=== PATIENT | female | born 1945 | race Caucasian/White ===

== ENCOUNTER 2019-04-28 09:16 | Inpatient (IN) ==
--- NOTE | 2019-04-28 09:43 | Emergency Department Note ---
Disposition Clinical Impression: Anemia Qualifiers: Anemia type: iron deficiency Iron deficiency anemia type: unspecified iron deficiency Qualified Code(s): D50.9 - Iron deficiency anemia, unspecified Disposition: Admitted As Inpatient Condition: Serious Time of Disposition: 11:40 General Adult HPI - General Chief complaint: ED Weakness Stated complaint: Bleeding from biopsy site Time Seen by Provider: 04/28/19 09:18 Source: patient Limitations: no limitations Nursing Notes Reviewed: Yes Vital Signs Reviewed: Yes - History of Present Illness HPI Narrative: 73 year old female with history of leukemia presents with generalized weakness. She had skin biopsy in the past Tuesday in [facility]. She noticed biopsy site continually bleeding on left arm. Her oncologist applied topical medicine on biopsy site. pt stated the bleeding stopped. But she still felt generalized weakness. She reported black stools in the past. Patient stated she got a phone call from [facility] that her hemoglobin level was 7.1. She was suggested to come to ER for blood transfusion. Pt stated she was on Chemotherapy. But it caused severe vaginal swelling and bleeding. The chemotherapy was stopped last week. Pt stopped ASA 81 mg three days ago. Onset (ago): day(s) (3) Pain Scale: 0 - Related Data Home Medications Medication Instructions Recorded Confirmed Omeprazole [PriLOSEC] 20 mg PO DAILY 04/28/19 04/28/19 PredniSONE [Deltasone] 20 mg PO DAILY 04/28/19 04/28/19 Allergies Allergy/AdvReac Type Severity Reaction Status Date / Time Penicillins Allergy Unknown increased Verified 03/05/19 11:42 heart rate Sulfa (Sulfonamide Allergy Unknown Unknown Verified 03/05/19 11:42 Antibiotics) ciprofloxacin [From Cipro] AdvReac See Verified 03/05/19 11:42 Comments Constitutional: Denies: fever, chills Eyes: Denies: eye pain ENT ED: Denies: ear pain Cardiovascular: Denies: chest pain Respiratory: Denies: cough Gastrointestinal: Denies: abdominal pain Genitourinary: Denies: urgency Musculoskeletal: Denies: back pain Integumentary: Denies: rash Neurological: Denies: headache Psychiatric: Denies: anxiety Endocrine: Reports: fatigue Hematological/Lymphatic: Denies: easy bleeding Allergic/Immunologic: Denies: facial swelling Past Medical History - Past Medical History Medical history: Reports: cancer Surgical history: Reports: appendectomy, , hysterectomy Psychiatric history: Reports: no psych history - Social History Smoking Status: Never smoker Smokeless Tobacco Status: No Alcohol use: Reports: none Drug use: Reports: none Physical Exam - General Limitations: no limitations General appearance: alert, in no apparent distress - Head Head exam: atraumatic - Eye Eye exam: Present: normal appearance - ENT ENT exam: normal exam - Neck Neck exam: Present: normal inspection - Chest Chest inspection: Present: normal inspection - Respiratory Respiratory exam: Present: normal lung sounds bilaterally - Cardiovascular Cardiovascular exam: Present: regular rate - Abdominal Exam Abdominal exam: Present: soft, Non-Tender - Extremities Exam Extremities exam: Present: normal inspection, full ROM. Absent: tenderness - Back Exam Back exam: Present: normal inspection, full ROM. Absent: tenderness - Neurological Exam Neurological exam: Present: alert, oriented X3, CN II-XII intact. Absent: motor sensory deficit - Psychiatric Psychiatric exam: Present: normal affect - Skin Skin exam: Present: warm. Absent: intact (biopsy site on left forearm, no active bleeding) Course Vital Signs Temperature 98.2 F 04/28/19 09:17 Pulse Rate 80 04/28/19 09:17 Respiratory Rate 18 04/28/19 09:17 Blood Pressure 124/54 04/28/19 09:17 O2 Sat by Pulse Oximetry 99 04/28/19 09:17 Temperature 98.9 F 04/28/19 12:31 Pulse Rate 77 04/28/19 12:31 Respiratory Rate 16 04/28/19 13:53 Blood Pressure 111/44 04/28/19 13:53 O2 Sat by Pulse Oximetry 99 04/28/19 12:31 Oxygen Delivery Oxygen Delivery Room Air Medical Decision Making - [facility] Narrative Medical decision making narrative: 73 year old female with history of CLL presents with generalized weakness. pt reported recently biopsy on left arm. It kept bleeding since Tuesday. Oncologist in [facility] applied topic medication on it. The bleeding stopped. Pt reported black stool twice in the past week. She had hemoglobin level 7.1 last week. Today's labs: hemoglobin 6.6, white cell 329. Pt declined rectal exam. Spoke with [facility] oncall Hemotologist. She is not sure pt's oncologist's plan for CLL; pt's situation is chronic; she needs admission for observation and blood transfusion. Shared decision making with pt and her daughter. Pt is offered two options admit to [place] or transfer to [facility]. Pt prefers to stay in [place] for blood transfusion. Dr. Hayes has seen the patient and agrees the above plan. 2 units red cell ordered. - Lab Data Lab results reviewed: Yes I reviewed the patient's lab results. Result diagrams: 04/28/19 09:34 04/28/19 09:34 Lab Results 04/28/19 04/28/19 04/28/19 Range/Units 09:34 09:34 09:34 WBC 329.2 H* (4.3-11.1) K/mcL RBC 2.95 L (3.82-4.97) M/mcL Hgb 6.6 L (11.5-15.4) g/dL Hct 25.4 L (35.3-44.9) % MCV 86.1 (83.0-100.0) fL MCH 22.4 L (28.0-33.3) pg MCHC 26.0 L (31.6-35.5) g/dL RDW 20.4 H (11.5-14.5) % Plt Count 321 (140-400) K/mcL MPV 8.5 L (9.4-12.4) fL Immature Gran % Test Not Performed Seg Neutrophils % Test Not Performed Lymphocytes % 98.0 % Monocytes % 2.0 % Eosinophils % Test Not Performed Basophils % Test Not Performed Neutrophils # Test Not Performed Lymphocytes # 322.6 H (0.6-4.6) K/mcL Monocytes # 6.6 H (0.0-1.3) K/mcL Eosinophils # Test Not Performed Basophils # Test Not Performed Smudge Cells Present A (Not Present) Platelet Estimate Normal (Normal) Anisocytosis 1+ A (Not Present) PT 11.8 (9.4-12.1) Seconds INR 1.0 APTT 29.7 (26.0-36.0) Seconds Sodium 133 L (136-145) mEq/L Potassium 5.1 (3.5-5.1) mEq/L Chloride 98 (98-107) mEq/L Carbon Dioxide 26 (23-29) mEq/L BUN 24 H (8-23) mg/dL Creatinine 0.84 (0.60-1.20) mg/dL Est GFR ( Amer) > 60 (> 60) Est GFR (Non-Af Amer) > 60 (> 60) BUN/Creatinine Ratio 29 H (6-26) Glucose 101 (70-105) mg/dL Calculated Osmolality 280 (280-300) Calcium 8.9 (8.6-10.3) mg/dL Total Bilirubin 0.5 (0.3-1.0) mg/dL AST 21 (13-39) Units/L ALT 20 (7-52) Units/L Alkaline Phosphatase 97 (34-104) Units/L Serum Total Protein 6.4 (6.4-8.9) g/dL Albumin 3.6 (3.5-5.7) g/dL Globulin 2.8 (2.4-3.5) g/dL Albumin/Globulin Ratio 1.3 (1.1-2.2) Urine Color (Yellow) Urine Clarity (Clear) Urine pH (5.0-8.0) pH Units Ur Specific [place] (1.010-1.025) Urine Protein (Neg-Trace) mg/dL Urine Glucose (UA) (Normal) mg/dL Urine Ketones (Negative) mg/dL Urine Blood (Negative) Urine Nitrite (Negative) Urine Bilirubin (Negative) Urine Urobilinogen (Normal) mg/dL Ur Leukocyte Esterase (Negative) Urine Microscopic RBC (0-3) per hpf Urine Microscopic WBC (0-3) per hpf Ur Squamous Epith Cells (None-Few) per lpf Urine Bacteria (None-Few) per hpf Hyaline Casts (None-Few) per lpf Ur Culture Indicated? (NO) Blood Type Antibody Screen MTS Gel Crossmatch 04/28/19 04/28/19 Range/Units 09:43 11:30 WBC (4.3-11.1) K/mcL RBC (3.82-4.97) M/mcL Hgb (11.5-15.4) g/dL Hct (35.3-44.9) % MCV (83.0-100.0) fL MCH (28.0-33.3) pg MCHC (31.6-35.5) g/dL RDW (11.5-14.5) % Plt Count (140-400) K/mcL MPV (9.4-12.4) fL Immature Gran % Seg Neutrophils % Lymphocytes % % Monocytes % % Eosinophils % Basophils % Neutrophils # Lymphocytes # (0.6-4.6) K/mcL Monocytes # (0.0-1.3) K/mcL Eosinophils # Basophils # Smudge Cells (Not Present) Platelet Estimate (Normal) Anisocytosis (Not Present) PT (9.4-12.1) Seconds INR APTT (26.0-36.0) Seconds Sodium (136-145) mEq/L Potassium (3.5-5.1) mEq/L Chloride (98-107) mEq/L Carbon Dioxide (23-29) mEq/L BUN (8-23) mg/dL Creatinine (0.60-1.20) mg/dL Est GFR ( Amer) (> 60) Est GFR (Non-Af Amer) (> 60) BUN/Creatinine Ratio (6-26) Glucose (70-105) mg/dL Calculated Osmolality (280-300) Calcium (8.6-10.3) mg/dL Total Bilirubin (0.3-1.0) mg/dL AST (13-39) Units/L ALT (7-52) Units/L Alkaline Phosphatase (34-104) Units/L Serum Total Protein (6.4-8.9) g/dL Albumin (3.5-5.7) g/dL Globulin (2.4-3.5) g/dL Albumin/Globulin Ratio (1.1-2.2) Urine Color Yellow (Yellow) Urine Clarity Cloudy A (Clear) Urine pH 6.0 (5.0-8.0) pH Units Ur Specific [place] 1.017 (1.010-1.025) Urine Protein 30 H (Neg-Trace) mg/dL Urine Glucose (UA) Normal (Normal) mg/dL Urine Ketones Negative (Negative) mg/dL Urine Blood Trace H (Negative) Urine Nitrite Positive A (Negative) Urine Bilirubin Negative (Negative) Urine Urobilinogen Normal (Normal) mg/dL Ur Leukocyte Esterase Large H (Negative) Urine Microscopic RBC 5-15 H (0-3) per hpf Urine Microscopic WBC TNTC H (0-3) per hpf Ur Squamous Epith Cells Many H (None-Few) per lpf Urine Bacteria Many H (None-Few) per hpf Hyaline Casts None Seen (None-Few) per lpf Ur Culture Indicated? YES A (NO) Blood Type A POSITIVE Antibody Screen NEGATIVE MTS Gel Crossmatch See Detail - Radiology Data Radiology results reviewed: Yes I reviewed the patient's radiology results. HISTORY: ORDERING SYSTEM PROVIDED HISTORY: ofelia Acute shortness of breath FINDINGS: Right port catheter stable. Heart, mediastinum and pulmonary vascularity are normal. The lungs are clear. There are no skeletal abnormalities in the chest. XR/XR chest 1V portable IMPRESSION: No significant finding in the chest. D/ / Joshua Xiao MD / Joshua Xiao MD Interpreting Provider: Joshua Xiao MD
--- NOTE | 2019-04-28 09:57 | Emergency Department Note ---
Disposition Clinical Impression: Anemia Qualifiers: Anemia type: iron deficiency Iron deficiency anemia type: unspecified iron deficiency Qualified Code(s): D50.9 - Iron deficiency anemia, unspecified Disposition: Admitted As Inpatient Condition: Serious Referrals: Michelet Almeida Jr, MD [Primary Care Provider] - Forms: ED Satisfaction Letter Time of Disposition: 12:30 General Adult HPI - General Chief complaint: ED Weakness Stated complaint: Bleeding from biopsy site Time Seen by Provider: 04/28/19 09:18 Source: patient Limitations: no limitations - History of Present Illness Pain Scale: 0 - Related Data Home Medications Medication Instructions Recorded Confirmed Folic Acid [FA-8] 0.8 mg PO 03/05/19 Previous Rx's Medication Instructions Recorded Azithromycin [Azithromycin 6-Tab 250 mg PO PER PKG DI #6 tab 03/05/19 Pack] Ibrutinib [Imbruvica] 420 mg PO DAILY #30 tablet 03/05/19 Allopurinol [Zyloprim 300 MG] 300 mg PO DAILY 14 Days #14 tablet 03/12/19 Allergies Allergy/AdvReac Type Severity Reaction Status Date / Time Penicillins Allergy Unknown increased Verified 03/05/19 11:42 heart rate Sulfa (Sulfonamide Allergy Unknown Unknown Verified 03/05/19 11:42 Antibiotics) ciprofloxacin [From Cipro] AdvReac See Verified 03/05/19 11:42 Comments Constitutional: Denies: fever, chills Eyes: Denies: eye pain ENT ED: Denies: ear pain Cardiovascular: Denies: chest pain Respiratory: Denies: cough Gastrointestinal: Denies: abdominal pain Genitourinary: Denies: urgency Musculoskeletal: Denies: back pain Integumentary: Denies: rash Neurological: Denies: headache Psychiatric: Denies: anxiety Endocrine: Reports: fatigue Hematological/Lymphatic: Denies: easy bleeding Allergic/Immunologic: Denies: facial swelling Past Medical History - Past Medical History Medical history: Reports: cancer Surgical history: Reports: appendectomy, , hysterectomy Psychiatric history: Reports: no psych history - Social History Smoking Status: Never smoker Smokeless Tobacco Status: No Alcohol use: Reports: none Drug use: Reports: none Physical Exam - General Limitations: no limitations General appearance: alert, in no apparent distress Course Vital Signs Temperature 98.2 F 04/28/19 09:17 Pulse Rate 80 04/28/19 09:17 Respiratory Rate 18 04/28/19 09:17 Blood Pressure 124/54 04/28/19 09:17 O2 Sat by Pulse Oximetry 99 04/28/19 09:17 Temperature 98.6 F 04/28/19 12:16 Pulse Rate 77 04/28/19 12:16 Respiratory Rate 16 04/28/19 12:16 Blood Pressure 108/38 04/28/19 12:16 O2 Sat by Pulse Oximetry 99 04/28/19 12:16 Oxygen Delivery Oxygen Delivery Room Air Medical Decision Making - Lab Data Result diagrams: 04/28/19 09:34 04/28/19 09:34 Lab Results 04/28/19 04/28/19 04/28/19 Range/Units 09:34 09:34 09:34 WBC 329.2 H* (4.3-11.1) K/mcL RBC 2.95 L (3.82-4.97) M/mcL Hgb 6.6 L (11.5-15.4) g/dL Hct 25.4 L (35.3-44.9) % MCV 86.1 (83.0-100.0) fL MCH 22.4 L (28.0-33.3) pg MCHC 26.0 L (31.6-35.5) g/dL RDW 20.4 H (11.5-14.5) % Plt Count 321 (140-400) K/mcL MPV 8.5 L (9.4-12.4) fL Immature Gran % Test Not Performed Seg Neutrophils % Test Not Performed Lymphocytes % 98.0 % Monocytes % 2.0 % Eosinophils % Test Not Performed Basophils % Test Not Performed Neutrophils # Test Not Performed Lymphocytes # 322.6 H (0.6-4.6) K/mcL Monocytes # 6.6 H (0.0-1.3) K/mcL Eosinophils # Test Not Performed Basophils # Test Not Performed Smudge Cells Present A (Not Present) Platelet Estimate Normal (Normal) Anisocytosis 1+ A (Not Present) PT 11.8 (9.4-12.1) Seconds INR 1.0 APTT 29.7 (26.0-36.0) Seconds Sodium 133 L (136-145) mEq/L Potassium 5.1 (3.5-5.1) mEq/L Chloride 98 (98-107) mEq/L Carbon Dioxide 26 (23-29) mEq/L BUN 24 H (8-23) mg/dL Creatinine 0.84 (0.60-1.20) mg/dL Est GFR ( Amer) > 60 (> 60) Est GFR (Non-Af Amer) > 60 (> 60) BUN/Creatinine Ratio 29 H (6-26) Glucose 101 (70-105) mg/dL Calculated Osmolality 280 (280-300) Calcium 8.9 (8.6-10.3) mg/dL Total Bilirubin 0.5 (0.3-1.0) mg/dL AST 21 (13-39) Units/L ALT 20 (7-52) Units/L Alkaline Phosphatase 97 (34-104) Units/L Serum Total Protein 6.4 (6.4-8.9) g/dL Albumin 3.6 (3.5-5.7) g/dL Globulin 2.8 (2.4-3.5) g/dL Albumin/Globulin Ratio 1.3 (1.1-2.2) Urine Color (Yellow) Urine Clarity (Clear) Urine pH (5.0-8.0) pH Units Ur Specific [place] (1.010-1.025) Urine Protein (Neg-Trace) mg/dL Urine Glucose (UA) (Normal) mg/dL Urine Ketones (Negative) mg/dL Urine Blood (Negative) Urine Nitrite (Negative) Urine Bilirubin (Negative) Urine Urobilinogen (Normal) mg/dL Ur Leukocyte Esterase (Negative) Urine Microscopic RBC (0-3) per hpf Urine Microscopic WBC (0-3) per hpf Ur Squamous Epith Cells (None-Few) per lpf Urine Bacteria (None-Few) per hpf Hyaline Casts (None-Few) per lpf Ur Culture Indicated? (NO) Blood Type Antibody Screen MTS Gel Crossmatch 04/28/19 04/28/19 Range/Units 09:43 11:30 WBC (4.3-11.1) K/mcL RBC (3.82-4.97) M/mcL Hgb (11.5-15.4) g/dL Hct (35.3-44.9) % MCV (83.0-100.0) fL MCH (28.0-33.3) pg MCHC (31.6-35.5) g/dL RDW (11.5-14.5) % Plt Count (140-400) K/mcL MPV (9.4-12.4) fL Immature Gran % Seg Neutrophils % Lymphocytes % % Monocytes % % Eosinophils % Basophils % Neutrophils # Lymphocytes # (0.6-4.6) K/mcL Monocytes # (0.0-1.3) K/mcL Eosinophils # Basophils # Smudge Cells (Not Present) Platelet Estimate (Normal) Anisocytosis (Not Present) PT (9.4-12.1) Seconds INR APTT (26.0-36.0) Seconds Sodium (136-145) mEq/L Potassium (3.5-5.1) mEq/L Chloride (98-107) mEq/L Carbon Dioxide (23-29) mEq/L BUN (8-23) mg/dL Creatinine (0.60-1.20) mg/dL Est GFR ( Amer) (> 60) Est GFR (Non-Af Amer) (> 60) BUN/Creatinine Ratio (6-26) Glucose (70-105) mg/dL Calculated Osmolality (280-300) Calcium (8.6-10.3) mg/dL Total Bilirubin (0.3-1.0) mg/dL AST (13-39) Units/L ALT (7-52) Units/L Alkaline Phosphatase (34-104) Units/L Serum Total Protein (6.4-8.9) g/dL Albumin (3.5-5.7) g/dL Globulin (2.4-3.5) g/dL Albumin/Globulin Ratio (1.1-2.2) Urine Color Yellow (Yellow) Urine Clarity Cloudy A (Clear) Urine pH 6.0 (5.0-8.0) pH Units Ur Specific [place] 1.017 (1.010-1.025) Urine Protein 30 H (Neg-Trace) mg/dL Urine Glucose (UA) Normal (Normal) mg/dL Urine Ketones Negative (Negative) mg/dL Urine Blood Trace H (Negative) Urine Nitrite Positive A (Negative) Urine Bilirubin Negative (Negative) Urine Urobilinogen Normal (Normal) mg/dL Ur Leukocyte Esterase Large H (Negative) Urine Microscopic RBC 5-15 H (0-3) per hpf Urine Microscopic WBC TNTC H (0-3) per hpf Ur Squamous Epith Cells Many H (None-Few) per lpf Urine Bacteria Many H (None-Few) per hpf Hyaline Casts None Seen (None-Few) per lpf Ur Culture Indicated? YES A (NO) Blood Type A POSITIVE Antibody Screen NEGATIVE MTS Gel Crossmatch See Detail Attestation Statement - Attestation Attestation: For this encounter, I have reviewed the AMBULATORY SERVICE REPRESENTATIVE or PA documentation, treatment plan, and medical decision making; and I have had face to face time with this patient. Patient presents with a request for a blood transfusion. Patient states she had a biopsy on her arm performed and it bled for 2 straight days. She states the urgent care doctor and her oncologist told her to come to the ED to get a blood transfusion. Patient's last transfusion was in 2012. She is currently not on any active treatment for her chronic leukemia. She denies fevers. She does admit to generalized weakness. She also admits to dark her bowel movements this week. She had an episode of near syncope a few days ago. No chest pain or shortness of breath. Denies urinary symptoms. Denies cough. On examination she is in no distress. Her lungs are clear. Her abdomen is soft nontender. Plan. Patient refuses rectal exam. Basic labs. Type and screen. Chest x-ray urinalysis. Hemoglobin is 6. The case was discussed with her oncologist at [facility]. I agree that she needs a blood transfusion. Nothing to do acutely for her leukocytosis. Patient will be admitted. Chest X-Ray 04/28/19 09:55 IMPRESSION: No significant finding in the chest. D/ / Joshua Xiao MD / Joshua Xiao MD Interpreting Provider: Joshua Xiao MD
[2019-04-28 10:15] LABS: Alanine Aminotransferase 20 Units/L (7-52); Albumin 3.6 g/dL (3.5-5.7); Albumin/Globulin Ratio 1.3 (1.1-2.2); Alkaline Phosphatase 97 Units/L (34-104); Aspartate Amino Transferase 21 Units/L (13-39); BUN/Creatinine Ratio 29 (6-26); Bilirubin,Total 0.5 mg/dL (0.3-1.0); Blood Urea Nitrogen 24 mg/dL (8-23); Calcium 8.9 mg/dL (8.6-10.3); Carbon Dioxide 26 mEq/L (23-29); Chloride 98 mEq/L (98-107); Globulin 2.8 g/dL (2.4-3.5); Glucose 101 mg/dL (70-105); Osmolality,Calculated 280 (280-300); Potassium 5.1 mEq/L (3.5-5.1); Sodium 133 mEq/L (136-145); Total Protein 6.4 g/dL (6.4-8.9); eGFR For African Americans > 60 (> 60); eGFR For Non-African Americans > 60 (> 60)
[2019-04-28 10:32] LABS: Hematocrit 25.4 % (35.3-44.9); Red Cell Distribution Width 20.4 % (11.5-14.5)
[2019-04-28 10:34] LABS: Hemoglobin 6.6 g/dL (11.5-15.4); Mean Corpuscular Hemoglobin 22.4 pg (28.0-33.3); Mean Corpuscular Volume 86.1 fL (83.0-100.0); Mean Platelet Volume 8.5 fL (9.4-12.4); Platelet Count 321 K/mcL (140-400); Red Blood Count 2.95 M/mcL (3.82-4.97)
[2019-04-28 10:43] LABS: Prothrombin Time 11.8 Seconds (9.4-12.1)
[2019-04-28 10:44] LABS: White Blood Count 329.2 K/mcL (4.3-11.1)
[2019-04-28 10:46] LABS: Activated Partial Thrombo Time 29.7 Seconds (26.0-36.0)
[2019-04-28 11:45] LABS: Bilirubin,Urine Negative (Negative); Blood,Urine Trace (Negative); Clarity,Urine Cloudy (Clear); Color,Urine Yellow (Yellow); Glucose,Urine (UA) Normal (Normal); Ketones,Urine Negative (Negative); Leukocyte Esterase,Urine Large (Negative); Nitrite,Urine Positive (Negative); Protein,Urine 30 mg/dL (Neg-Trace); Specific Gravity,Urine 1.017 (1.010-1.025); Urobilinogen,Urine Normal (Normal)
[2019-04-28 11:47] LABS: Bacteria,Urine Many per hpf (None-Few); Hyaline Casts,Urine None Seen per lpf (None-Few); Squamous Epithelial Cell,Urine Many per lpf (None-Few); WBC,Urine TNTC per hpf (0-3)
[2019-04-28 11:55] LABS: Lymphocytes # 322.6 K/mcL (0.6-4.6); Monocytes # 6.6 K/mcL (0.0-1.3)
[2019-04-28 11:57] LABS: Anisocytosis 1+ (Not Present); Platelet Estimate Normal (Normal); Smudge Cells Present (Not Present)
[2019-04-28] MEDS ORDERED: 0.9 % Sodium Chloride 500 ML ONE (11:58)
[2019-04-28] MEDS ORDERED: Naloxone 0.4 MG/ML INJ IVP PRN (12:38)
[2019-04-28] MEDS ORDERED: Ondansetron 4 MG/2 ML VIAL IVP PRN (12:40)
--- NOTE | 2019-04-28 13:05 | Internal Med History&Physical ---
Date of Encounter: 04/28/19 Time of Encounter: 13:00 Internal Medicine - H&P: HPI Chief complaint: Anemia Admitted From: Emergency Dept Plans for Post Hospital Care: Home History of present illness: Ms. Vega is a 73 year old female with history of CLL who follows at the [facility] who presents with low hemoglobin. She had skin biopsy in the past Tuesday in [facility]. She noticed biopsy site continually bleeding on left arm. A physician at an urgent care put some topical agent on it and it stopped bleeding. But she since then she has felt generalized weakness. She reported a couple of black stool. Patient stated she got a phone call from [facility] that her hemoglobin level was 7.1. She was suggested to come to ER for blood transfusion. Pt stated she was on Chemotherapy. But it caused severe vaginal swelling and bleeding. The chemotherapy was stopped last week. Pt stopped ASA three days ago. Hgb was 6.6 in the ED. WBC count was over 300K. UA was positive but no urinary symptoms. Denies fever, chills, headche, blurry vision, nausea,vomiting, chest pain, abd pain, urinary symptoms, or neurological symptosm. Past Med Surg Social Fam HX - Past Medical History Medical history: cancer Additional medical history: Lukemia (CLL) Psychiatric history: no psych history - Past Surgical History Surgical History: appendectomy, , hysterectomy - Social History Smoking Status: Never smoker Smokeless Tobacco Status: No Alcohol use: none Drug use: none Internal Medicine - H&P: Meds Azithromycin [Azithromycin 6-Tab Pack] 250 mg PO PER PKG DI #6 tab 03/05/19 [Rx] Folic Acid [FA-8] 0.8 mg PO 03/05/19 [History] Ibrutinib [Imbruvica] 420 mg PO DAILY #30 tablet 03/05/19 [Rx] Allopurinol [Zyloprim 300 MG] 300 mg PO DAILY 14 Days #14 tablet 03/12/19 [Rx] Allergy/AdvReac Type Severity Reaction Status Date / Time Penicillins Allergy Unknown increased Verified 03/05/19 11:42 heart rate Sulfa (Sulfonamide Allergy Unknown Unknown Verified 03/05/19 11:42 Antibiotics) ciprofloxacin [From Cipro] AdvReac See Verified 03/05/19 11:42 Comments All Systems PM: A 10-system review of systems was performed and is negative for pertinent findings except as documented above in the HPI. Review of systems: All systems reviewed are negative except as above. - Constitutional Vitals: Temp Pulse Resp BP Pulse Ox 98.9 F 77 16 111/51 99 04/28/19 12:31 04/28/19 12:31 04/28/19 12:31 04/28/19 12:31 04/28/19 12:31 Exam: GEN: NAD HEENT: AT, NC, No cyanosis, oral mucosa is moist, No JVD Lymphatics: No lymphadenoapthy Eyes: Extrocular muscles intact, anicteric CVS:RRR. S1, S2, No m/r/g RESP: CTAB ABD: Soft, NT, ND, +BS EXT: No edema, No rashes, 2+ DP NEURO: Nonfocal, CN II-XII intact, No focal motor or sensory deficits Psych: Cooperative, Not anxious or depressed Internal Med - H&P Results - Labs CBC & Chem 7: 04/28/19 09:34 04/28/19 09:34 Labs: Short CBC 04/28/19 Range/Units 09:34 WBC 329.2 H* (4.3-11.1) K/mcL Hgb 6.6 L (11.5-15.4) g/dL Hct 25.4 L (35.3-44.9) % Plt Count 321 (140-400) K/mcL Neutrophils # Test Not Performed [facility] 04/28/19 09:34 Sodium 133 L Potassium 5.1 Chloride 98 Carbon Dioxide 26 BUN 24 H Creatinine 0.84 Glucose 101 Calcium 8.9 Liver Function 04/28/19 Range/Units 09:34 Total Bilirubin 0.5 (0.3-1.0) mg/dL AST 21 (13-39) Units/L ALT 20 (7-52) Units/L Alkaline Phosphatase 97 (34-104) Units/L Albumin 3.6 (3.5-5.7) g/dL Urine 04/28/19 Range/Units 11:30 Urine Color Yellow (Yellow) Urine Clarity Cloudy A (Clear) Urine pH 6.0 (5.0-8.0) pH Units Ur Specific [place] 1.017 (1.010-1.025) Urine Protein 30 H (Neg-Trace) mg/dL Urine Glucose (UA) Normal (Normal) mg/dL - Impressions ITS Impressions Chest X-Ray 04/28/19 09:55 IMPRESSION: No significant finding in the chest. D/ / Joshua Xiao MD / Joshua Xiao MD Interpreting Provider: Joshua Xiao MD - Assessment and Plan (1) Anemia Current Visit: Yes Status: Acute Assessment and plan: 2 units ordered in the ED. labs in am. check FOBT. If + will consult GI. Qualifiers: Anemia type: iron deficiency Iron deficiency anemia type: unspecified iron deficiency Qualified Code(s): D50.9 - Iron deficiency anemia, unspecified (2) Asymptomatic bacteriuria Current Visit: Yes Status: Acute (3) CLL (chronic lymphocytic leukemia) Current Visit: No Status: Chronic Assessment and plan: f/u with lens polisher at [facility] (4) DVT prophylaxis Current Visit: Yes Status: Acute Assessment and plan: scds - Time Spent With Patient Total time spent is greater than 50% in coordination of care (as documented) at patient's floor/unit and/or counseling patient:
[2019-04-28] MEDS ORDERED: 0.9 % Sodium Chloride 250 ML ONE (14:25)
[2019-04-29 09:47] LABS: Mean Corpuscular HGB Conc 27.6 g/dL (31.6-35.5); Mean Corpuscular Hemoglobin 23.5 pg (28.0-33.3); Mean Platelet Volume 8.8 fL (9.4-12.4); Platelet Count 255 K/mcL (140-400); Red Blood Count 3.41 M/mcL (3.82-4.97); Red Cell Distribution Width 19.6 % (11.5-14.5)
[2019-04-29 09:55] LABS: BUN/Creatinine Ratio 30 (6-26); Blood Urea Nitrogen 20 mg/dL (8-23); Calcium 8.9 mg/dL (8.6-10.3); Carbon Dioxide 24 mEq/L (23-29); Chloride 101 mEq/L (98-107); Glucose 139 mg/dL (70-105); Magnesium 2.2 mg/dL (1.6-2.6); Osmolality,Calculated 289 (280-300); Potassium 4.4 mEq/L (3.5-5.1); Sodium 137 mEq/L (136-145); eGFR For African Americans > 60 (> 60); eGFR For Non-African Americans > 60 (> 60)
[2019-04-29 09:57] LABS: White Blood Count 249.6 K/mcL (4.3-11.1)
[2019-04-29 10:52] LABS: Lymphocytes # 229.6 K/mcL (0.6-4.6)
[2019-04-29 10:53] LABS: Platelet Estimate Normal (Normal); Smudge Cells Present (Not Present)
[2019-04-29] MEDS: predniSONE 20 MG TABLET PO SCH (12:06)
--- NOTE | 2019-04-29 14:51 | Internal Med Progress Note ---
Hospitalist Progress Note - Encounter Date of Encounter: 04/29/19 Time of Encounter: 14:49 - Subjective Interval History: Patient seen and examined. Transfused 2 units PRBCs yesterday his hemoglobin is 8.0. Came back positive for blood in the stools - Exam Vitals: Temp Pulse Resp BP Pulse Ox 97.6 F 68 16 111/66 98 04/29/19 11:07 04/29/19 11:07 04/29/19 11:07 04/29/19 11:07 04/29/19 11:16 Exam: GEN: NAD CVS: RRR. S1, S2, No m/r/g RESP: CTAB ABD: Soft, NT, ND, +BS EXT: No edema. 2+ DP. No rashes NEURO: Nonfocal - Assessment and Plan (1) Anemia Current Visit: Yes Status: Acute Assessment and Plan: 2 units ordered in the ED yesterday. Hgb 8 today. no need to transfuse today. + FOBT and GI consulted. NPO at midnight (2) GI bleed Current Visit: Yes Status: Acute Assessment and Plan: Reported dark stools. + FOBT. GI consulted. IV PPI BID ordered. (3) Asymptomatic bacteriuria Current Visit: Yes Status: Acute Assessment and Plan: Not treating. (4) CLL (chronic lymphocytic leukemia) Current Visit: No Status: Chronic Assessment and Plan: f/u with urban sociologist at [facility] (5) DVT prophylaxis Current Visit: Yes Status: Acute Assessment and Plan: scds - Time Spent with Patient Total time spent is greater than 50% in coordination of care (as documented) at patient's floor/unit and/or counseling patient: Internal Medicine: Result - Labs CBC & Chem 7: 04/29/19 08:32 04/29/19 08:32 Labs: Short CBC 04/29/19 Range/Units 08:32 WBC 249.6 H* (4.3-11.1) K/mcL Hgb 8.0 L (11.5-15.4) g/dL Hct 29.0 L (35.3-44.9) % Plt Count 255 (140-400) K/mcL Neutrophils # 5.0 (1.6-8.9) K/mcL BMP 04/29/19 08:32 Sodium 137 Potassium 4.4 Chloride 101 Carbon Dioxide 24 BUN 20 Creatinine 0.67 Glucose 139 H Calcium 8.9 - ABG Interpretation ABG results: PT/INR, D-dimer PT 11.8 Seconds (9.4-12.1) 04/28/19 09:34 Consult Discharge Plan - Plan Referrals: Michelet Almeida Jr, MD [Primary Care Provider] - (1) Anemia Qualifiers: Anemia type: iron deficiency Iron deficiency anemia type: unspecified iron deficiency Qualified Code(s): D50.9 - Iron deficiency anemia, unspecified
[2019-04-29] MEDS: Pantoprazole 40 MG VIAL IVP SCH (17:51)
[2019-04-30] MEDS: Pantoprazole 40 MG VIAL IVP SCH ×2 (04:17→17:01)
--- NOTE | 2019-04-30 06:18 | Electrocardiograph Report ---
[facility] Test Date: 2019-04-28 Pat Name: Miguelina Vega Department: EXAM9 Room: 2A38 Gender: F Advanced Developer: : 1945 Requested By: Eun See Order Number: [id number] Reading MD: Tio Burr Measurements Intervals [place] Rate: 81 P: 48 WA: 137 QRS: -55 QRSD: 109 T: 67 QT: 369 QTc: 429 Interpretive Statements Sinus rhythm Left anterior fascicular block Abnormal R-wave progression, late transition Probable left ventricular hypertrophy Electronically Signed On 04-30-2019 6:16:19 EDT by Tio Burr
[2019-04-30 06:30] LABS: Red Blood Count 3.28 M/mcL (3.82-4.97)
[2019-04-30 06:31] LABS: Hematocrit 27.9 % (35.3-44.9); Hemoglobin 7.7 g/dL (11.5-15.4); Mean Corpuscular HGB Conc 27.6 g/dL (31.6-35.5); Mean Corpuscular Hemoglobin 23.5 pg (28.0-33.3); Mean Corpuscular Volume 85.1 fL (83.0-100.0); Mean Platelet Volume 9.2 fL (9.4-12.4); Platelet Count 269 K/mcL (140-400)
[2019-04-30 06:38] LABS: White Blood Count 260.5 K/mcL (4.3-11.1)
[2019-04-30 06:47] LABS: BUN/Creatinine Ratio 36 (6-26); Blood Urea Nitrogen 24 mg/dL (8-23); Calcium 8.9 mg/dL (8.6-10.3); Carbon Dioxide 26 mEq/L (23-29); Chloride 100 mEq/L (98-107); Glucose 88 mg/dL (70-105); Magnesium 2.1 mg/dL (1.6-2.6); Osmolality,Calculated 283 (280-300); Potassium 5.1 mEq/L (3.5-5.1); Sodium 135 mEq/L (136-145); eGFR For African Americans > 60 (> 60); eGFR For Non-African Americans > 60 (> 60)
--- NOTE | 2019-04-30 08:29 | Internal Med Progress Note ---
Hospitalist Progress Note - Encounter Date of Encounter: 04/30/19 Time of Encounter: 08:28 - Subjective Interval History: Patient seen and examined. Transfused 2 units PRBCs on admission. Hgb down to 7.7. Came back + FOBT. GI consulted. - Exam Vitals: Temp Pulse Resp BP Pulse Ox 98.9 F 66 16 123/67 99 04/30/19 07:20 04/30/19 07:20 04/30/19 07:20 04/30/19 07:20 04/30/19 07:20 Exam: GEN: NAD CVS: RRR. S1, S2, No m/r/g RESP: CTAB ABD: Soft, NT, ND, +BS EXT: No edema. 2+ DP. No rashes NEURO: Nonfocal - Assessment and Plan (1) Anemia Current Visit: Yes Status: Acute Assessment and Plan: 2 units ordered in the ED on admission. Hgb down to 7.7 this am. Was 8 yesterday. no need to transfuse today. + FOBT and GI consulted. NPO. IV PPI ordered. (2) GI bleed Current Visit: Yes Status: Acute Assessment and Plan: Reported dark stools. + FOBT. GI consulted. IV PPI BID ordered. (3) Asymptomatic bacteriuria Current Visit: Yes Status: Acute Assessment and Plan: Not treating initially but today she tells me she is having burning sensation. At first she thought it was due to recent labia procedure she had. Will start IV rocephin. (4) UTI (urinary tract infection) Current Visit: Yes Status: Acute Assessment and Plan: Start Rocephin. f/u on cultures (5) CLL (chronic lymphocytic leukemia) Current Visit: No Status: Chronic Assessment and Plan: f/u with peoplesoft analyst at [facility] (Dr. Franks). Does not want our hematologists/oncologists involved. Please fax discharge and hospital details to Dr. Franks at discharge. (6) DVT prophylaxis Current Visit: Yes Status: Acute Assessment and Plan: scds - Time Spent with Patient Total time spent is greater than 50% in coordination of care (as documented) at patient's floor/unit and/or counseling patient: Internal Medicine: Result - Labs CBC & Chem 7: 04/30/19 05:33 04/30/19 05:33 Labs: Short CBC 04/29/19 04/30/19 Range/Units 08:32 05:33 WBC 249.6 H* 260.5 H* (4.3-11.1) K/mcL Hgb 8.0 L 7.7 L (11.5-15.4) g/dL Hct 29.0 L 27.9 L (35.3-44.9) % Plt Count 255 269 (140-400) K/mcL Neutrophils # 5.0 (1.6-8.9) K/mcL BMP 04/29/19 04/30/19 08:32 05:33 Sodium 137 135 L Potassium 4.4 5.1 Chloride 101 100 Carbon Dioxide 24 26 BUN 20 24 H Creatinine 0.67 0.67 Glucose 139 H 88 Calcium 8.9 8.9 - ABG Interpretation ABG results: PT/INR, D-dimer PT 11.8 Seconds (9.4-12.1) 04/28/19 09:34 Consult Discharge Plan - Plan Referrals: Michelet Almeida Jr, MD [Primary Care Provider] - (1) Anemia Qualifiers: Anemia type: iron deficiency Iron deficiency anemia type: unspecified iron deficiency Qualified Code(s): D50.9 - Iron deficiency anemia, unspecified (4) UTI (urinary tract infection) Qualifiers: Urinary tract infection type: site unspecified Hematuria presence: without h ematuria Qualified Code(s): N39.0 - Urinary tract infection, site not specified
[2019-04-30] MEDS: predniSONE 20 MG TABLET PO SCH (10:22)
[2019-04-30] MEDS: Acetaminophen 325 MG TABLET PO PRN (10:53)
[2019-04-30] MEDS: cefTRIAXone 2,000 MG in Water for inj. (sterile) 20 ML 20 ML IVP SCH (10:59)
[2019-04-30 11:29] LABS: Neutrophils # 260.5 K/mcL (1.6-8.9); Smudge Cells Present (Not Present)
[2019-04-30 11:30] LABS: Platelet Estimate Normal (Normal)
[2019-04-30] MEDS ORDERED: Lidocaine -MPF 2% 2 ML VIAL ONE (11:34)
[2019-04-30] MEDS ORDERED: *HR* Propofol 200 MG/20 ML VIAL IVP ONE (11:34)
--- NOTE | 2019-04-30 11:48 | Gastroenterology Consult Note ---
<Alexys Nieves - Last Filed: 04/30/19 11:46> Date of Encounter: 04/30/19 Time of Encounter: 09:55 - Assessment and plan (1) Anemia Status: Acute Assessment and plan: On admission, Hgb 6.6 and this morning Hgb 7.7 with MCV 85.1. Continue to monitor CBC and transfuse PRBC as needed. Plan for EGD today to r/o esophagitis, gastritis, duodenitis, PUD, MW tear, or AVM. Keep NPO for EGD.. Qualifiers: Anemia type: iron deficiency Iron deficiency anemia type: unspecified iron deficiency Qualified Code(s): D50.9 - Iron deficiency anemia, unspecified (2) GI bleed Status: Acute Assessment and plan: Fecal occult blood test positive. Continue PPI. Plan for EGD today to r/o esophagitis, gastritis, duodenitis, PUD, MW tear, or AVM. Keep NPO for EGD. Qualifiers: GI bleed type/associated pathology: unspecified gastrointestinal hemorrhage type Qualified Code(s): K92.2 - Gastrointestinal hemorrhage, unspecified (3) CLL (chronic lymphocytic leukemia) Status: Chronic - Time Spent With Patient Total time spent is greater than 50% in coordination of care (as documented) at patient's floor/unit and/or counseling patient: GI History of Present Illness - Data of Consult Patient: new to practice Consult date: 04/30/19 Requesting Physician: Raeann Mcmullen - Consult Narrative Reason for consult: Acute anemia History of present illness: Ms. Vega is a 73 year old female with PMHx of CLL (follow at [facility]) who presented with Hgb 6.6. She reports having a skin biopsy of left arm at [facility] which continued to bleed. A physician at an urgent care put some topical agent on it and it stopped bleeding. She also reports having several episodes of black stool. She denies fever, chills, chest pain, abdominal pain, nausea, vomiting, or hematochezia. Patient stated she got a phone call from [facility] that her hemoglobin level was 7.1 and was suggested to come to ER for blood transfusion. On admission, Hgb 6.6 and this morning Hgb 7.7 with MCV 85.1. Procedures: Colonoscopy 05/17/2016 Dr. Sarah Ann: Aborted due to restricted no ability of colon, Sigmoid and rectum normal. NSAIDs: None Anticoagulation: None Past Med Surg Social Fam HX - Past Medical History Medical history: cancer, DVT Additional medical history: Lukemia (CLL) Psychiatric history: no psych history - Past Surgical History Surgical History: appendectomy, , hysterectomy - Social History Smoking Status: Never smoker Smokeless Tobacco Status: No Alcohol use: none Drug use: none - Gastrointestinal Gastrointestinal: Present: as per HPI - Constitutional Constitutional: as per HPI - EENT Eyes: as per HPI Ears: Present: as per HPI Nose, mouth and throat: Present: as per HPI - Cardiovascular Cardiovascular ROS: Present: as per HPI - Respiratory Respiratory IM: Present: as per HPI - Genitourinary Genitourinary: Absent: change in color, Urinary frequency - Neurological ROS Neurological GI: Present: as per HPI - Hematologic/Lymphatic Hematologic/Lymphatic pediatric: Present: as per HPI - Musculoskeletal Musculoskeletal ROS GI: Present: as per HPI - Integumentary Integumentary GI: Present: as per HPI - Psychiatric ROS Psychiatric GI: Present: as per HPI - Endocrine Endocrine IM: Present: as per HPI - Constitutional Vitals: Temp Pulse Resp BP Pulse Ox 100.0 F H 72 16 134/72 98 04/30/19 10:50 04/30/19 10:50 04/30/19 10:50 04/30/19 10:50 04/30/19 10:50 General appearance: Present: cooperative, A&O X 3, no acute distress, answers questions appropriately - Head Head exam: Present: atraumatic, normocephalic - Eye Eye exam: Present: normal appearance, sclera anicteric - ENT ENT exam: Present: mucous membranes dry - Neck Neck exam general surgery: Present: normal inspection, trachea midline - Respiratory Respiratory exam: Present: CTAB. Absent: rales, rhonchi - Cardiovascular Cardiovascular exam: Present: RRR, +S1, +S2 - GI/Abdominal GI/Abdominal exam: Present: soft, no peritoneal signs. Absent: distended, firm, guarding, tenderness - Rectal Rectal exam: Present: deferred - Extremities Exam Extremities exam: Present: warm - Neurological Exam Neurological exam: Present: no focal deficits - Psychiatric Psychiatric exam: Present: normal affect, normal mood - Skin Skin exam: Present: dry, intact, normal color, warm Results - Labs CBC & Chem 7: 04/30/19 05:33 04/30/19 05:33 Labs: Last Result 04/30/19 05:33 Calcium 8.9 Entire Visit 04/30/19 05:33 Hgb 7.7 L Hct 27.9 L - ABG ABG results: PT/INR, D-dimer PT 11.8 Seconds (9.4-12.1) 04/28/19 09:34 Consult Discharge Plan - Plan Instructions: Omeprazole (By mouth), Eye Lubricant (Into the eye), Chest Pain (DC), Acute Abdominal Pain (DC) Referrals: Vivian Huang MD [Other] - 05/29/19 1:20 pm (Please follow-up with Dr. Huang on May 29 at 01:20) Michelet Almeida Jr, MD [Primary Care Provider] - 05/11/19 2:30 pm (Please follow-up as scheduled with Dr. Almeida) Prescriptions: Artificial Tears SOLN [Akwa Tears] 1 drop BOTH EYES QID PRN #1 bottle PRN Reason: Allergy Symptoms Omeprazole [PriLOSEC] 40 mg PO BIDAC #60 capsule. <Lazarus Greene - Last Filed: 05/07/19 06:07> Date of Encounter: 04/30/19 - Time Spent With Patient Total time spent is greater than 50% in coordination of care (as documented) at patient's floor/unit and/or counseling patient: GI History of Present Illness - Data of Consult Requesting Physician: Suzy Guadarrama - Consult Narrative History of present illness: Ms. Vega is a 73 year old female - Constitutional Vitals: Temp Pulse Resp BP Pulse Ox 97.9 F 70 17 100/49 97 05/05/19 16:37 05/05/19 16:37 05/05/19 16:37 05/05/19 16:37 05/05/19 16:37 Results - Labs CBC & Chem 7: 05/05/19 01:37 05/05/19 01:37 - ABG ABG results: PT/INR, D-dimer PT 11.8 Seconds (9.4-12.1) 04/28/19 09:34 - Attending Attestation I have personally performed a face to face evaluation on this patient. I have reviewed and agree with the care plan. History and Exam by me shows:Patient admitted wtih severe anemia. She has underlying CLL. Plan EGD first. History of a colonoscopy in past. Will review.
--- NOTE | 2019-04-30 12:46 | Anesthesia Evaluation PreOp ---
Date of Encounter: 04/30/19 Time of Encounter: 12:45 - Past History Planned Operation: EGD Cardiac History: Other (Anemia) Pulmonary History: Denies Any Significant HX COOK PRESSURE History: Denies Any Significant HX Other Medical History: GERD, Other (CLL being followed at [facility]) Anesthesia History: No Prior Anesthetic Complications Alcohol Use: none Drug use: none Medications and Allergies Hydrocortisone/Pramoxine [Hydrocort-Pramoxine 2.5%-1% cm] 1 applic TP AD 9 [History] Omeprazole [PriLOSEC] 20 mg PO DAILY 04/28/19 [History] PredniSONE [Deltasone] 20 mg PO DAILY 04/28/19 [History] Lidocaine 1 applic TP QID PRN 04/30/19 [History] Allergy/AdvReac Type Severity Reaction Status Date / Time Sulfa (Sulfonamide Allergy Unknown Unknown Verified 03/05/19 11:42 Antibiotics) cefdinir Allergy Redness of Verified 04/30/19 11:08 Skin Penicillins AdvReac Unknown increased Verified 04/30/19 10:48 heart rate ciprofloxacin [From Cipro] AdvReac increased Verified 04/30/19 11:13 heart rate ibrutinib [From Imbruvica] AdvReac See Verified 04/30/19 12:30 Comments - Meds/Allergy Pre-op Review Medications Reviewed: Yes Allergies Reviewed: Yes Beta Blockers on Current Med List: No Anesthesia Results - Labs 04/30/19 05:33 04/30/19 05:33 - Imaging EKG: report reviewed (SR Left Anterior Fascicular Block) Additional studies: 2015 ECHO EF 60% Anesthesia Exam O2 Sat O2 Sat by Pulse Oximetry 98 O2 Sat by Pulse Oximetry 99 O2 Sat by Pulse Oximetry 98 O2 Sat by Pulse Oximetry 98 O2 Sat by Pulse Oximetry 95 O2 Sat by Pulse Oximetry 95 Vital Signs Temp Pulse Resp BP Pulse Ox 98.2 F 80 18 124/54 99 04/28/19 09:17 04/28/19 09:17 04/28/19 09:17 04/28/19 09:17 04/28/19 09:17 Height: 5'6 Weight: 180 lbs NPO (# of Hours): MN Pain Scale: 0 - HEENT Pupil (Motor): Pupils equal, EOMI Oral Opening: Greater than 3 - COOK PRESSURE LOC: Oriented COOK PRESSURE Motor: Normal RUE, Normal LUE, Normal RLE, Normal LLE, Normal Face COOK PRESSURE Sensory: Normal: RUE, LUE, RLE, LLE, Face - Cardiac Rhythm: Regular Murmur: None JVD: No Carotid Bruit: No - Pulmonary Breath Sounds: bilateral Clear Respiratory Effort: Symmetrical Anesthesia Assess/Plan ASA Score: 3 (CLL Anemia) Level of consciousness: Cooperative, Oriented Anesthetic Plan: MAC Autologous Blood: No Monitoring Plan: Standard Monitors Recovery Plan: Other (Discussed MAC, agrees to proceed)
--- NOTE | 2019-04-30 14:03 | Anesthesia Evaluation Post Op ---
Date of Encounter: 04/30/19 Time of Encounter: 13:30 - Vital Signs Vital Signs: Vital Signs/O2 Sat/Glucose, Most Current Temp Pulse Resp BP Pulse Ox 04/30/19 13:09 98.3 F 72 16 126/67 100 04/30/19 10:50 100.0 F H 72 16 134/72 98 - Lungs Lungs: Clear Ascult./Percussion - Airway Airway: Non-obstructed - Cardiovascular Regular Rate - Mental Status Mental Status: Alert & Oriented, Answers Appropriately - Pain Pain Scale: 0 - Nausea Vomiting Nausea Vomiting: Not Present - Hydration Hydration: NPO - Discharge PostOp Status: Transfer Patient to floor
[2019-05-01] MEDS: Pantoprazole 40 MG VIAL IVP SCH ×2 (06:11→17:13)
[2019-05-01 06:47] LABS: BUN/Creatinine Ratio 27 (6-26); Blood Urea Nitrogen 19 mg/dL (8-23); Calcium 9.1 mg/dL (8.6-10.3); Carbon Dioxide 26 mEq/L (23-29); Chloride 99 mEq/L (98-107); Glucose 96 mg/dL (70-105); Osmolality,Calculated 278 (280-300); Potassium 4.4 mEq/L (3.5-5.1); Sodium 133 mEq/L (136-145); eGFR For African Americans > 60 (> 60); eGFR For Non-African Americans > 60 (> 60)
[2019-05-01 06:56] LABS: Hematocrit 28.5 % (35.3-44.9); Hemoglobin 7.8 g/dL (11.5-15.4); Mean Corpuscular HGB Conc 27.4 g/dL (31.6-35.5); Mean Corpuscular Hemoglobin 23.1 pg (28.0-33.3); Mean Corpuscular Volume 84.3 fL (83.0-100.0); Mean Platelet Volume 8.7 fL (9.4-12.4); Platelet Count 273 K/mcL (140-400); Red Blood Count 3.38 M/mcL (3.82-4.97); Red Cell Distribution Width 20.5 % (11.5-14.5)
[2019-05-01 07:51] LABS: White Blood Count 267.7 K/mcL (4.3-11.1)
[2019-05-01 08:23] LABS: Lymphocytes # 254.3 K/mcL (0.6-4.6); Monocytes # 5.4 K/mcL (0.0-1.3); Neutrophils # 5.4 K/mcL (1.6-8.9); Platelet Estimate Normal (Normal); Smudge Cells Present (Not Present)
[2019-05-01] MEDS: predniSONE 20 MG TABLET PO SCH (08:27)
[2019-05-01] MEDS: cefTRIAXone 2,000 MG in Water for inj. (sterile) 20 ML 20 ML IVP SCH (08:27)
--- NOTE | 2019-05-01 14:09 | Internal Med Progress Note ---
Hospitalist Progress Note - Encounter Date of Encounter: 05/01/19 Time of Encounter: 14:08 - Subjective Interval History: Patient was seen and examined at bedside-discuss lab results as well as results of EGD with the patient. No active bleeding from wound on left arm. Discussed with patient evaluation by Lissy hematology concerning anemia. Patient did agree to be evaluated however would like information sent to the [facility]. - Exam Vitals: Temp Pulse Resp BP Pulse Ox 98.7 F 71 18 115/65 96 05/01/19 12:12 05/01/19 12:12 05/01/19 12:12 05/01/19 12:12 05/01/19 12:12 Exam: GEN: NAD CVS: RRR. S1, S2, No m/r/g RESP: CTAB ABD: Soft, NT, ND, +BS EXT: No edema. 2+ DP. No rashes NEURO: Nonfocal - Assessment and Plan (1) CLL (chronic lymphocytic leukemia) Current Visit: No Status: Chronic Assessment and Plan: f/u with bridge attacher at [facility] (Dr. Franks). Please fax discharge and hospital details to Dr. Franks at discharge. Patient states she would allow hematology oncology to evaluate her concerning anemia (2) Anemia Current Visit: Yes Status: Acute Assessment and Plan: 2 units ordered in the ED on admission. Hgb down to 7. 0.8 this a.m. no need to transfuse today. + FOBT GI consult and underwent EGD -a single recently bleeding angiodysplastic lesion in the stomach. Treated with bipolar zhgkagt-[id number]-fycwu hiatal hernia (3) Asymptomatic bacteriuria Current Visit: Yes Status: Acute Assessment and Plan: Not treating initially but today she tells me she is having burning sensation. At first she thought it was due to recent labia procedure she had. Will start IV rocephin. (4) DVT prophylaxis Current Visit: Yes Status: Acute Assessment and Plan: scds (5) GI bleed Current Visit: Yes Status: Acute Assessment and Plan: Reported dark stools. + FOBT. GI consulted. IV PPI BID ordered. (6) UTI (urinary tract infection) Current Visit: Yes Status: Acute Assessment and Plan: Start Rocephin. f/u on cultures - Time Spent with Patient Total time spent is greater than 50% in coordination of care (as documented) at patient's floor/unit and/or counseling patient: Internal Medicine: Result - Labs CBC & Chem 7: 05/01/19 06:00 05/01/19 06:00 Labs: Short CBC 05/01/19 Range/Units 06:00 WBC 267.7 H* (4.3-11.1) K/mcL Hgb 7.8 L (11.5-15.4) g/dL Hct 28.5 L (35.3-44.9) % Plt Count 273 (140-400) K/mcL Neutrophils # 5.4 (1.6-8.9) K/mcL BMP 05/01/19 06:00 Sodium 133 L Potassium 4.4 Chloride 99 Carbon Dioxide 26 BUN 19 Creatinine 0.71 Glucose 96 Calcium 9.1 - ABG Interpretation ABG results: PT/INR, D-dimer PT 11.8 Seconds (9.4-12.1) 04/28/19 09:34 Consult Discharge Plan - Plan Referrals: Michelet Almeida Jr, MD [Primary Care Provider] - (2) Anemia Qualifiers: Anemia type: iron deficiency Iron deficiency anemia type: unspecified iron deficiency Qualified Code(s): D50.9 - Iron deficiency anemia, unspecified (5) GI bleed Qualifiers: GI bleed type/associated pathology: unspecified gastrointestinal hemorrhage type Qualified Code(s): K92.2 - Gastrointestinal hemorrhage, unspecified (6) UTI (urinary tract infection) Qualifiers: Urinary tract infection type: site unspecified Hematuria presence: without hematuria Qualified Code(s): N39.0 - Urinary tract infection, site not specified
[2019-05-01] MEDS: Pramoxine/Zinc acetate Lotion 177 APPL/177 ML BOTTLE TP SCH ×2 (17:13→20:32)
[2019-05-02] MEDS: Pantoprazole 40 MG VIAL IVP SCH ×2 (05:37→17:40)
[2019-05-02 06:27] LABS: Hematocrit 28.4 % (35.3-44.9); Hemoglobin 7.9 g/dL (11.5-15.4); Mean Corpuscular HGB Conc 27.8 g/dL (31.6-35.5); Mean Corpuscular Hemoglobin 23.4 pg (28.0-33.3); Mean Corpuscular Volume 84.3 fL (83.0-100.0); Platelet Count 256 K/mcL (140-400); Red Blood Count 3.37 M/mcL (3.82-4.97); Red Cell Distribution Width 20.4 % (11.5-14.5)
[2019-05-02 06:39] LABS: BUN/Creatinine Ratio 28 (6-26); Blood Urea Nitrogen 18 mg/dL (8-23); Carbon Dioxide 28 mEq/L (23-29); Chloride 100 mEq/L (98-107); Glucose 89 mg/dL (70-105); Osmolality,Calculated 281 (280-300); Potassium 4.4 mEq/L (3.5-5.1); Sodium 135 mEq/L (136-145); eGFR For African Americans > 60 (> 60); eGFR For Non-African Americans > 60 (> 60)
[2019-05-02 06:48] LABS: White Blood Count 229.5 K/mcL (4.3-11.1)
[2019-05-02 07:01] LABS: Lymphocytes # 174.4 K/mcL (0.6-4.6); Platelet Estimate Normal (Normal)
[2019-05-02 07:02] LABS: Smudge Cells Present (Not Present)
--- NOTE | 2019-05-02 08:27 | Internal Med Progress Note ---
Hospitalist Progress Note - Encounter Date of Encounter: 05/02/19 Time of Encounter: 15:00 - Subjective Interval History: No acute events overnight - Exam Vitals: Temp Pulse Resp BP Pulse Ox 97.8 F 66 18 135/64 98 05/02/19 07:34 05/02/19 07:34 05/02/19 07:34 05/02/19 07:34 05/02/19 07:34 Exam: GEN: NAD CVS: RRR. S1, S2, No m/r/g RESP: CTAB ABD: Soft, NT, ND, +BS EXT: No edema. 2+ DP. No rashes NEURO: Nonfocal - Assessment and Plan (1) CLL (chronic lymphocytic leukemia) Current Visit: Yes Status: Chronic Assessment and Plan: Has chronic CLL with fatigue and leukocytosis. Oncology consulted and recs pending Continue supportive care (2) Anemia Current Visit: Yes Status: Acute Assessment and Plan: Transfused 2 units PRBC total. GI consulted and underwent EGD. A single recently bleeding angiodysplastic lesion in the stomach. Treated with bipolar mbhggnq-srfaqornz-pukiz hiatal hernia Hemoglobin stable (3) Asymptomatic bacteriuria Current Visit: Yes Status: Acute Assessment and Plan: Stable. Completed course of rocephin (4) GI bleed Current Visit: Yes Status: Acute Assessment and Plan: Reported dark stools. + FOBT. GI consulted. IV PPI BID ordered. s/p endoscopy with angiodysplastic lesion (5) UTI (urinary tract infection) Current Visit: Yes Status: Acute Assessment and Plan: Start Rocephin. f/u on cultures (6) DVT prophylaxis Current Visit: Yes Status: Acute Assessment and Plan: scds - Time Spent with Patient Total time spent is greater than 50% in coordination of care (as documented) at patient's floor/unit and/or counseling patient: Internal Medicine: Result - Labs CBC & Chem 7: 05/02/19 05:31 05/02/19 05:31 Labs: Short CBC 05/02/19 Range/Units 05:31 WBC 229.5 H* (4.3-11.1) K/mcL Hgb 7.9 L (11.5-15.4) g/dL Hct 28.4 L (35.3-44.9) % Plt Count 256 (140-400) K/mcL Neutrophils # 23.0 H (1.6-8.9) K/mcL BMP 05/02/19 05:31 Sodium 135 L Potassium 4.4 Chloride 100 Carbon Dioxide 28 BUN 18 Creatinine 0.64 Glucose 89 Calcium 9.0 - ABG Interpretation ABG results: PT/INR, D-dimer PT 11.8 Seconds (9.4-12.1) 04/28/19 09:34 Consult Discharge Plan - Plan Referrals: Michelet Almeida Jr, MD [Primary Care Provider] - (2) Anemia Qualifiers: Anemia type: iron deficiency Iron deficiency anemia type: unspecified iron deficiency Qualified Code(s): D50.9 - Iron deficiency anemia, unspecified (4) GI bleed Qualifiers: GI bleed type/associated pathology: unspecified gastrointestinal hemorrhage type Qualified Code(s): K92.2 - Gastrointestinal hemorrhage, unspecified (5) UTI (urinary tract infection) Qualifiers: Urinary tract infection type: site unspecified Hematuria presence: without hematuria Qualified Code(s): N39.0 - Urinary tract infection, site not specified
[2019-05-02] MEDS: cefTRIAXone 2,000 MG in Water for inj. (sterile) 20 ML 20 ML IVP SCH (08:31)
[2019-05-02] MEDS: Pramoxine/Zinc acetate Lotion 177 APPL/177 ML BOTTLE TP SCH ×3 (08:32→23:42)
[2019-05-02] MEDS: predniSONE 20 MG TABLET PO SCH (08:32)
--- NOTE | 2019-05-02 18:12 | Oncology Inp Consult Note ---
<Ansley Lockett - Last Filed: 05/02/19 18:32> Date of Encounter: 05/02/19 Time of Encounter: 14:50 Assessment and Plan (1) CLL (chronic lymphocytic leukemia) Status: Chronic Assessment and plan: CLL (dx in 2012) Follows with Dr. Huang at [facility]. Last received treatment with ibrutinib (03/14/19-04/03/19?) Patient was scheduled to receive shipment of ibrutinib on 03/14/19. Noted lesion to vulva, perineal and pelvic edema, lesion to left forearm and right shoulder while taking ibrutinib. 3 biopsies taken at [facility] (dermatology) 04/17/19. Ibrutinib was NOT resumed upon discharge from [facility]. Plan: Follow up with Dr. Huang at [facility] after discharge. (2) Anemia Status: Acute Assessment and plan: Hgb 6.6 upon admission. Received 2 units pRBC's. Hgb 7.9. Plan: Monitor CBC daily. Transfusion parameters: 1 unit pRBC if hgb < 8, if symptomatic Qualifiers: Anemia type: iron deficiency Iron deficiency anemia type: unspecified iron deficiency Qualified Code(s): D50.9 - Iron deficiency anemia, unspecified - Data of Consult Requesting Physician: Suzy Guadarrama Primary Care Provider: Michelet Almeida Jr, MD - Consult Narrative Reason for consult: CLL History of present illness: Miguelina, a 73 yo female with known CLL, presented to the ED for anemia. She receives treatment for CLL at [facility] with Dr. Huang. She notes having a biopsy of left forearm with uncontrolled bleeding. Her Hgb upon presentation was 6.6. She received 2 units pRBC's upon admission. Miguelina notes that she had difficulty with her most recent chemotherapy and stopped it on 04/03/19 due to complications, including skin changes (lesions on her vulva). She notes that she also had black stools, was feeling lightheaded and dizzy, and has weakness and worsening fatigue. Treatment history: 1. FCR for 3 cycles for steroid refractory autoimmune hemolytic anemia (Jul 2013-Oct 2013) 2. Chronic tapering of steroids for autoimmune hemolytic anemia. 3. Ibrutinib 420 mg PO daily (03/14/19?-04/03/19) Medical history: Anemia, arthritis, CLL (dx 2013), GERD, eczema Review of systems: + fatigue, generalized weakness + skin changes: vulva + black stools. + easy bruising and bleeding. Denies nausea, vomiting, diarrhea, constipation, or abdominal pain. Denies headache or vision changes. Social history: . Lives in [place], [place]. Has 4 children that check in with her daily. Denies tobacco use. Denies alcohol use. Denies illicit drug use. Past Med Surg Social Fam HX - Past Medical History Medical history: cancer, DVT Additional medical history: Lukemia (CLL) Psychiatric history: no psych history - Past Surgical History Surgical History: appendectomy, , hysterectomy - Social History Smoking Status: Never smoker Smokeless Tobacco Status: No Alcohol use: none Drug use: none Medications and Allergies Hydrocortisone/Pramoxine [Hydrocort-Pramoxine 2.5%-1% cm] 1 applic TP AD 04/28/19 [History] Omeprazole [PriLOSEC] 20 mg PO DAILY 04/28/19 [History] PredniSONE [Deltasone] 20 mg PO DAILY 04/28/19 [History] Lidocaine 1 applic TP QID PRN 04/30/19 [History] Allergy/AdvReac Type Severity Reaction Status Date / Time Sulfa (Sulfonamide Allergy Unknown Unknown Verified 03/05/19 11:42 Antibiotics) cefdinir Allergy Redness of Verified 04/30/19 11:08 Skin Penicillins AdvReac Unknown increased Verified 04/30/19 10:48 heart rate ciprofloxacin [From Cipro] AdvReac increased Verified 04/30/19 11:13 heart rate ibrutinib [From Imbruvica] AdvReac See Verified 04/30/19 12:30 Comments Oncology - Exam - Additional findings Additional findings: General: Alert and oriented, fatigued-appearing. Pale. Mental Status: Affect appropriate for circumstances Skin: No rashes or petechiae. Scattered bruising. Left arm: coban. Lungs: Clear to auscultation Cardiovascular: Regular rate and rhythm. No gallops, murmurs, or rubs. Abdomen: Soft, nontender; Left and right inguinal firm masses noted. R Extremities: No edema. No calf swelling or tenderness. No joint deformity. Neurologic: Alert, cranial nerves II-XII intact; no focal weakness or sensory abnormalities. Oncology Inpatient Results Labs: Laboratory Results - last 24 hr 05/02/19 05/02/19 05:31 05:31 WBC 229.5 H* RBC 3.37 L Hgb 7.9 L Hct 28.4 L MCV 84.3 MCH 23.4 L MCHC 27.8 L RDW 20.4 H Plt Count 256 MPV 9.0 L Seg Neutrophils % 10.0 Lymphocytes % 76.0 Blast Cells % 14.0 H Neutrophils # 23.0 H Lymphocytes # 174.4 H Smudge Cells Present A Platelet Estimate Normal Sodium 135 L Potassium 4.4 Chloride 100 Carbon Dioxide 28 BUN 18 Creatinine 0.64 Est GFR ( Amer) > 60 Est GFR (Non-Af Amer) > 60 BUN/Creatinine Ratio 28 H Glucose 89 Calculated Osmolality 281 Calcium 9.0 Consult Discharge Plan - Plan Referrals: Michelet Almeida Jr, MD [Primary Care Provider] - Inpatient Charges Provider: Dr. Steve Howard <Kelly Howard - Last Filed: 05/03/19 09:40> Date of Encounter: 05/03/19 - Data of Consult Requesting Physician: Suzy Guadarrama Primary Care Provider: Michelet Almeida Jr, MD - Attending Attestation Patient has bilateralt abdominal adenopathy, anemia requiring transfusion, symptomatic with dizziness hemoglobin has improved since admission. Skin biopsy and while more biopsies from [facility] reviewed. Skin biopsy showing lymphocytosis. Patient reports that she had received courses of antibiotics while she was hospitalized. Upon discharge she is to follow-up at [facility] with her oncologist with whom (Dr Huang) pt's plan of care was communicated. Inpatient Charges Provider: Dr. Steve Howard Consult - Inpatient: [id number]
[2019-05-02] MEDS ORDERED: 0.9 % Sodium Chloride 250 ML ONE (21:48)
[2019-05-02] MEDS: Artificial Tears SOLN 15 ML BOTTLE BOTH EYES PRN (23:43)
[2019-05-02] MEDS: Acetaminophen 325 MG TABLET PO PRN (23:44)
[2019-05-03 04:38] LABS: Hematocrit 32.7 % (35.3-44.9); Hemoglobin 9.3 g/dL (11.5-15.4); Mean Corpuscular HGB Conc 28.4 g/dL (31.6-35.5); Mean Corpuscular Hemoglobin 24.3 pg (28.0-33.3); Mean Corpuscular Volume 85.4 fL (83.0-100.0); Mean Platelet Volume 8.9 fL (9.4-12.4); Platelet Count 260 K/mcL (140-400); Red Blood Count 3.83 M/mcL (3.82-4.97); Red Cell Distribution Width 20.1 % (11.5-14.5)
[2019-05-03 04:56] LABS: BUN/Creatinine Ratio 23 (6-26); Blood Urea Nitrogen 17 mg/dL (8-23); Calcium 8.8 mg/dL (8.6-10.3); Carbon Dioxide 27 mEq/L (23-29); Chloride 100 mEq/L (98-107); Glucose 87 mg/dL (70-105); Osmolality,Calculated 279 (280-300); Phosphorous 3.3 mg/dL (2.7-4.5); Potassium 4.1 mEq/L (3.5-5.1); Sodium 134 mEq/L (136-145); eGFR For African Americans > 60 (> 60); eGFR For Non-African Americans > 60 (> 60)
[2019-05-03 05:14] LABS: Lymphocytes # 190.2 K/mcL (0.6-4.6); Neutrophils # 46.3 K/mcL (1.6-8.9)
[2019-05-03 05:15] LABS: Anisocytosis 2+ (Not Present); Platelet Estimate Normal (Normal); Smudge Cells Present (Not Present)
[2019-05-03] MEDS: predniSONE 20 MG TABLET PO SCH (08:01)
[2019-05-03] MEDS: cefTRIAXone 2,000 MG in Water for inj. (sterile) 20 ML 20 ML IVP SCH (08:01)
[2019-05-03] MEDS: Pramoxine/Zinc acetate Lotion 177 APPL/177 ML BOTTLE TP SCH ×3 (08:02→21:17)
[2019-05-03] MEDS: Acetaminophen 325 MG TABLET PO PRN ×2 (10:24→21:17)
--- NOTE | 2019-05-03 14:57 | Internal Med Progress Note ---
Hospitalist Progress Note - Encounter Date of Encounter: 05/03/19 Time of Encounter: 14:00 - Subjective Interval History: Transfused one unit of PRBC overnight - Exam Vitals: Temp Pulse Resp BP Pulse Ox 98 F 69 18 111/66 96 05/03/19 12:07 05/03/19 12:07 05/03/19 12:07 05/03/19 12:07 05/03/19 12:07 Exam: GEN: NAD CVS: RRR. S1, S2, No m/r/g RESP: CTAB ABD: Soft, NT, ND, +BS EXT: No edema. 2+ DP. No rashes NEURO: Nonfocal - Assessment and Plan (1) CLL (chronic lymphocytic leukemia) Current Visit: Yes Status: Chronic Assessment and Plan: Has chronic CLL with fatigue and leukocytosis. Oncology consulted and recs pending Continue supportive care Was transfused one unit of PRBC overnight. Spiked a fever this am and was still lethargic. May be secondary to CLL vs infection Cotninue ceftriaxone, obtain CXr to r/o pneumonia. Will monitor overnight Will give one bolus of normal saline 500cc (2) Anemia Current Visit: Yes Status: Acute Assessment and Plan: Transfused 2 units PRBC total. GI consulted and underwent EGD. A single recently bleeding angiodysplastic lesion in the stomach. Treated with bipolar [id number]-[id number] hiatal hernia Hemoglobin stable (3) Asymptomatic bacteriuria Current Visit: Yes Status: Acute Assessment and Plan: Stable. Completed course of rocephin (4) GI bleed Current Visit: Yes Status: Acute Assessment and Plan: Reported dark stools. + FOBT. GI consulted. IV PPI BID ordered. s/p endoscopy with angiodysplastic lesion (5) UTI (urinary tract infection) Current Visit: Yes Status: Acute Assessment and Plan: Start Rocephin. f/u on cultures (6) DVT prophylaxis Current Visit: Yes Status: Acute Assessment and Plan: scds - Time Spent with Patient Total time spent is greater than 50% in coordination of care (as documented) at patient's floor/unit and/or counseling patient: Internal Medicine: Result - Labs CBC & Chem 7: 05/03/19 04:02 05/03/19 04:02 Labs: Short CBC 05/03/19 Range/Units 04:02 WBC 257.0 H* (4.3-11.1) K/mcL Hgb 9.3 L (11.5-15.4) g/dL Hct 32.7 L (35.3-44.9) % Plt Count 260 (140-400) K/mcL Neutrophils # 46.3 H (1.6-8.9) K/mcL BMP 05/03/19 04:02 Sodium 134 L Potassium 4.1 Chloride 100 Carbon Dioxide 27 BUN 17 Creatinine 0.75 Glucose 87 Calcium 8.8 - ABG Interpretation ABG results: PT/INR, D-dimer PT 11.8 Seconds (9.4-12.1) 04/28/19 09:34 - Impressions Impressions Chest X-Ray 05/03/19 10:31 IMPRESSION: Stable chest. No new acute cardiopulmonary findings. D/ / Sheeba Tim MD / Sheeba Tim MD Interpreting Provider: Sheeba Tim MD Consult Discharge Plan - Plan Referrals: Michelet Almeida Jr, MD [Primary Care Provider] - (2) Anemia Qualifiers: Anemia type: iron deficiency Iron deficiency anemia type: unspecified iron deficiency Qualified Code(s): D50.9 - Iron deficiency anemia, unspecified (4) GI bleed Qualifiers: GI bleed type/associated pathology: unspecified gastrointestinal hemorrhage type Qualified Code(s): K92.2 - Gastrointestinal hemorrhage, unspecified (5) UTI (urinary tract infection) Qualifiers: Urinary tract infection type: site unspecified Hematuria presence: without hematuria Qualified Code(s): N39.0 - Urinary tract infection, site not specified
[2019-05-03] MEDS: 0.9 % Sodium Chloride 500 ML IVC ONE ×2 (15:21→15:31)
--- NOTE | 2019-05-03 16:29 | Oncology Inp Progress Note ---
<Anslye Lockett - Last Filed: 05/03/19 16:26> Date of Encounter: 05/03/19 Time of Encounter: 13:35 (1) CLL (chronic lymphocytic leukemia) Current Visit: Yes Status: Chronic Assessment and plan: CLL (dx in 2012) Follows with Dr. Huang at [facility]. Last received treatment with ibrutinib (03/14/19-04/03/19?) Patient was scheduled to receive shipment of ibrutinib on 03/14/19. Noted lesion to vulva, perineal and pelvic edema, lesion to left forearm and right shoulder while taking ibrutinib. 3 biopsies taken at [facility] (dermatology) 04/17/19. Ibrutinib was NOT resumed upon discharge from [facility]. Plan: Follow up with Dr. Huang at [facility] after discharge. Dr. Huang's office working on scheduling follow-up. (2) Anemia Current Visit: Yes Status: Acute Assessment and plan: Hgb 6.6 upon admission. Received 3 units pRBC's. Hgb 9.3 today, trending upwards. Plan: Monitor CBC daily. Transfusion parameters: 1 unit pRBC if hgb < 8, if symptomatic Qualifiers: Anemia type: iron deficiency Iron deficiency anemia type: unspecified iron deficiency Qualified Code(s): D50.9 - Iron deficiency anemia, unspecified Oncology: Subj Interval history: Ms. Vega is sleeping upon today's assessment. She appears flushed and diaphoretic. Respirations easy. Oncology: Obj Data - Labs CBC & Chem 7: 05/03/19 04:02 05/03/19 04:02 Consult Discharge Plan - Plan Referrals: Michelet Almeida Jr, MD [Primary Care Provider] - Inpatient Charges Provider: Dr. Steve Howard <Kelly Howard - Last Filed: 05/04/19 07:50> Date of Encounter: 05/04/19 Oncology: Subj Interval history: I examined this patient and my medical decision-making was reviewed with the Advanced Practice Nurse. I agree with the documented findings, disposition and treatment plan as described except to the extent set forth below. - Constitutional General appearance: no acute distress - Head Head exam: Present: atraumatic, normal inspection - Eye Eye exam: Present: sclera anicteric - Respiratory Respiratory exam: Present: CTAB - GI/Abdominal GI/Abdominal exam: Present: normal bowel sounds, soft Additional comments: palpable adenopathy - Neurological Exam Neurological exam: Present: CN II-XII intact, oriented X3 Oncology: Obj Data - Labs CBC & Chem 7: 05/03/19 04:02 05/03/19 04:02
--- NOTE | 2019-05-04 08:19 | Discharge Summary ---
Orders not resulted at time of discharge: Pending orders 05/01/19 15:49 Haptoglobin Routine 05/04/19 04:00 Basic Metabolic Panel AM 0400 CBC [Complete Blood Count] [HEME] AM 0400 Magnesium AM 0400 Phosphorous AM 0400 05/05/19 04:00 Basic Metabolic Panel AM 0400 CBC [Complete Blood Count] [HEME] AM 0400 Magnesium AM 0400 Phosphorous AM 0400 05/06/19 04:00 Basic Metabolic Panel AM 0400 CBC [Complete Blood Count] [HEME] AM 0400 Magnesium AM 0400 Phosphorous AM 0400 05/07/19 04:00 Basic Metabolic Panel AM 0400 CBC [Complete Blood Count] [HEME] AM 0400 Magnesium AM 0400 Phosphorous AM 0400 05/08/19 04:00 Basic Metabolic Panel AM 0400 CBC [Complete Blood Count] [HEME] AM 0400 Magnesium AM 0400 Phosphorous AM 0400 Date of Encounter: 05/04/19 - Discharge Diagnosis (1) CLL (chronic lymphocytic leukemia) Status: Chronic (2) Anemia Status: Acute Qualifiers: Anemia type: iron deficiency Iron deficiency anemia type: unspecified iron deficiency Qualified Code(s): D50.9 - Iron deficiency anemia, unspecified (3) Asymptomatic bacteriuria Status: Acute (4) GI bleed Status: Acute Qualifiers: GI bleed type/associated pathology: unspecified gastrointestinal hemorrhage type Qualified Code(s): K92.2 - Gastrointestinal hemorrhage, unspecified (5) UTI (urinary tract infection) Status: Acute Qualifiers: Urinary tract infection type: site unspecified Hematuria presence: without hematuria Qualified Code(s): N39.0 - Urinary tract infection, site not specified (6) DVT prophylaxis Status: Acute Hospital course: Ms. Vega is a 73 year old female - Time Spent with Patient Total time spent providing and/or coordinating discharge services: - Discharge Medications Prescriptions: New Omeprazole [PriLOSEC] 40 mg PO BIDAC #60 capsule.dr Artificial Tears SOLN [Akwa Tears] 1 drop BOTH EYES QID PRN #1 bottle PRN Reason: Allergy Symptoms Continued PredniSONE [Deltasone] 20 mg PO DAILY Omeprazole [PriLOSEC] 20 mg PO DAILY Hydrocortisone/Pramoxine [Hydrocort-Pramoxine 2.5%-1% cm] 1 applic TP AD Lidocaine 1 applic TP QID PRN PRN Reason: Pain Home Medications: Hydrocortisone/Pramoxine [Hydrocort-Pramoxine 2.5%-1% cm] 1 applic TP AD 04/28/19 [History] Omeprazole [PriLOSEC] 20 mg PO DAILY 04/28/19 [History] PredniSONE [Deltasone] 20 mg PO DAILY 04/28/19 [History] Lidocaine 1 applic TP QID PRN 04/30/19 [History] Artificial Tears SOLN [Akwa Tears] 1 drop BOTH EYES QID PRN #1 bottle 05/04/19 [Rx] Omeprazole [PriLOSEC] 40 mg PO BIDAC #60 capsule. 05/04/19 [Rx] Allergies/Adverse Reactions: Allergy/AdvReac Type Severity Reaction Status Date / Time Sulfa (Sulfonamide Allergy Unknown Unknown Verified 03/05/19 11:42 Antibiotics) cefdinir Allergy Redness of Verified 04/30/19 11:08 Skin Penicillins AdvReac Unknown increased Verified 04/30/19 10:48 heart rate ciprofloxacin [From Cipro] AdvReac increased Verified 04/30/19 11:13 heart rate ibrutinib [From Imbruvica] AdvReac See Verified 04/30/19 12:30 Comments Date of admission: 05/01/19 20:59 Primary care physician: Michelet Almeida Jr, MD Consults: 04/29/19 11:20 Consult to Gastroenterology [CONS] Routine Consulting Provider: [facility] [place] Reason for Consult: acute anemia, positive stool occult; Dr. Guadarrama to call; Call Completed: No 04/29/19 19:48 Consult to Wound Care [CONS] Routine Reason for Consult: please see gluteal cleft and labia wounds - biopsy sites and reaction from chemo; patient has difficulty healing wounds; Time Notified: 19:48 Call Completed: Yes 05/01/19 15:46 Consult to Oncology [CONS] Routine Consulting Provider: [facility] [place] Reason for Consult: CLL anemia Time Notified: 15:49 Call Completed: Yes 05/03/19 11:30 Consult to Physical Therapy [CONS] Routine Comment: Evaluate, develop and implement POC Reason for Consult: weakness Does patient have active BEDREST order?: No Is patient medically & hemodynamically stable?: Yes Patient assessed for mobility or mobilized this visit?: No - Constitutional Vitals: Temp Pulse Resp BP Pulse Ox 98.2 F 62 16 109/64 98 05/04/19 08:09 05/04/19 08:09 05/04/19 08:09 05/04/19 08:09 05/04/19 08:09 - Patient Status Condition: Serious - Discharge Instructions Follow Up With: Michelet Almeida Jr, MD [Primary Care Provider] -
--- NOTE | 2019-05-04 08:28 | Physician Discharge Referral ---
Home Health/Hosp Referral Info Transfer to: Home Health - Diagnosis (1) CLL (chronic lymphocytic leukemia) Priority: Primary Status: Chronic (2) Anemia Priority: Primary Status: Acute (3) Asymptomatic bacteriuria Priority: Primary Status: Acute (4) GI bleed Priority: Primary Status: Acute (5) UTI (urinary tract infection) Priority: Primary Status: Acute (6) DVT prophylaxis Priority: Primary Status: Acute - Respiratory Orders Smoking Cessation: Smoking cessation has been advised. For more information, call the [place] Tobacco Quit Line at 0-921-KBUX-NOW. - Diet/Nutrition Diet/Nutrition Orders: Cardiac - Activity Activity Orders: Ambulate - Services Needed Following services are medically necessary services: Nursing, Home Health Aide, Physical Therapy - Transfer Medications Prescriptions: Artificial Tears SOLN [Akwa Tears] 1 drop BOTH EYES QID PRN #1 bottle PRN Reason: Allergy Symptoms Omeprazole [PriLOSEC] 40 mg PO BIDAC #60 capsule. Home Medications: Hydrocortisone/Pramoxine [Hydrocort-Pramoxine 2.5%-1% cm] 1 applic TP AD 04/28/19 [History] Omeprazole [PriLOSEC] 20 mg PO DAILY 04/28/19 [History] PredniSONE [Deltasone] 20 mg PO DAILY 04/28/19 [History] Lidocaine 1 applic TP QID PRN 04/30/19 [History] Artificial Tears SOLN [Akwa Tears] 1 drop BOTH EYES QID PRN #1 bottle 05/04/19 [Rx] Omeprazole [PriLOSEC] 40 mg PO BIDAC #60 capsule. 05/04/19 [Rx] Allergies/Adverse Reactions: Allergy/AdvReac Type Severity Reaction Status Date / Time Sulfa (Sulfonamide Allergy Unknown Unknown Verified 03/05/19 11:42 Antibiotics) cefdinir Allergy Redness of Verified 04/30/19 11:08 Skin Penicillins AdvReac Unknown increased Verified 04/30/19 10:48 heart rate ciprofloxacin [From Cipro] AdvReac increased Verified 04/30/19 11:13 heart rate ibrutinib [From Imbruvica] AdvReac See Verified 04/30/19 12:30 Comments Certification: Further, I certify that my clinical findings support that this patient is homebound (i.e. absences from home require considerable and taxing effort and are for medical reasons or scientologist services or infrequently or short duration when for other reasons) because: Homebound Reason: Patient requires assistance of a person or device to safely leave home Attestation: My signature below is to certify that this patient is under my care and that I, or nurse practitioner, or a physician's contact center assistant working with me, has a [id number] encounter with this patient.
[2019-05-04 09:10] LABS: Hematocrit 29.7 % (35.3-44.9); Hemoglobin 8.5 g/dL (11.5-15.4); Mean Corpuscular HGB Conc 28.6 g/dL (31.6-35.5); Mean Corpuscular Hemoglobin 24.4 pg (28.0-33.3); Mean Corpuscular Volume 85.3 fL (83.0-100.0); Mean Platelet Volume 8.8 fL (9.4-12.4); Platelet Count 251 K/mcL (140-400); Red Blood Count 3.48 M/mcL (3.82-4.97); Red Cell Distribution Width 20.1 % (11.5-14.5)
[2019-05-04 09:15] LABS: White Blood Count 222.9 K/mcL (4.3-11.1)
[2019-05-04 09:40] LABS: BUN/Creatinine Ratio 26 (6-26); Blood Urea Nitrogen 16 mg/dL (8-23); Calcium 8.7 mg/dL (8.6-10.3); Carbon Dioxide 26 mEq/L (23-29); Chloride 100 mEq/L (98-107); Glucose 100 mg/dL (70-105); Magnesium 1.9 mg/dL (1.6-2.6); Osmolality,Calculated 277 (280-300); Potassium 5.4 mEq/L (3.5-5.1); Sodium 133 mEq/L (136-145); eGFR For African Americans > 60 (> 60); eGFR For Non-African Americans > 60 (> 60)
[2019-05-04 09:55] LABS: Neutrophils # 8.9 K/mcL (1.6-8.9)
[2019-05-04 09:56] LABS: Anisocytosis 1+ (Not Present); Smudge Cells Present (Not Present)
[2019-05-04 09:58] LABS: Polychromasia 1+ (Not Present)
[2019-05-04] MEDS: predniSONE 20 MG TABLET PO SCH (09:58)
[2019-05-04] MEDS: cefTRIAXone 2,000 MG in Water for inj. (sterile) 20 ML 20 ML IVP SCH (09:58)
[2019-05-04 09:59] LABS: Basophilic Stippling 1+ (Not Present); Platelet Estimate Normal (Normal); Stomatocytes 1+ (Not Present)
[2019-05-04] MEDS: Artificial Tears SOLN 15 ML BOTTLE BOTH EYES PRN (10:08)
[2019-05-04] MEDS: Pramoxine/Zinc acetate Lotion 177 APPL/177 ML BOTTLE TP SCH ×3 (11:57→22:12)
[2019-05-04] MEDS: Acetaminophen 325 MG TABLET PO PRN (14:31)
--- NOTE | 2019-05-04 14:42 | Oncology Inp Progress Note ---
Date of Encounter: 05/04/19 Time of Encounter: 11:15 (1) CLL (chronic lymphocytic leukemia) Current Visit: Yes Status: Chronic Assessment and plan: CLL (dx in 2012) Follows with Dr. Huang at [facility]. Last received treatment with ibrutinib (03/14/19-04/03/19?) Patient was scheduled to receive shipment of ibrutinib on 03/14/19. Noted lesion to vulva, perineal and pelvic edema, lesion to left forearm and right shoulder while taking ibrutinib. 3 biopsies taken at [facility] (dermatology) 04/17/19. Ibrutinib was NOT resumed upon discharge from [facility]. Plan: Follow up with Dr. Huang at [facility] on May 29, 2019. Patient has appointment reminder at bedside. (2) Anemia Current Visit: Yes Status: Acute Assessment and plan: Hgb 6.6 upon admission. Received 3 units pRBC's. Hgb 8.5 today Denies symptoms. Notes improvement in fatigue and feeling dizzy. Plan: Monitor CBC daily. Transfusion parameters: 1 unit pRBC if hgb < 8, if symptomatic Qualifiers: Anemia type: iron deficiency Iron deficiency anemia type: unspecified iron deficiency Qualified Code(s): D50.9 - Iron deficiency anemia, unspecified Oncology: Subj Interval history: Ms. Vega is feeling better today. She states that she is getting ready for discharge home. Her follow-up with Dr. Huang at [facility] is already scheduled for May 29, 2019. She denies questions or concerns at this time. - Constitutional General appearance: cooperative, no acute distress - Respiratory Respiratory exam: Present: decreased breath sounds. Absent: rhonchi, wheezes - GI/Abdominal GI/Abdominal exam: Present: mass Additional comments: palpable, firm L pelvic mass and R pelvic mass - Neurological Exam Neurological exam: Present: oriented X3. Absent: facial droop, speech deficit - Psychiatric Psychiatric exam: Present: normal affect, normal mood Oncology: Obj Data - Labs CBC & Chem 7: 05/04/19 08:51 05/04/19 08:51 Consult Discharge Plan - Plan Instructions: Omeprazole (By mouth), Eye Lubricant (Into the eye) Referrals: Vivian Huang MD [Other] - 05/29/19 1:20 pm (Please follow-up with Dr. Huang on May 29 at 01:20) Michelet Almeida Jr, MD [Primary Care Provider] - 05/11/19 2:30 pm (Please follow-up as scheduled with Dr. Almeida) Prescriptions: Artificial Tears SOLN [Akwa Tears] 1 drop BOTH EYES QID PRN #1 bottle PRN Reason: Allergy Symptoms Omeprazole [PriLOSEC] 40 mg PO BIDAC #60 capsule. Inpatient Charges Provider: Dr. Jm Ngo
--- NOTE | 2019-05-04 15:55 | Internal Med Progress Note ---
Hospitalist Progress Note - Encounter Date of Encounter: 05/04/19 Time of Encounter: 15:00 - Subjective Interval History: No acute events overnight - Exam Vitals: Temp Pulse Resp BP Pulse Ox 98.1 F 71 16 119/69 98 05/04/19 11:46 05/04/19 11:46 05/04/19 11:46 05/04/19 11:46 05/04/19 11:46 Exam: GEN: NAD CVS: RRR. S1, S2, No m/r/g RESP: CTAB ABD: Soft, NT, ND, +BS EXT: No edema. 2+ DP. No rashes NEURO: Nonfocal - Assessment and Plan (1) Chest pain Current Visit: Yes Status: Acute Assessment and Plan: Patient complained of chest pain today prior to discharge Troponins elevated at 0.07. No baseline to compare with. EKG showed no acute ischemic changes Will trend troponins and plan for stress test in am (2) CLL (chronic lymphocytic leukemia) Current Visit: Yes Status: Chronic Assessment and Plan: Has chronic CLL with fatigue and leukocytosis. Oncology consulted and recs pending Continue supportive care Was transfused one unit of PRBC overnight. Spiked a fever this am and was still lethargic. May be secondary to CLL vs infection Cotninue ceftriaxone, obtain CXr to r/o pneumonia. Will monitor overnight Will give one bolus of normal saline 500cc (3) Anemia Current Visit: Yes Status: Acute Assessment and Plan: Transfused 2 units PRBC total. GI consulted and underwent EGD. A single recently bleeding angiodysplastic lesion in the stomach. Treated with bipolar oirbwdr-gxvehrqgx-yczkm hiatal hernia Hemoglobin stable (4) Asymptomatic bacteriuria Current Visit: Yes Status: Acute Assessment and Plan: Stable. Completed course of rocephin (5) GI bleed Current Visit: Yes Status: Acute Assessment and Plan: Reported dark stools. + FOBT. GI consulted. IV PPI BID ordered. s/p endoscopy with angiodysplastic lesion (6) UTI (urinary tract infection) Current Visit: Yes Status: Acute Assessment and Plan: Start Rocephin. f/u on cultures (7) DVT prophylaxis Current Visit: Yes Status: Acute Assessment and Plan: scds - Time Spent with Patient Total time spent is greater than 50% in coordination of care (as documented) at patient's floor/unit and/or counseling patient: Internal Medicine: Result - Labs CBC & Chem 7: 05/04/19 08:51 05/04/19 08:51 Labs: Short CBC 05/04/19 Range/Units 08:51 WBC 222.9 H* (4.3-11.1) K/mcL Hgb 8.5 L (11.5-15.4) g/dL Hct 29.7 L (35.3-44.9) % Plt Count 251 (140-400) K/mcL Neutrophils # 8.9 (1.6-8.9) K/mcL BMP 05/04/19 08:51 Sodium 133 L Potassium 5.4 H Chloride 100 Carbon Dioxide 26 BUN 16 Creatinine 0.61 Glucose 100 Calcium 8.7 Cardiac Enzymes 05/04/19 Range/Units 14:38 Troponin I 0.07 H* (< 0.04) ng/mL - ABG Interpretation ABG results: PT/INR, D-dimer PT 11.8 Seconds (9.4-12.1) 04/28/19 09:34 - Impressions Impressions Chest/Abdomen X-ray 05/04/19 14:54 IMPRESSION: Nonspecific bowel gas pattern. No evidence for obstruction or significant ileus. D/ / Tio Maritnez MD / Tio Martinez MD Interpreting Provider: Tio Martinez MD Consult Discharge Plan - Plan Instructions: Omeprazole (By mouth), Eye Lubricant (Into the eye) Referrals: Vivian Huang MD [Other] - 05/29/19 1:20 pm (Please follow-up with Dr. Huang on May 29 at 01:20) Michelet Almeida Jr, MD [Primary Care Provider] - 05/11/19 2:30 pm (Please follow-up as scheduled with Dr. Almeida) Prescriptions: Artificial Tears SOLN [Akwa Tears] 1 drop BOTH EYES QID PRN #1 bottle PRN Reason: Allergy Symptoms Omeprazole [PriLOSEC] 40 mg PO BIDAC #60 capsule. (1) Chest pain Qualifiers: Qualified Code(s): R07.9 - Chest pain, unspecified (3) Anemia Qualifiers: Anemia type: iron deficiency Iron deficiency anemia type: unspecified iron deficiency Qualified Code(s): D50.9 - Iron deficiency anemia, unspecified (5) GI bleed Qualifiers: GI bleed type/associated pathology: unspecified gastrointestinal hemorrhage type Qualified Code(s): K92.2 - Gastrointestinal hemorrhage, unspecified (6) UTI (urinary tract infection) Qualifiers: Urinary tract infection type: site unspecified Hematuria presence: without hematuria Qualified Code(s): N39.0 - Urinary tract infection, site not specified
[2019-05-04] MEDS ORDERED: Isovue-370 500 ML BOTTLE IVP ONE (19:37)
[2019-05-05 02:00] LABS: Hemoglobin 9.2 g/dL (11.5-15.4)
[2019-05-05 02:01] LABS: Hematocrit 34.4 % (35.3-44.9); Mean Corpuscular HGB Conc 26.7 g/dL (31.6-35.5); Platelet Count 305 K/mcL (140-400); Red Cell Distribution Width 21.2 % (11.5-14.5)
[2019-05-05 02:34] LABS: BUN/Creatinine Ratio 21 (6-26); Blood Urea Nitrogen 15 mg/dL (8-23); Calcium 8.7 mg/dL (8.6-10.3); Carbon Dioxide 23 mEq/L (23-29); Chloride 98 mEq/L (98-107); Glucose 116 mg/dL (70-105); Osmolality,Calculated 276 (280-300); Phosphorous 2.8 mg/dL (2.7-4.5); Potassium 5.3 mEq/L (3.5-5.1); Sodium 132 mEq/L (136-145); White Blood Count 317.6 K/mcL (4.3-11.1); eGFR For African Americans > 60 (> 60); eGFR For Non-African Americans > 60 (> 60)
[2019-05-05 02:43] LABS: Lymphocytes # 304.9 K/mcL (0.6-4.6); Neutrophils # 12.7 K/mcL (1.6-8.9); Platelet Estimate Normal (Normal)
[2019-05-05 02:44] LABS: Anisocytosis 1+ (Not Present); Hypochromasia Present (Not Present); Smudge Cells Present (Not Present)
[2019-05-05] MEDS: Regadenoson 0.4 MG/5 ML SYRINGE IVP ONE ×2 (06:52→08:02)
[2019-05-05] MEDS: cefTRIAXone 2,000 MG in Water for inj. (sterile) 20 ML 20 ML IVP SCH (09:38)
[2019-05-05] MEDS: predniSONE 20 MG TABLET PO SCH (09:38)
[2019-05-05] MEDS: Pramoxine/Zinc acetate Lotion 177 APPL/177 ML BOTTLE TP SCH (09:39)
[2019-05-05 16:41] VITALS: BP 100/49
--- NOTE | 2019-05-05 16:42 | Discharge Summary ---
Date of Encounter: 05/05/19 Time of Encounter: 16:00 - Discharge Diagnosis (1) Anemia Priority: Primary Status: Acute Assessment and Plan: 73 year old female with history of CLL who follows at the [email or web address]] who presents with low hemoglobin. She had skin biopsy in the past Tuesday in [facility]. She noticed biopsy site continually bleeding on left arm. A physician at an urgent care put some topical agent on it and it stopped bleeding. But she since then she has felt generalized weakness. She reported a couple of black stool. Patient stated she got a phone call from [facility] that her hemoglobin level was 7.1. She was suggested to come to ER for blood transfusion. Pt stated she was on Chemotherapy. But it caused severe vaginal swelling and bleeding. The chemotherapy was stopped last week. Pt stopped ASA three days ago. Hgb was 6.6 in the ED. WBC count was over 300K. Pt was assessed with anemia likely secondary to acute blood loss from GI bleed and biopsy site vs CLL. She was transfused 2 units PRBC total with improvement in her hemoglobin. GI consulted and underwent EGD. A single recently bleeding angiodysplastic lesion was seen in the stomach and was treated with bipolar cautery. She will be discharged on omeprazole BID and is to follow up outpatient with oncology for her CLL. Her fatigue and lethargy have improved She complained of chest pain and had mildly elevated troponins which may be likely demand ischemia. she hasd a 2D echo done which showed no acute abnormalities. Discussed with cardiology she can follow up as an outpatient. She is likely not a candidate for cath due to her malignancy. 35 minutes was spent discharging this patient Qualifiers: Anemia type: iron deficiency Iron deficiency anemia type: unspecified iron deficiency Qualified Code(s): D50.9 - Iron deficiency anemia, unspecified (2) CLL (chronic lymphocytic leukemia) Priority: Primary Status: Chronic Assessment and Plan: Has chronic CLL with fatigue and leukocytosis. Oncology consulted and recs pending Continue supportive care Was transfused one unit of PRBC overnight. Spiked a fever this am and was still lethargic. May be secondary to CLL vs infection Cotninue ceftriaxone, obtain CXr to r/o pneumonia. Will monitor overnight Will give one bolus of normal saline 500cc (3) Chest pain Priority: Primary Status: Acute Qualifiers: Qualified Code(s): R07.9 - Chest pain, unspecified (4) Asymptomatic bacteriuria Priority: Primary Status: Acute (5) GI bleed Priority: Primary Status: Acute Qualifiers: GI bleed type/associated pathology: unspecified gastrointestinal hemorrhage type Qualified Code(s): K92.2 - Gastrointestinal hemorrhage, unspecified (6) UTI (urinary tract infection) Priority: Primary Status: Acute Qualifiers: Urinary tract infection type: site unspecified Hematuria presence: without hematuria Qualified Code(s): N39.0 - Urinary tract infection, site not specified (7) DVT prophylaxis Priority: Primary Status: Acute Hospital course: Ms. Vega is a 73 year old female - Time Spent with Patient Total time spent providing and/or coordinating discharge services: - Discharge Medications Prescriptions: New Omeprazole [PriLOSEC] 40 mg PO BIDAC #60 capsule. Artificial Tears SOLN [Akwa Tears] 1 drop BOTH EYES QID PRN #1 bottle PRN Reason: Allergy Symptoms Continued PredniSONE [Deltasone] 20 mg PO DAILY Omeprazole [PriLOSEC] 20 mg PO DAILY Hydrocortisone/Pramoxine [Hydrocort-Pramoxine 2.5%-1% cm] 1 applic TP AD Lidocaine 1 applic TP QID PRN PRN Reason: Pain Home Medications: Hydrocortisone/Pramoxine [Hydrocort-Pramoxine 2.5%-1% cm] 1 applic TP AD 04/28/19 [History] Omeprazole [PriLOSEC] 20 mg PO DAILY 04/28/19 [History] PredniSONE [Deltasone] 20 mg PO DAILY 04/28/19 [History] Lidocaine 1 applic TP QID PRN 04/30/19 [History] Artificial Tears SOLN [Akwa Tears] 1 drop BOTH EYES QID PRN #1 bottle 05/04/19 [Rx] Omeprazole [PriLOSEC] 40 mg PO BIDAC #60 capsule. 05/04/19 [Rx] Allergies/Adverse Reactions: Allergy/AdvReac Type Severity Reaction Status Date / Time Sulfa (Sulfonamide Allergy Unknown Unknown Verified 03/05/19 11:42 Antibiotics) cefdinir Allergy Redness of Verified 04/30/19 11:08 Skin Penicillins AdvReac Unknown increased Verified 04/30/19 10:48 heart rate ciprofloxacin [From Cipro] AdvReac increased Verified 04/30/19 11:13 heart rate ibrutinib [From Imbruvica] AdvReac See Verified 04/30/19 12:30 Comments Date of admission: 05/01/19 20:59 Primary care physician: Michelet Almeida Jr, MD Consults: 04/29/19 11:20 Consult to Gastroenterology [CONS] Routine Consulting Provider: [facility] [place] Reason for Consult: acute anemia, positive stool occult; Dr. Guadarrama to call; Call Completed: No 04/29/19 19:48 Consult to Wound Care [CONS] Routine Reason for Consult: please see gluteal cleft and labia wounds - biopsy sites and reaction from chemo; patient has difficulty healing wounds; Time Notified: 19:48 Call Completed: Yes 05/01/19 15:46 Consult to Oncology [CONS] Routine Consulting Provider: [facility] [place] Reason for Consult: CLL anemia Time Notified: 15:49 Call Completed: Yes 05/03/19 11:30 Consult to Physical Therapy [CONS] Routine Comment: Evaluate, develop and implement POC Reason for Consult: weakness Does patient have active BEDREST order?: No Is patient medically & hemodynamically stable?: Yes Patient assessed for mobility or mobilized this visit?: No - Constitutional Vitals: Temp Pulse Resp BP Pulse Ox 97.9 F 70 17 100/49 97 05/05/19 16:37 05/05/19 16:37 05/05/19 16:37 05/05/19 16:37 05/05/19 16:37 Exam: GEN: NAD CVS: RRR. S1, S2, No m/r/g RESP: CTAB ABD: Soft, NT, ND, +BS EXT: No edema. 2+ DP. No rashes NEURO: Nonfocal - Patient Status Disposition: Home, Self-Care Condition: Good - Discharge Instructions Instructions: Omeprazole (By mouth), Eye Lubricant (Into the eye), Chest Pain (DC), Acute Abdominal Pain (DC) Follow Up With: Vivina Huang MD [Other] - 05/29/19 1:20 pm (Please follow-up with Dr. Huang on May 29 at 01:20) Michelet Almeida Jr, MD [Primary Care Provider] - 05/11/19 2:30 pm (Please follow-up as scheduled with Dr. Almeida)
--- NOTE | 2019-05-07 20:29 | Electrocardiograph Report ---
[address] [place], [place] [address] Test Date: 2019-05-04 Pat Name: Miguelina Vega Department: 112 Room: 2A38 Gender: F Geographic Information Systems Analyst: : 1945 Requested By: Mehreen Nickerson Order Number: [id number] Reading MD: Karl Hicks Measurements Intervals [place] Rate: 56 P: 17 [place]: 176 QRS: -40 QRSD: 111 T: 14 QT: 405 QTc: 395 Interpretive Statements SINUS BRADYCARDIA MARKED LEFT AXIS DEVIATION MODERATE INTRAVENTRICULAR CONDUCTION DELAY MINIMAL VOLTAGE CRITERIA FOR LVH, CONSIDER NORMAL VARIANT Electronically Signed On 05-07-2019 20:28:01 EDT by Karl Hicks
== END 2019-05-05 17:40 | disposition home or self-care (01) | DRG 378 ==
LOC: 2ANU 09:16 → EMEROOARM 09:16 → SUATTDRO 12:56 → 2ANU 13:56
PROVIDERS: ADMIT Internal Medicine Nephrology; ATTEND Internal Medicine

== ENCOUNTER 2019-07-19 12:06 | Inpatient (IN) ==
[2019-07-19 13:12] LABS: BUN/Creatinine Ratio 22 (6-26); Blood Urea Nitrogen 13 mg/dL (8-23); Carbon Dioxide 26 mEq/L (23-29); Chloride 95 mEq/L (98-107); Glucose 97 mg/dL (70-105); Osmolality,Calculated 264 (280-300); Potassium 3.8 mEq/L (3.5-5.1); Sodium 127 mEq/L (136-145); eGFR For African Americans > 60 (> 60); eGFR For Non-African Americans > 60 (> 60)
[2019-07-19 13:22] LABS: Red Cell Distribution Width 20.8 % (11.5-14.5)
[2019-07-19 13:24] LABS: Hematocrit 19.3 % (35.3-44.9); Mean Corpuscular HGB Conc 27.5 g/dL (31.6-35.5); Mean Corpuscular Hemoglobin 22.9 pg (28.0-33.3); Mean Corpuscular Volume 83.5 fL (83.0-100.0); Mean Platelet Volume 8.9 fL (9.4-12.4); Platelet Count 190 K/mcL (140-400); Red Blood Count 2.31 M/mcL (3.82-4.97)
[2019-07-19 13:33] LABS: Hemoglobin 5.3 g/dL (11.5-15.4)
[2019-07-19 13:34] LABS: White Blood Count 143.1 K/mcL (4.3-11.1)
[2019-07-19 13:52] LABS: Anisocytosis 2+ (Not Present); Lymphocytes # 138.8 K/mcL (0.6-4.6); Monocytes # 1.4 K/mcL (0.0-1.3); Neutrophils # 2.9 K/mcL (1.6-8.9); Platelet Estimate Normal (Normal); Smudge Cells Present (Not Present)
[2019-07-19 13:53] LABS: Hypochromasia Present (Not Present)
[2019-07-19] MEDS ORDERED: 0.9 % Sodium Chloride 250 ML ONE (14:04)
[2019-07-19] MEDS ORDERED: 0.9 % Sodium Chloride 250 ML IVC ONE (14:07)
[2019-07-19] MEDS ORDERED: Isovue-370 500 ML BOTTLE IVP ONE (14:20)
[2019-07-19 14:57] LABS: Bilirubin,Urine Small (Negative); Blood,Urine Trace-lysed (Negative); Clarity,Urine Turbid (Clear); Glucose,Urine (UA) Normal (Normal); Ketones,Urine Negative (Negative); Leukocyte Esterase,Urine Moderate (Negative); Nitrite,Urine Negative (Negative); Protein,Urine 30 mg/dL (Neg-Trace); Urobilinogen,Urine Normal (Normal)
[2019-07-19 14:59] LABS: Color,Urine Dark Yellow (Yellow)
[2019-07-19 16:04] LABS: Squamous Epithelial Cell,Urine Moderate per lpf (None-Few)
[2019-07-19 16:05] LABS: Bacteria,Urine Many per hpf (None-Few); RBC,Urine 0-3 per hpf (0-3); WBC,Urine TNTC per hpf (0-3)
[2019-07-19] MEDS ORDERED: Cefepime HCl 2,000 MG in Water for inj. (sterile) 20 ML IVP STA (16:24)
[2019-07-19] MEDS: 0.9 % Sodium Chloride 1,000 ML IVC SCH ×2 (16:48→20:24)
[2019-07-19 23:38] LABS: Hematocrit 22.9 % (35.3-44.9); Hemoglobin 6.6 g/dL (11.5-15.4); Mean Corpuscular HGB Conc 28.8 g/dL (31.6-35.5); Mean Corpuscular Hemoglobin 23.7 pg (28.0-33.3); Mean Corpuscular Volume 82.1 fL (83.0-100.0); Mean Platelet Volume 9.1 fL (9.4-12.4); Platelet Count 173 K/mcL (140-400); Red Blood Count 2.79 M/mcL (3.82-4.97); Red Cell Distribution Width 20.6 % (11.5-14.5)
[2019-07-19 23:43] LABS: White Blood Count 131.8 K/mcL (4.3-11.1)
[2019-07-19 23:54] LABS: Anisocytosis 1+ (Not Present); Hypochromasia Present (Not Present); Lymphocytes # 129.2 K/mcL (0.6-4.6); Neutrophils # 2.6 K/mcL (1.6-8.9)
[2019-07-19 23:55] LABS: Microcytosis Present (Not Present); Platelet Estimate Normal (Normal); Smudge Cells Present (Not Present)
[2019-07-20] MEDS: Cefepime HCl 1,000 MG in Water for inj. (sterile) 10 ML IVP SCH ×4 (00:23→23:28)
[2019-07-20] MEDS ORDERED: 0.9 % Sodium Chloride 250 ML ONE ×2 (04:24→10:26)
[2019-07-20 05:02] LABS: Eosinophils % 0.1 %; Hematocrit 22.8 % (35.3-44.9); Hemoglobin 6.4 g/dL (11.5-15.4); Immature Granulocytes % 0.2 % (0-4); Mean Corpuscular HGB Conc 28.1 g/dL (31.6-35.5)
[2019-07-20 05:04] LABS: Eosinophils # 0.1 K/mcL (0.0-0.6); Lymphocytes # 127.9 K/mcL (0.6-4.6); Lymphocytes % 96.9 %; Mean Corpuscular Hemoglobin 23.4 pg (28.0-33.3); Mean Corpuscular Volume 83.2 fL (83.0-100.0); Monocytes % 0.2 %; Neutrophils # 3.4 K/mcL (1.6-8.9); Platelet Count 169 K/mcL (140-400); Red Blood Count 2.74 M/mcL (3.82-4.97); Red Cell Distribution Width 20.4 % (11.5-14.5); Segmented Neutrophils % 2.6 %
[2019-07-20 05:05] LABS: Monocytes # 0.3 K/mcL (0.0-1.3)
[2019-07-20 05:20] LABS: BUN/Creatinine Ratio 22 (6-26); Blood Urea Nitrogen 11 mg/dL (8-23); Calcium 7.6 mg/dL (8.6-10.3); Carbon Dioxide 22 mEq/L (23-29); Chloride 102 mEq/L (98-107); Glucose 89 mg/dL (70-105); Magnesium 1.7 mg/dL (1.6-2.6); Osmolality,Calculated 271 (280-300); Potassium 3.9 mEq/L (3.5-5.1); Sodium 131 mEq/L (136-145); eGFR For African Americans > 60 (> 60); eGFR For Non-African Americans > 60 (> 60)
[2019-07-20 05:24] LABS: Troponin I 0.08 ng/mL (< 0.04)
[2019-07-20 05:33] LABS: Smudge Cells Present (Not Present)
[2019-07-20 05:34] LABS: Anisocytosis 1+ (Not Present); Hypochromasia Present (Not Present); Platelet Estimate Normal (Normal)
[2019-07-20] MEDS ORDERED: Ondansetron ODT 4 MG TAB.RAPDIS SL PRN (13:07)
[2019-07-20 14:18] LABS: Hematocrit 28.8 % (35.3-44.9)
[2019-07-20 14:19] LABS: Immature Reticulocyte % 14.6 % (11.0-38.0); Retculocyte # 0.07 M/mcL (0.05-0.10); Reticulocyte % 1.9 % (1.6-2.8)
[2019-07-20 14:26] LABS: Hemoglobin 8.5 g/dL (11.5-15.4)
[2019-07-20] MEDS: Lidocaine OINT 35.44 GM TUBE TP PRN (23:28)
[2019-07-21 05:22] LABS: Red Cell Distribution Width 19.9 % (11.5-14.5)
[2019-07-21 05:23] LABS: Hematocrit 26.3 % (35.3-44.9); Hemoglobin 7.5 g/dL (11.5-15.4); Mean Corpuscular HGB Conc 28.5 g/dL (31.6-35.5); Mean Corpuscular Hemoglobin 23.7 pg (28.0-33.3); Mean Platelet Volume 8.5 fL (9.4-12.4); Platelet Count 149 K/mcL (140-400); Red Blood Count 3.17 M/mcL (3.82-4.97)
[2019-07-21 05:36] LABS: White Blood Count 126.7 K/mcL (4.3-11.1)
[2019-07-21 05:45] LABS: Troponin I 0.24 ng/mL (< 0.04)
[2019-07-21 05:48] LABS: BUN/Creatinine Ratio 27 (6-26); Blood Urea Nitrogen 13 mg/dL (8-23); Calcium 7.6 mg/dL (8.6-10.3); Carbon Dioxide 23 mEq/L (23-29); Chloride 102 mEq/L (98-107); Glucose 94 mg/dL (70-105); Osmolality,Calculated 278 (280-300); Potassium 3.8 mEq/L (3.5-5.1); Sodium 134 mEq/L (136-145); eGFR For African Americans > 60 (> 60); eGFR For Non-African Americans > 60 (> 60)
[2019-07-21 06:05] LABS: Anisocytosis 1+ (Not Present); Hypochromasia Present (Not Present); Lymphocytes # 124.2 K/mcL (0.6-4.6); Neutrophils # 2.5 K/mcL (1.6-8.9); Smudge Cells Present (Not Present)
[2019-07-21 06:06] LABS: Platelet Estimate Normal (Normal)
[2019-07-21] MEDS: Cefepime HCl 1,000 MG in Water for inj. (sterile) 10 ML IVP SCH ×2 (07:53→16:25)
[2019-07-21] MEDS ORDERED: Aminoglycoside Consult 1 EACH MC ONE (08:55)
[2019-07-21] MEDS ORDERED: 0.9 % Sodium Chloride 250 ML ONE (10:35)
[2019-07-21] MEDS: Lidocaine OINT 35.44 GM TUBE TP PRN (16:36)
[2019-07-21 16:45] LABS: Hematocrit 29.2 % (35.3-44.9); Hemoglobin 8.7 g/dL (11.5-15.4)
[2019-07-22] MEDS: Cefepime HCl 1,000 MG in Water for inj. (sterile) 10 ML IVP SCH ×2 (00:43→08:09)
[2019-07-22] MEDS ORDERED: Acetaminophen 325 MG TABLET PO PRN ×2 (04:04→16:10)
[2019-07-22 06:06] LABS: Basophils % 0.1 %; Eosinophils % 0.1 %; Hematocrit 27.4 % (35.3-44.9); Lymphocytes % 96.9 %; Red Cell Distribution Width 19.9 % (11.5-14.5); Segmented Neutrophils % 2.5 %
[2019-07-22 06:07] LABS: Basophils # 0.1 K/mcL (0.0-0.2); Eosinophils # 0.1 K/mcL (0.0-0.6); Hemoglobin 8.2 g/dL (11.5-15.4); Immature Granulocytes % 0.1 % (0-4); Mean Corpuscular HGB Conc 29.9 g/dL (31.6-35.5); Mean Corpuscular Hemoglobin 25.2 pg (28.0-33.3); Mean Corpuscular Volume 84.3 fL (83.0-100.0); Mean Platelet Volume 8.9 fL (9.4-12.4); Monocytes % 0.3 %; Neutrophils # 2.9 K/mcL (1.6-8.9); Platelet Count 129 K/mcL (140-400); Red Blood Count 3.25 M/mcL (3.82-4.97)
[2019-07-22 06:26] LABS: BUN/Creatinine Ratio 31 (6-26); Blood Urea Nitrogen 14 mg/dL (8-23); Calcium 7.8 mg/dL (8.6-10.3); Carbon Dioxide 27 mEq/L (23-29); Chloride 100 mEq/L (98-107); Glucose 101 mg/dL (70-105); Osmolality,Calculated 275 (280-300); Potassium 3.9 mEq/L (3.5-5.1); Sodium 132 mEq/L (136-145); eGFR For African Americans > 60 (> 60); eGFR For Non-African Americans > 60 (> 60)
[2019-07-22 06:27] LABS: Lymphocytes # 111.8 K/mcL (0.6-4.6); Monocytes # 0.4 K/mcL (0.0-1.3); White Blood Count 115.4 K/mcL (4.3-11.1)
[2019-07-22 06:28] LABS: Anisocytosis 1+ (Not Present); Platelet Estimate Slight Decrease (Normal); Polychromasia 1+ (Not Present); Smudge Cells Present (Not Present)
[2019-07-22] MEDS: levoFLOXacin 750 MG TABLET PO SCH (14:05)
[2019-07-22 14:08] LABS: Troponin I 0.04 ng/mL (< 0.04)
[2019-07-23 05:15] LABS: Basophils % 0.1 %; Eosinophils % 0.1 %; Hemoglobin 7.9 g/dL (11.5-15.4); Immature Granulocytes % 0.2 % (0-4); Monocytes % 0.2 %
[2019-07-23 05:17] LABS: Basophils # 0.1 K/mcL (0.0-0.2); Eosinophils # 0.1 K/mcL (0.0-0.6); Hematocrit 26.5 % (35.3-44.9); Lymphocytes # 101.8 K/mcL (0.6-4.6); Lymphocytes % 96.8 %; Mean Corpuscular HGB Conc 29.8 g/dL (31.6-35.5); Mean Corpuscular Hemoglobin 25.2 pg (28.0-33.3); Mean Corpuscular Volume 84.4 fL (83.0-100.0); Mean Platelet Volume 8.8 fL (9.4-12.4); Monocytes # 0.2 K/mcL (0.0-1.3); Platelet Count 115 K/mcL (140-400); Red Blood Count 3.14 M/mcL (3.82-4.97); Red Cell Distribution Width 20.7 % (11.5-14.5); Segmented Neutrophils % 2.6 %
[2019-07-23 05:20] LABS: Neutrophils # 2.7 K/mcL (1.6-8.9)
[2019-07-23 05:23] LABS: White Blood Count 105.2 K/mcL (4.3-11.1)
[2019-07-23 05:33] LABS: BUN/Creatinine Ratio 29 (6-26); Blood Urea Nitrogen 13 mg/dL (8-23); Calcium 7.9 mg/dL (8.6-10.3); Carbon Dioxide 25 mEq/L (23-29); Chloride 99 mEq/L (98-107); Glucose 93 mg/dL (70-105); Osmolality,Calculated 280 (280-300); Potassium 4.1 mEq/L (3.5-5.1); Sodium 135 mEq/L (136-145); eGFR For African Americans > 60 (> 60); eGFR For Non-African Americans > 60 (> 60)
[2019-07-23 05:42] LABS: Platelet Estimate Normal (Normal)
[2019-07-23 05:43] LABS: Smudge Cells Present (Not Present)
[2019-07-23 05:47] LABS: Anisocytosis 1+ (Not Present)
[2019-07-23] MEDS: levoFLOXacin 750 MG TABLET PO SCH (09:40)
[2019-07-23] MEDS ORDERED: levoFLOXacin 750 MG TABLET PO SCH (12:06)
[2019-07-24 08:24] LABS: Hematocrit 27.2 % (35.3-44.9); Hemoglobin 8.1 g/dL (11.5-15.4)
[2019-07-24] MEDS: levoFLOXacin 750 MG TABLET PO SCH (09:55)
[2019-07-24 16:09] VITALS: BP 112/61
== END 2019-07-24 19:03 | disposition other institution (70) | DRG 809 ==
LOC: 2NENU 12:06 → EMEROOARM 12:06 → SUATTDRO 16:40 → 2NENU 18:50
PROVIDERS: ADMIT Internal Medicine Nephrology; ATTEND Internal Medicine

== ENCOUNTER 2019-08-15 14:58 | Inpatient (IN) ==
--- NOTE | 2019-08-15 15:00 | Emergency Department Note ---
Disposition Clinical Impression: Cellulitis of groin, left Disposition: Admitted As Inpatient Condition: Fair Time of Disposition: 19:30 General Adult HPI - General Stated complaint: possible infect. Time Seen by Provider: 08/15/19 14:59 Nursing Notes Reviewed: Yes Vital Signs Reviewed: Yes - History of Present Illness HPI Narrative: 73-year-old female presents to the emergency department with concern for left groin redness and swelling. Patient and her daughter reports that she has had issues with CLL. She has been on Levaquin for the last 2 weeks for an infection in another area. Reports that yesterday, a lot of material came out of the left inner thigh. She was told that this was lymphatic fluid. Patient with worsening redness and swelling around the area now. She denies any fevers, nausea, vomiting. Patient reports that she is not taking any other medications to cause her to be immunosuppressed at this time. - Related Data Home Medications Medication Instructions Recorded Confirmed Acetaminophen [Extra Strength 500 mg PO Q4-6H PRN 07/19/19 08/15/19 Non-Aspirin] Albuterol Sulfate [Ventolin Hfa] 2 puff IH Q6H PRN 08/16/19 08/16/19 Previous Rx's Medication Instructions Recorded Omeprazole [PriLOSEC] 40 mg PO BIDAC #60 capsule. 05/04/19 Doxycycline 100 mg PO BID 9 Days #18 capsule 08/21/19 levoFLOXacin [Levofloxacin] 750 mg PO DAILY 9 Days #9 tab 08/21/19 Allergies Allergy/AdvReac Type Severity Reaction Status Date / Time Sulfa (Sulfonamide Allergy Unknown Unknown Verified 07/20/19 14:04 Antibiotics) cefdinir Allergy Redness of Verified 07/20/19 14:04 Skin Penicillins AdvReac Unknown increased Verified 07/20/19 14:04 heart rate ciprofloxacin [From Cipro] AdvReac increased Verified 07/20/19 14:04 heart rate ibrutinib [From Imbruvica] AdvReac See Verified 07/20/19 14:04 Comments All systems ED: reviewed and negative except as stated. Review of Systems: As Per HPI Constitutional: Denies: fever Cardiovascular: Denies: chest pain Respiratory: Denies: dyspnea Gastrointestinal: Denies: abdominal pain, nausea, vomiting Musculoskeletal: Reports: other (left thigh pain) Integumentary: Denies: rash Neurological: Denies: numbness, paresthesias Past Medical History - Past Medical History Attestation: Yes The following information was validated with the patient. Medical history: Reports: cancer, DVT Surgical history: Reports: appendectomy, , hysterectomy Psychiatric history: Reports: no psych history - Social History Smoking Status: Never smoker Smokeless Tobacco Status: No Alcohol use: Reports: none Drug use: Reports: none Physical Exam - General Limitations: no limitations General appearance: alert, in no apparent distress - Head Head exam: normocephalic - Eye Eye exam: Present: EOMI - ENT ENT exam: mucous membranes moist - Neck Neck exam: Present: trachea midline - Chest Chest inspection: Present: symmetric chest wall rise - Respiratory Respiratory exam: Present: normal lung sounds bilaterally. Absent: respiratory distress, accessory muscle use - Cardiovascular Cardiovascular exam: Present: regular rate, normal rhythm, normal heart sounds - Abdominal Exam Abdominal exam: Present: soft, Non-Tender. Absent: distention, guarding, rebound - Extremities Exam Extremities exam: Present: normal capillary refill, other (Left inguinal area has some redness and erythema as well as purulent material. ) - Back Exam Back exam: Present: full ROM - Neurological Exam Neurological exam: Present: alert, oriented X3 - Psychiatric Psychiatric exam: Present: normal affect, normal mood - Skin Skin exam: Present: warm, dry, intact Course Vital Signs Temperature 98.3 F 08/15/19 15:04 Pulse Rate 71 08/15/19 15:04 Respiratory Rate 16 08/15/19 15:04 Blood Pressure 119/64 08/15/19 15:04 O2 Sat by Pulse Oximetry 99 08/15/19 15:04 Temperature 97.6 F 08/16/19 00:05 Pulse Rate 74 08/16/19 00:05 Respiratory Rate 16 08/16/19 00:05 Blood Pressure 107/67 08/16/19 00:05 O2 Sat by Pulse Oximetry 95 08/16/19 00:05 Oxygen Delivery Oxygen Delivery Room Air Medical Decision Making - MDM Narrative Medical decision making narrative: 73 year old female with concern for left keyla infection. Patient does have elevated white blood cell count but with history of chronic lymphocytic leukemia. CT does not reveal any abscess. PAtient given antibiotics. Admitted for further management as she has failed outpatient management. Pelvis CT 08/15/19 17:49 IMPRESSION: Slightly increased anasarca and pelvic ascites. No discrete abscess identified. Symptoms may relate to cellulitis. Extensive necrotic pelvic lymphadenopathy has not significantly changed. D/ / Berry Vasquez MD / Berry Vasquez MD Interpreting Provider: Berry Vasquez MD - Lab Data Result diagrams: 08/21/19 05:34 08/20/19 05:23 Lab Results 08/15/19 08/15/19 08/15/19 Range/Units 15:31 15:31 15:31 WBC 92.5 H* (4.3-11.1) K/mcL RBC 3.73 L (3.82-4.97) M/mcL Hgb 9.2 L (11.5-15.4) g/dL Hct 30.4 L (35.3-44.9) % MCV 81.5 L (83.0-100.0) fL MCH 24.7 L (28.0-33.3) pg MCHC 30.3 L (31.6-35.5) g/dL RDW 21.8 H (11.5-14.5) % Plt Count 91 L (140-400) K/mcL MPV 9.7 (9.4-12.4) fL Immature Gran % 0.2 (0-4) % Seg Neutrophils % 2.8 % Lymphocytes % 87.0 % Monocytes % 9.7 % Eosinophils % 0.2 % Basophils % 0.1 % Neutrophils # 2.6 (1.6-8.9) K/mcL Lymphocytes # 80.5 H (0.6-4.6) K/mcL Monocytes # 9.0 H (0.0-1.3) K/mcL Eosinophils # 0.2 (0.0-0.6) K/mcL Basophils # 0.1 (0.0-0.2) K/mcL Reactive Lymphocytes Present A (Not Present) Smudge Cells Present A (Not Present) Platelet Estimate Decreased L (Normal) Anisocytosis 2+ A (Not Present) Sodium 133 L (136-145) mEq/L Potassium 4.5 (3.5-5.1) mEq/L Chloride 97 L (98-107) mEq/L Carbon Dioxide 31 H (23-29) mEq/L BUN 11 (8-23) mg/dL Creatinine 0.77 (0.60-1.20) mg/dL Est GFR ( Amer) > 60 (> 60) Est GFR (Non-Af Amer) > 60 (> 60) BUN/Creatinine Ratio 14 (6-26) Glucose 92 (70-105) mg/dL Calculated Osmolality 275 L (280-300) Lactic Acid 0.9 (0.5-2.2) mmol/L Calcium 8.1 L (8.6-10.3) mg/dL Attestation Statement - Attestation Attestation: I examined this patient and my medical decision-making was reviewed with the Resident Physician. I agree with the documented findings, disposition and treatment plan as described except to the extent set forth below. Patient has pain and redness along with drainage to left groin area. She has no fever and does not appear septic. Patient will be admitted for cellulitis of groin. No areas of nec. skin infection
[2019-08-15] MEDS ORDERED: Isovue-370 500 ML BOTTLE IVP ONE (15:23)
[2019-08-15] MEDS ORDERED: 0.9 % Sodium Chloride 1,000 ML IVC ONE (15:25)
[2019-08-15] MEDS ORDERED: Morphine Sulfate 2 MG/ML SYRINGE IVP ONE (15:26)
[2019-08-15 15:53] LABS: Basophils % 0.1 %; Eosinophils % 0.2 %; Segmented Neutrophils % 2.8 %
[2019-08-15 15:55] LABS: Basophils # 0.1 K/mcL (0.0-0.2); Eosinophils # 0.2 K/mcL (0.0-0.6); Hematocrit 30.4 % (35.3-44.9); Hemoglobin 9.2 g/dL (11.5-15.4); Immature Granulocytes % 0.2 % (0-4); Lymphocytes # 80.5 K/mcL (0.6-4.6); Mean Corpuscular HGB Conc 30.3 g/dL (31.6-35.5); Mean Corpuscular Hemoglobin 24.7 pg (28.0-33.3); Mean Corpuscular Volume 81.5 fL (83.0-100.0); Mean Platelet Volume 9.7 fL (9.4-12.4); Monocytes % 9.7 %; Red Blood Count 3.73 M/mcL (3.82-4.97); Red Cell Distribution Width 21.8 % (11.5-14.5)
[2019-08-15 16:12] LABS: Neutrophils # 2.6 K/mcL (1.6-8.9); Platelet Count 91 K/mcL (140-400)
[2019-08-15 16:14] LABS: White Blood Count 92.5 K/mcL (4.3-11.1)
[2019-08-15 16:39] LABS: Smudge Cells Present (Not Present)
[2019-08-15 16:40] LABS: BUN/Creatinine Ratio 14 (6-26); Blood Urea Nitrogen 11 mg/dL (8-23); Calcium 8.1 mg/dL (8.6-10.3); Carbon Dioxide 31 mEq/L (23-29); Chloride 97 mEq/L (98-107); Glucose 92 mg/dL (70-105); Osmolality,Calculated 275 (280-300); Platelet Estimate Decreased (Normal); Potassium 4.5 mEq/L (3.5-5.1); Sodium 133 mEq/L (136-145); eGFR For African Americans > 60 (> 60); eGFR For Non-African Americans > 60 (> 60)
[2019-08-15 16:41] LABS: Anisocytosis 2+ (Not Present)
[2019-08-15 16:42] LABS: Reactive Lymphocytes Present (Not Present)
[2019-08-15] MEDS ORDERED: Cefepime HCl 1,000 MG in Water for inj. (sterile) 10 ML IVP STA (18:38)
[2019-08-15] MEDS ORDERED: Naloxone 0.4 MG/ML INJ IVP PRN (21:55)
[2019-08-15] MEDS ORDERED: Ondansetron ODT 4 MG TAB.RAPDIS SL PRN (21:55)
[2019-08-15] MEDS ORDERED: Ringers Solution, Lactated 1,000 ML IVC SCH (22:00)
--- NOTE | 2019-08-15 22:08 | Internal Med History&Physical ---
Date of Encounter: 08/16/19 Time of Encounter: 22:04 Internal Medicine - H&P: HPI Chief complaint: left abdominal pain Admitted From: Home Plans for Post Hospital Care: Home History of present illness: Ms. Vega is a 73 year old female with past medical history of stage IV CLL diagnosed in 2012 presented to the ED for worsening left abdominal pain. [id number] encounter occurred at 9:30 p.m. Patient reported a right-sided lymph node biopsy was performed at [facility] 1 week ago. Patient since then has noted drainage, pain to the right inguinal area with home nurse follow- ups. Patient went to her PCP and was started on Levaquin 750 mg daily which the patient reports compliance. Patient reported the home nurse on evaluation today noted new onset drainage, pain, and lesion on the left groin. The pateint reported it to be painful,was a new opening thus was sent to the ED. Patient is unclear of when/how the lesion occurred/appearred and was first noticed the same time when the home nurse found the lesion at home. Patient is unclear of any exacerbating or alleviating factor and no association of fever, chest pain, shortness or breath, diarrhea. Reviewed patient's past medical, surgical, family and social history. CODE STATUS remains to be full code. Past Med Surg Social Fam HX - Past Medical History Medical history: cancer, DVT Additional medical history: CLL Psychiatric history: no psych history - Past Surgical History Surgical History: appendectomy, , hysterectomy Additional surgical history: A-Port. Labia Biopsy/Removal - Social History Smoking Status: Never smoker Smokeless Tobacco Status: No Alcohol use: none Drug use: none Internal Medicine - H&P: Meds Omeprazole [PriLOSEC] 40 mg PO BIDAC #60 capsule. 05/04/19 [Rx] Acetaminophen [Extra Strength Non-Aspirin] 500 mg PO Q4-6H PRN 07/19/19 [History] levoFLOXacin [Levaquin] 750 mg PO DAILY 5 Days #0 tablet 07/23/19 [Rx] Allergy/AdvReac Type Severity Reaction Status Date / Time Sulfa (Sulfonamide Allergy Unknown Unknown Verified 07/20/19 14:04 Antibiotics) cefdinir Allergy Redness of Verified 07/20/19 14:04 Skin Penicillins AdvReac Unknown increased Verified 07/20/19 14:04 heart rate ciprofloxacin [From Cipro] AdvReac increased Verified 07/20/19 14:04 heart rate ibrutinib [From Imbruvica] AdvReac See Verified 07/20/19 14:04 Comments All Systems PM: A 10-system review of systems was performed and is negative for pertinent findings except as documented above in the HPI. Review of systems: General: No unintentional weightloss, No fever Head: No headahce, No injury. Ears: No discharge, No earache Eyes: No drainage, No eye pain Mouth and Throat: No new ulcers, No pain Nose and Sinus: No new congestion, No pain, Respiratory: No cough, No sputum production, No dyspnea Cardiovascular: No chest pain, No palpitations. Gastrointestinal: No nausea, No vomiting. No abdominal pain. Genital Tract: No discharge, No pain Urinary Tract: No dysuria, No discharge. MSK: + new/worsening joint pain, + new/worsening muscle ache. Endocrine: No cold intolerance, No polyuria Psychological: No suicidal, No homocidal ideation. - Constitutional Vitals: Temp Pulse Resp BP Pulse Ox 97.6 F 71 16 114/68 97 08/15/19 20:50 08/15/19 20:50 08/15/19 20:50 08/15/19 20:50 08/15/19 20:50 Exam: General Appearance: Appearing as age, severe malnourished in mild acute d istress. Head: Atraumatic normocephalic Skin: Normal texture, normal turgor. dry mucous membranes. Left thigh raised mass nontender with left side open inguinal draining lesion and erythematous border noted. Right side inguinal lesion noted also Eyes: Conjunctivae pale with no erythema, drainage, or ulcers. Anicteric. Neck: No Lymphadenopathy in the anterior/posterior cervical chain. No thyrom egaly, masses or ulcers. Trachea midline. Heart: RRR, grade 2 systolic murmurs. Capillary refill 3 seconds Lungs: No accessory muscle usage, lungs clear to auscultation bilaterally, no wheezes or crackles. Extremities: No pitting edema, No clubbing, No cyanosis. Abdomen: Non-distended, normoactive bowel sounds. non-tender to palpation, no hepatomegally. No guarding. Neuro: AOx3 with no new sensory loss or focal deficits. MSK: Strength 5/5 Upper extremity equal bilaterally. Strength 5/5 Lower ext remity equal bilaterally Internal Med - H&P Results - Labs CBC & Chem 7: 08/15/19 15:31 08/15/19 15:31 Labs: Short CBC 08/15/19 Range/Units 15:31 WBC 92.5 H* (4.3-11.1) K/mcL Hgb 9.2 L (11.5-15.4) g/dL Hct 30.4 L (35.3-44.9) % Plt Count 91 L (140-400) K/mcL Neutrophils # 2.6 (1.6-8.9) K/mcL BMP 08/15/19 15:31 Sodium 133 L Potassium 4.5 Chloride 97 L Carbon Dioxide 31 H BUN 11 Creatinine 0.77 Glucose 92 Calcium 8.1 L - Impressions ITS Impressions Pelvis CT 08/15/19 17:49 IMPRESSION: Slightly increased anasarca and pelvic ascites. No discrete abscess identified. Symptoms may relate to cellulitis. Extensive necrotic pelvic lymphadenopathy has not significantly changed. D/ / Berry Vasquez MD / Berry Vasquez MD Interpreting Provider: Berry Vasquez MD - Summary of Assessment and Plan Summary of Assessment and Plan: 1.Left inguinal cellulitis: No evidence of abscess on CT pelvis with contrast Continue vancomycin, check response. 2.Stage IV CLL due to thrombocytopenia: Oncology consultation for prognosis and possible hospice? requesting [facility] 3.Microcytic anemia: Likely secondary to #2. Anemia panel ordered 4.Severe malnutrition, Nutrition consultation 5.Hypocalcemia: Checking albumin 6.Hypovolemic hyponatremia: Gentle IVF and recheck in the a.m. DVT prophylaxis: Heparin Disposition likely less than 2 day stay - Time Spent With Patient Total time spent is greater than 38 minutes 50% in coordination of care (as documented) at patient's floor/unit and/or counseling patient: Greater than 35 minutes
[2019-08-15 22:52] LABS: Bilirubin,Urine Negative (Negative); Blood,Urine Negative (Negative); Clarity,Urine Clear (Clear); Color,Urine Yellow (Yellow); Glucose,Urine (UA) Normal (Normal); Ketones,Urine Negative (Negative); Leukocyte Esterase,Urine Negative (Negative); Nitrite,Urine Negative (Negative); PH,Urine 7.5 pH Units (5.0-8.0); Protein,Urine Negative (Neg-Trace); Specific Gravity,Urine 1.021 (1.010-1.025); Urobilinogen,Urine Normal (Normal)
[2019-08-15] MEDS: *HR* Heparin 5,000 UNIT/ML VIAL SQ SCH (23:43)
[2019-08-16] MEDS: *HR* Heparin 5,000 UNIT/ML VIAL SQ SCH ×3 (05:42→19:57)
[2019-08-16 06:42] LABS: Basophils % 0.2 %; Eosinophils % 0.2 %; Immature Reticulocyte % 26.4 % (11.0-38.0); Red Cell Distribution Width 21.9 % (11.5-14.5); Retculocyte # 0.08 M/mcL (0.05-0.10); Reticulocyte % 2.4 % (1.6-2.8); Segmented Neutrophils % 2.7 %
[2019-08-16 06:43] LABS: Eosinophils # 0.2 K/mcL (0.0-0.6); Hemoglobin 8.3 g/dL (11.5-15.4); Immature Granulocytes % 0.3 % (0-4); Lymphocytes # 75.9 K/mcL (0.6-4.6); Lymphocytes % 86.3 %; Mean Corpuscular HGB Conc 29.6 g/dL (31.6-35.5); Mean Corpuscular Hemoglobin 24.5 pg (28.0-33.3); Mean Corpuscular Volume 82.6 fL (83.0-100.0); Monocytes # 9.1 K/mcL (0.0-1.3); Monocytes % 10.3 %; Neutrophils # 2.4 K/mcL (1.6-8.9); Red Blood Count 3.39 M/mcL (3.82-4.97)
[2019-08-16 06:53] LABS: Prothrombin Time 11.6 Seconds (9.4-12.1)
[2019-08-16 06:56] LABS: Activated Partial Thrombo Time 30.1 Seconds (26.0-36.0)
[2019-08-16 07:04] LABS: Basophils # 0.2 K/mcL (0.0-0.2); Platelet Count 83 K/mcL (140-400); White Blood Count 87.9 K/mcL (4.3-11.1)
[2019-08-16 07:07] LABS: % Iron Saturation 42 % (15-50); Iron 56 mcg/dL (50-170); Transferrin 96 mg/dL (203-362)
[2019-08-16 07:13] LABS: Alanine Aminotransferase 3 Units/L (7-52); Albumin 2.8 g/dL (3.5-5.7); Albumin/Globulin Ratio 1.6 (1.1-2.2); Alkaline Phosphatase 108 Units/L (34-104); Aspartate Amino Transferase 12 Units/L (13-39); BUN/Creatinine Ratio 14 (6-26); Bilirubin,Total 0.6 mg/dL (0.3-1.0); Blood Urea Nitrogen 10 mg/dL (8-23); Carbon Dioxide 27 mEq/L (23-29); Chloride 99 mEq/L (98-107); Chol/HDL Ratio 4.5 (0-4.9); Cholesterol 86 mg/dL (< 200); Globulin 1.8 g/dL (2.4-3.5); Glucose 85 mg/dL (70-105); HDL Cholesterol 19 mg/dL (40-59); LDL Cholesterol,Calculated 44 mg/dL (0-99); Magnesium 1.7 mg/dL (1.6-2.6); Osmolality,Calculated 280 (280-300); Phosphorous 2.8 mg/dL (2.7-4.5); Potassium 3.9 mEq/L (3.5-5.1); Sodium 136 mEq/L (136-145); Total Protein 4.6 g/dL (6.4-8.9); Triglycerides 114 mg/dL (< 150); Troponin I 0.08 ng/mL (< 0.04); eGFR For African Americans > 60 (> 60); eGFR For Non-African Americans > 60 (> 60)
[2019-08-16 07:21] LABS: Ferritin 207 ng/mL (10-120)
[2019-08-16 07:26] LABS: Folate 6.1 ng/mL (3.0-16.0)
[2019-08-16 08:41] LABS: Platelet Estimate Decreased (Normal); Reactive Lymphocytes Present (Not Present); Smudge Cells Present (Not Present)
[2019-08-16 10:40] LABS: Procalcitonin 0.24 ng/mL (0.00-0.15)
--- NOTE | 2019-08-16 13:54 | Oncology Inp Consult Note ---
<Don Quintanilla Jr - Last Filed: 08/17/19 16:17> Date of Encounter: 08/17/19 Time of Encounter: 13:50 Assessment and Plan (1) CLL (chronic lymphocytic leukemia) Status: Chronic Assessment and plan: This is a very pleasant 73 year old female well-known to [facility] last several years for diagnosis and treatment of chronic lymphocytic leukemia. Previously, the patient is been on ibruitnib, but was stopped in late spring 2018 due to toxicity. She was then placed on acalibrutinib. This was also stopped. She opted for conservative management. Last seen on 07/23/[address] Howard as inpatient consult. At that time, patient and family decided to be transferred to [facility] for further assessment and treatment of CLL, necrotic pelvis lymphadenopathy, and low Hgb and platelets. During that time she had a punch biopsy of right groin/lymph node. This has since become infected. Patient discharged from [facility] around 07/31/19. She was discharged to home hospice with [facility]. After 2-3 days, patient and family decided to be discharged from hospice. They were enrolled with [facility] being managed by Dr Michelet Almeida. They have helped manage her right groin cellulitis and necrotic lymph nodes with oral antibiotics over the last 2 weeks. Today, during my conversation, patient states she felt "forced" to accept hospice by [facility], and this was not her wishes. Her daughter Crystal at bedside in agreement. She can still make her own independent decisions, and felt better served by home health and conservative measures. Patient now with left groin discharge and cellulitis from nectrotic lymph adenopathy. This condition has been chronic on imaging scans. She was admitted for IV antibiotics ad further discussion of her cancer care and home arrangements. Recommendations: 1. Patient able to make independent decisions. I agree, as patient was able to give me a timeline of events over the last several weeks. She wants to remain full code. 2. Our plan moving forward will be to treat her cellulitis with IV antibiotics. We suggest ID consult to see if she will benefit from IV or PO antibiotics at home or wound care. The necrotic nodes will be a chronic issue 3. At discharge, she will continue with [facility] with Dr Almeida, as is currently. Home health is managing her home care including cellulitis infections. Claritza Mccarty CNP had seen her prior to admission for PO antibiotics. Patient and daughter happy with [facility] 4. She will re-establish with Dr Howard at [facility] as outpatient, because of her bad experience with [facility]. Patient will continue conservative observation of her blood counts with no treatment for CLL at this time. She understands that this can end her life. She expressed her view that when the time comes, she would prefer [facility] when her condition deteriorates. For now, she feels her quality of life is manageable and she wants to decide when the time is appropriate for hospice care. Her daughter Marian supported her mother's decision. We will continue to follow along. We appreciate Palliative Care and ID input. Dr Howard agrees with above plan of care (2) Cellulitis of groin, left Status: Acute - Data of Consult Patient: known to practice within the last 3 years Consult date: 08/23/19 Requesting Physician: Yolanda Washington MD Primary Care Provider: Michelet Almeida Jr, MD - Consult Narrative Reason for consult: history of CLL with necrotic lymphadenopathy History of present illness: Mrs. Vega is a 73 year old female with known history known to [facility]. Most recently seen by Dr Howard on 07/26/19. Since that time, she transferred care to [facility]. Oncology History: Diagnosis: 1. Gloria stage I CLL initially diagnosed 09/09. 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 Most recent imaging 07/12/17 with extensive adenopathy about neck, chest, abdomen and pelvis. Splenomegaly. 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 Saeed. Course complicated by recurrent hemolytic anemia. 2. Therapy-related PE 12/15/13 s/p 6 months Xarelto 3. Ascending aorta aneurysm 4.1 cm Prior treatment: 1. FCR x 3 cycles completed 11/15/13, stopped secondary to severe autoimmune hemolytic anemia 2. Xarelto Current therapy: 1. Observation 2. Previous CLL treatments ibruvica (stopped for toxic side effects) then p laced on acalibrutinib (stopped summer 2018) Treatment intent: Palliation Past Med Surg Social Fam HX - Past Medical History Medical history: cancer, DVT Additional medical history: CLL Psychiatric history: no psych history - Past Surgical History Surgical History: appendectomy, , hysterectomy Additional surgical history: A-Port. Labia Biopsy/Removal - Social History Smoking Status: Never smoker Smokeless Tobacco Status: No Alcohol use: none Drug use: none Medications and Allergies Omeprazole [PriLOSEC] 40 mg PO BIDAC #60 capsule. 05/04/19 [Rx] Acetaminophen [Extra Strength Non-Aspirin] 500 mg PO Q4-6H PRN 07/19/19 [History] Albuterol Sulfate [Ventolin Hfa] 2 puff IH Q6H PRN 08/16/19 [History] levoFLOXacin [Levofloxacin] 750 mg PO DAILY 08/16/19 [History] Allergy/AdvReac Type Severity Reaction Status Date / Time Sulfa (Sulfonamide Allergy Unknown Unknown Verified 07/20/19 14:04 Antibiotics) cefdinir Allergy Redness of Verified 07/20/19 14:04 Skin Penicillins AdvReac Unknown increased Verified 07/20/19 14:04 heart rate ciprofloxacin [From Cipro] AdvReac increased Verified 07/20/19 14:04 heart rate ibrutinib [From Imbruvica] AdvReac See Verified 07/20/19 14:04 Comments Constitutional: Present: fatigue, weakness Respiratory: Present: dyspnea Musculoskeletal: Present: joint swelling, muscle weakness Hematologic/Lymphatic: Present: lymphadenopathy (left groin, right groin) Oncology - Exam - Constitutional General appearance: cooperative, no acute distress - Head Head exam: Present: normal inspection, normocephalic - Eye Eye exam: Present: PERRL - ENT ENT exam: Present: mucous membranes dry, mucous membranes moist - Neck Neck exam: Present: full ROM - Respiratory Respiratory exam: Present: decreased breath sounds - Cardiovascular Cardiovascular exam: Present: RRR - GI/Abdominal GI/Abdominal exam: Present: soft - Extremities Exam Extremities exam: Present: full ROM, joint swelling - Neurological Exam Neurological exam: Present: alert, no focal deficits - Psychiatric Psychiatric exam: Present: flat affect, normal mood - Skin Skin exam: Present: dry, pallor Oncology Inpatient Results Labs: Laboratory Last Values WBC 87.9 K/mcL (4.3-11.1) H* 08/16/19 06:09 RBC 3.39 M/mcL (3.82-4.97) L 08/16/19 06:09 Hgb 8.3 g/dL (11.5-15.4) L 08/16/19 06:09 Hct 28.0 % (35.3-44.9) L 08/16/19 06:09 MCV 82.6 fL (83.0-100.0) L 08/16/19 06:09 MCH 24.5 pg (28.0-33.3) L 08/16/19 06:09 MCHC 29.6 g/dL (31.6-35.5) L 08/16/19 06:09 RDW 21.9 % (11.5-14.5) H 08/16/19 06:09 Plt Count 83 K/mcL (140-400) L 08/16/19 06:09 MPV 9.0 fL (9.4-12.4) L 08/16/19 06:09 Reticulocyte # 0.08 M/mcL (0.05-0.10) 08/16/19 06:09 Immature Gran % 0.3 % (0-4) 08/16/19 06:09 Seg Neutrophils % 2.7 % 08/16/19 06:09 Lymphocytes % 86.3 % 08/16/19 06:09 Monocytes % 10.3 % 08/16/19 06:09 Eosinophils % 0.2 % 08/16/19 06:09 Basophils % 0.2 % 08/16/19 06:09 Neutrophils # 2.4 K/mcL (1.6-8.9) 08/16/19 06:09 Lymphocytes # 75.9 K/mcL (0.6-4.6) H 08/16/19 06:09 Monocytes # 9.1 K/mcL (0.0-1.3) H 08/16/19 06:09 Eosinophils # 0.2 K/mcL (0.0-0.6) 08/16/19 06:09 Basophils # 0.2 K/mcL (0.0-0.2) 08/16/19 06:09 Reactive Lymphocytes Present (Not Present) A 08/16/19 06:09 Smudge Cells Present (Not Present) A 08/16/19 06:09 Platelet Estimate Decreased (Normal) L 08/16/19 06:09 Anisocytosis 2+ (Not Present) A 08/15/19 15:31 Percent Retic 2.4 % (1.6-2.8) 08/16/19 06:09 Immature Retic Fraction 26.4 % (11.0-38.0) 08/16/19 06:09 Retic Hgb Equivalent 19.8 pg (28.61-36.33) L 08/16/19 06:09 PT 11.6 Seconds (9.4-12.1) 08/16/19 06:09 INR 1.0 08/16/19 06:09 APTT 30.1 Seconds (26.0-36.0) 08/16/19 06:09 Sodium 136 mEq/L (136-145) 08/16/19 06:09 Potassium 3.9 mEq/L (3.5-5.1) 08/16/19 06:09 Chloride 99 mEq/L (98-107) 08/16/19 06:09 Carbon Dioxide 27 mEq/L (23-29) 08/16/19 06:09 BUN 10 mg/dL (8-23) 08/16/19 06:09 Creatinine 0.71 mg/dL (0.60-1.20) 08/16/19 06:09 Est GFR ( Amer) > 60 (> 60) 08/16/19 06:09 Est GFR (Non-Af Amer) > 60 (> 60) 08/16/19 06:09 BUN/Creatinine Ratio 14 (6-26) 08/16/19 06:09 Glucose 85 mg/dL (70-105) 08/16/19 06:09 POC Glucose 85 mg/dL (70-99) 08/16/19 05:46 Calculated Osmolality 280 (280-300) 08/16/19 06:09 Lactic Acid 0.9 mmol/L (0.5-2.2) 08/15/19 15:31 Calcium 8.0 mg/dL (8.6-10.3) L 08/16/19 06:09 Phosphorus 2.8 mg/dL (2.7-4.5) 08/16/19 06:09 Magnesium 1.7 mg/dL (1.6-2.6) 08/16/19 06:09 Iron 56 mcg/dL (50-170) 08/16/19 06:09 % Saturation 42 % (15-50) 08/16/19 06:09 Transferrin 96 mg/dL (203-362) L 08/16/19 06:09 Ferritin 207 ng/mL (10-120) H 08/16/19 06:09 Total Bilirubin 0.6 mg/dL (0.3-1.0) 08/16/19 06:09 AST 12 Units/L (13-39) L 08/16/19 06:09 ALT 3 Units/L (7-52) L 08/16/19 06:09 Alkaline Phosphatase 108 Units/L (34-104) H 08/16/19 06:09 Troponin I 0.08 ng/mL (< 0.04) H* 08/16/19 06:09 Serum Total Protein 4.6 g/dL (6.4-8.9) L 08/16/19 06:09 Albumin 2.8 g/dL (3.5-5.7) L 08/16/19 06:09 Globulin 1.8 g/dL (2.4-3.5) L 08/16/19 06:09 Albumin/Globulin Ratio 1.6 (1.1-2.2) 08/16/19 06:09 Triglycerides 114 mg/dL (< 150) 08/16/19 06:09 Cholesterol 86 mg/dL (< 200) 08/16/19 06:09 LDL Cholesterol, Calc 44 mg/dL (0-99) 08/16/19 06:09 VLDL Cholesterol, Calc 23 mg/dL (< 31) 08/16/19 06:09 HDL Cholesterol 19 mg/dL (40-59) L 08/16/19 06:09 Cholesterol/HDL Ratio 4.5 (0-4.9) 08/16/19 06:09 Folate 6.1 ng/mL (3.0-16.0) 08/16/19 06:09 Procalcitonin 0.24 ng/mL (0.00-0.15) H 08/16/19 06:09 Urine Color Yellow (Yellow) 08/15/19 22:29 Urine Clarity Clear (Clear) 08/15/19 22:29 Urine pH 7.5 pH Units (5.0-8.0) 08/15/19 22:29 Ur Specific [place] 1.021 (1.010-1.025) 08/15/19 22:29 Urine Protein Negative mg/dL (Neg-Trace) 08/15/19 22:29 Urine Glucose (UA) Normal mg/dL (Normal) 08/15/19 22:29 Urine Ketones Negative mg/dL (Negative) 08/15/19 22:29 Urine Blood Negative (Negative) 08/15/19 22:29 Urine Nitrite Negative (Negative) 08/15/19 22:29 Urine Bilirubin Negative (Negative) 08/15/19 22:29 Urine Urobilinogen Normal mg/dL (Normal) 08/15/19 22:29 Ur Leukocyte Esterase Negative (Negative) 08/15/19 22:29 Consult Discharge Plan - Plan Referrals: Michelet Almeida Jr, MD [Primary Care Provider] - <Kelly Howard - Last Filed: 08/17/19 17:15> Date of Encounter: 08/17/19 - Data of Consult Requesting Physician: Yolanda Washington MD Primary Care Provider: Michelet Almeida Jr, MD - Consult Narrative History of present illness: Patient with advanced CLL, bulky lymphadenopathy, status post chemotherapy in the past, progressive disease treatment with ibrutinib,acalibrutinib, symptomatic from bulky lymphadenopathy drainage at prior biopsy site possible infection, antibiotics per ID recommendations. We had discussed extensively with patient supportive care and hospice approach, patient and family would like to continue with supportive care and transfusion as necessary with lab check. We will continue to follow patient up for supportive care in the hospital and in clinic as outpatient. Lab works overall stable. She denies pain issues. Therapy as tolerated. I examined this patient and my medical decision-making was reviewed with the Advanced Practice Nurse, Don Quintanilla. I agree with the documented findings, disposition and treatment plan as described except to the extent set forth below. - Attending Attestation I examined this patient and my medical decision-making was reviewed with the Advanced Practice Nurse, Don Quintanilla. I agree with the documented findings, disposition and treatment plan as described except to the extent set forth below. Inpatient Charges Provider: Dr. Steve Howard Consult - Inpatient: [id number]
--- NOTE | 2019-08-16 13:59 | Internal Med Progress Note ---
Hospitalist Progress Note - Encounter Date of Encounter: 08/16/19 Time of Encounter: 10:20 - Subjective Interval History: No acute events overnight. Patient is sad and states that she "wants to give up" but also wants to see the of her new great granddaughter. She denies fever and abdominal pain but admits intermittent chills. - Exam Vitals: Temp Pulse Resp BP Pulse Ox 36.5 C 75 16 118/67 97 08/16/19 11:26 08/16/19 11:08/16/19 11:08/16/19 11:08/16/19 11:26 Exam: GENERAL: Not in distress. Alert and Oriented HEENT: EOMI, PERRLA MOUTH: Moist oral mucosa NECK:No JVD, No lymph nodes. CHEST AND LUNGS: Normal breath sounds, no wheezes or crackles HEART: S1 and S2 normal, no murmurs ABDOMEN: Prominent bilateral lymphadenopathy with purulent discharge from punctum on the side. Surrounding skin is erythematous, warm and tender. SKIN: Normal color, no rahses, no lesions EXTREMITIES: No deformity, no edema, no tenderness, no joint swelling or cl ubbing NEUROLOGICAL: Normal cognition, normal motor and sensory exam. - Assessment and Plan (1) Inguinal lymphadenitis Current Visit: Yes Status: Acute Assessment and Plan: Patient has a history of CLL and extensive lymphadenopathy She has large bilateral inguinal lymph nodes States that the left inguinal lymph node has become painful in the last 3 -4 days and is not associated with purulent discharge. Examination reveals large bilateral retinal lymph nodes. Discharge observed from a punctum on the left side with surrounding erythematous, warm and tender skin. CT scan showed slightly increased anasarca and pelvic ascites. No discrete abscess identified. Extensive necrotic pelvic lymphadenopathy which has not significantly changed from previous CT scan. Patient given a dose of Vanco and cefepime in the ED She has a penicillin and sulfa allergy We will consult ID (2) Cellulitis of groin, left Current Visit: Yes Status: Acute Assessment and Plan: Management as above (3) CLL (chronic lymphocytic leukemia) Current Visit: No Status: Chronic Assessment and Plan: Patient being followed by oncology Current treatment plan with palliative intent. We will consult palliative care (4) Anemia Current Visit: No Status: Acute Assessment and Plan: Patient has microcytic anemia which may be inflammatory or related to her CLL We will monitor (5) Hyponatremia Current Visit: No Status: Resolved Assessment and Plan: Presented with a sodium of 133 Currently resolved with gentle hydration We will continue to monitor (6) DVT prophylaxis Current Visit: No Status: Acute Assessment and Plan: Subcutaneous heparin - Time Spent with Patient Total time spent is greater than 50% in coordination of care (as documented) at patient's floor/unit and/or counseling patient: Internal Medicine: Result - Labs CBC & Chem 7: 08/16/19 06:09 08/16/19 06:09 Labs: Short CBC 08/15/19 08/16/19 Range/Units 15:31 06:09 WBC 92.5 H* 87.9 H* (4.3-11.1) K/mcL Hgb 9.2 L 8.3 L (11.5-15.4) g/dL Hct 30.4 L 28.0 L (35.3-44.9) % Plt Count 91 L 83 L (140-400) K/mcL Neutrophils # 2.6 2.4 (1.6-8.9) K/mcL BMP 08/15/19 08/16/19 15:31 06:09 Sodium 133 L 136 Potassium 4.5 3.9 Chloride 97 L 99 Carbon Dioxide 31 H 27 BUN 11 10 Creatinine 0.77 0.71 Glucose 92 85 Calcium 8.1 L 8.0 L Cardiac Enzymes 08/15/19 08/16/19 Range/Units 22:42 06:09 Troponin I < 0.03 0.08 H* (< 0.04) ng/mL Liver Function 08/16/19 Range/Units 06:09 Total Bilirubin 0.6 (0.3-1.0) mg/dL AST 12 L (13-39) Units/L ALT 3 L (7-52) Units/L Alkaline Phosphatase 108 H (34-104) Units/L Albumin 2.8 L (3.5-5.7) g/dL Urine 08/15/19 Range/Units 22:29 Urine Color Yellow (Yellow) Urine Clarity Clear (Clear) Urine pH 7.5 (5.0-8.0) pH Units Ur Specific [place] 1.021 (1.010-1.025) Urine Protein Negative (Neg-Trace) mg/dL Urine Glucose (UA) Normal (Normal) mg/dL - ABG Interpretation ABG results: PT/INR, D-dimer PT 11.6 Seconds (9.4-12.1) 08/16/19 06:09 - Impressions Impressions Pelvis CT 08/15/19 17:49 IMPRESSION: Slightly increased anasarca and pelvic ascites. No discrete abscess identified. Symptoms may relate to cellulitis. Extensive necrotic pelvic lymphadenopathy has not significantly changed. D/ / Berry Vasquez MD / Berry Vasquez MD Interpreting Provider: Berry Vasquez MD Consult Discharge Plan - Plan Referrals: Michelet Almeida Jr, MD [Primary Care Provider] - (4) Anemia Qualifiers: Anemia type: bone marrow failure Bone marrow failure anemia type: unspecified bone marrow failure Qualified Code(s): D61.9 - Aplastic anemia, unspecified
[2019-08-16] MEDS ORDERED: Fluconazole 100 MG TABLET PO ONE (14:04)
--- NOTE | 2019-08-16 15:56 | Palliative - Consult Note ---
Date of Encounter: 08/16/19 Time of Encounter: 15:00 - Assessment and Plan (1) Goals of care, counseling/discussion Current Visit: Yes Status: Acute Assessment and plan: Patient currently lives alone with the care of paid caregivers and family. She has [facility] visiting 3 days a week for care of wound. Daughter Beatrice and janelle [id number] Di actively engaged in her care. Patient has completed advanced directives and daughter Marian to bring in copies for review. Patient currently a FULL CODE and states that she would desire live saving interventions and desires short term intubation BUT would not desire to live in a vegetative state. Daughter Marian confirms patients desires. Patient goals are to have palliative medical management of CLL and have lymphadenopathy and cellulitis treated for as long as physically possible. Patient is clear at this time that she is not ready for hospice care. She desires to transition home with services and continue seeing her PCP Dr. Almeida as well as having f/u at the [facility] so blood test and levels can be closely monitored. Patient remains FULL CODE. Patient with clear goals in place. (2) Palliative care encounter Current Visit: Yes Status: Acute (3) Lymphadenopathy Current Visit: Yes Status: Acute (4) Cellulitis of groin, left Current Visit: Yes Status: Acute Assessment and plan: Care per primary care team. Dressings CDI. (5) CLL (chronic lymphocytic leukemia) Current Visit: Yes Status: Chronic Assessment and plan: Oncology input reviewed. Patient to have f/u at [facility]. Patient and family no longer desire care at [facility]. Palliative-CN HPI - Data of Consult Patient: new to practice Consult date: 08/16/19 Requesting Physician: Yolanda Washington MD Primary Care Provider: Michelet Almeida Jr, MD - Consult Narrative Palliative Care/Comfort Measures: Palliative care Reason for consult: Goals of Care History of present illness: Ms. Vega is a 73 year old female past medical history of stage IV CLL diagnosed in 2012 presented to the ED for worsening left abdominal pain. Patient was seen at [facility] for right-sided lymph node biopsy 1 week ago. Patient noted drainage, pain to the right inguinal area with home nurse follow-ups. Patient went to her PCP and was started on Levaquin 750 mg daily which the patient reports compliance. Reviewed patient's past medical, surgical, family and social history. CODE STATUS is full code. This palliative care consult is for GOC discussion. CC: Yolanda Washington MD - Time Spent with Patient Time: Total time spent is greater than 50% in coordination of care (as documented) at patient's floor/unit and/or counseling patient: Past Med Surg Social Fam HX - Past Medical History Medical history: cancer, DVT Additional medical history: CLL Psychiatric history: no psych history - Past Surgical History Surgical History: appendectomy, , hysterectomy Additional surgical history: A-Port. Labia Biopsy/Removal - Social History Smoking Status: Never smoker Smokeless Tobacco Status: No Alcohol use: none Drug use: none Medications and Allergies Omeprazole [PriLOSEC] 40 mg PO BIDAC #60 capsule. 05/04/19 [Rx] Acetaminophen [Extra Strength Non-Aspirin] 500 mg PO Q4-6H PRN 07/19/19 [History] Albuterol Sulfate [Ventolin Hfa] 2 puff IH Q6H PRN 08/16/19 [History] levoFLOXacin [Levofloxacin] 750 mg PO DAILY 08/16/19 [History] Allergy/AdvReac Type Severity Reaction Status Date / Time Sulfa (Sulfonamide Allergy Unknown Unknown Verified 07/20/19 14:04 Antibiotics) cefdinir Allergy Redness of Verified 07/20/19 14:04 Skin Penicillins AdvReac Unknown increased Verified 07/20/19 14:04 heart rate ciprofloxacin [From Cipro] AdvReac increased Verified 07/20/19 14:04 heart rate ibrutinib [From Imbruvica] AdvReac See Verified 07/20/19 14:04 Comments Review of systems: draining inguinal lymph node - Constitutional Constitutional ROS PAL: decreased appetite, anorexia - EENT Eyes: requires corrective lenses - Musculoskeletal Musculoskeletal ROS IM: muscle weakness - Neurological Neurological ROS: weakness Palliative Care-Exam - Constitutional Vitals: Temp Pulse Resp BP Pulse Ox 97.7 F 75 16 118/67 97 08/16/19 11:26 08/16/19 11:26 08/16/19 11:26 08/16/19 11:26 08/16/19 11:26 General appearance: Present: cooperative, no acute distress - Head Head Exam: Present: atraumatic, normal inspection - Eye Pupils: Present: PERRL - Expanded ENT Exam Mouth Exam: Present: normal external inspection - Respiratory Respiratory exam: Present: CTAB - Cardiovascular Cardiovascular exam: Present: RRR, +S1, +S2 - Expanded Cardiovascular Exam Peripheral pulses: 1+: Posterior Tibialis (L), Posterior Tibialis (R), Dorsalis Pedis (L) PM, Dorsalis Pedis (R) PM, 2+: Carotid (L) PM, Carotid (R) PM, Radial (L), Radial (R) - GI/Abdominal Exam GI/Abdominal exam: Present: normal bowel sounds additional comments: Bilateral dressings to inguinal lymph nodes. CDI - Rectal Rectal exam: Present: deferred - Extremities Exam Extremities exam: Present: normal inspection - Neurological Exam Neurological exam: Present: alert, oriented X3 - Expanded Neurological Exam Coma Scale Eye Opening: Spontaneous Coma Scale Motor Response: Obeys Commands Coma Scale Verbal Response: Oriented Coma Scale Total: 15 - Psychiatric Psychiatric exam: Present: flat affect - Skin Skin exam: Present: pallor, warm Internal Medicine - CN: Reslt - Labs CBC & Chem 7: 08/16/19 06:09 08/16/19 06:09 Labs: Short CBC 08/15/19 08/16/19 Range/Units 15:31 06:09 WBC 92.5 H* 87.9 H* (4.3-11.1) K/mcL Hgb 9.2 L 8.3 L (11.5-15.4) g/dL Hct 30.4 L 28.0 L (35.3-44.9) % Plt Count 91 L 83 L (140-400) K/mcL Neutrophils # 2.6 2.4 (1.6-8.9) K/mcL BMP 08/15/19 08/16/19 15:31 06:09 Sodium 133 L 136 Potassium 4.5 3.9 Chloride 97 L 99 Carbon Dioxide 31 H 27 BUN 11 10 Creatinine 0.77 0.71 Glucose 92 85 Calcium 8.1 L 8.0 L Cardiac Enzymes 08/15/19 08/16/19 Range/Units 22:42 06:09 Troponin I < 0.03 0.08 H* (< 0.04) ng/mL Liver Function 08/16/19 Range/Units 06:09 Total Bilirubin 0.6 (0.3-1.0) mg/dL AST 12 L (13-39) Units/L ALT 3 L (7-52) Units/L Alkaline Phosphatase 108 H (34-104) Units/L Albumin 2.8 L (3.5-5.7) g/dL Urine 08/15/19 Range/Units 22:29 Urine Color Yellow (Yellow) Urine Clarity Clear (Clear) Urine pH 7.5 (5.0-8.0) pH Units Ur Specific [place] 1.021 (1.010-1.025) Urine Protein Negative (Neg-Trace) mg/dL Urine Glucose (UA) Normal (Normal) mg/dL - ABG Interpretation ABG results: PT/INR, D-dimer PT 11.6 Seconds (9.4-12.1) 08/16/19 06:09 - Impressions Impressions Pelvis CT 08/15/19 17:49 IMPRESSION: Slightly increased anasarca and pelvic ascites. No discrete abscess identified. Symptoms may relate to cellulitis. Extensive necrotic pelvic lymphadenopathy has not significantly changed. D/ / Berry Vasquez MD / Berry Vasquez MD Interpreting Provider: Berry Vasquez MD Consult Discharge Plan - Plan Referrals: Michelet Almeida Jr, MD [Primary Care Provider] - Palliative Quality Palliative Quality: Screen for Code Status: Yes, Screen for Goals of Care: Yes, Screen for Pain: Yes Code Status: 08/15/19 21:55 Resuscitation Status: Active [RES] Routine Comment: Resuscitation Status: Full Code Palliative Scale - Palliative Performance Scale How ambulatory is this patient?: Reduced What is patient's level of activity and evidence of disease?: Unable normal job/work, Significant disease How much self-care assistance does patient require?: Occasional assistance necessary How much oral intake does the patient have?: Normal or reduced Palliative Performance Score: 40 %
--- NOTE | 2019-08-16 16:54 | Infectious Disease Consult ---
Infectious Disease-Consult - Encounter Date/Time Date of Encounter: 08/16/19 Time of Encounter: 16:44 - Data of Consult Patient: new to practice Reason for consult: "Bilateral inguinal lymphadenitis with purulent discharge" Consult date: 08/16/19 Requesting Physician: Yolanda Washington MD Primary Care Provider: Michelet Almeida Jr, MD - HPI HPI: Patient is a 73-year-old woman who presented to [place] on 08/15/2019 with left abdominal pain. We are consult dated on 08/16/2019 for inguinal lymphadenitis with purulent discharge. Patient is a 73-year-old woman with past medical history significant for chronic lymphocytic leukemia stage IV diagnosed in 2012. Patient was treated with ibruitnib through spring but was stopped due to toxicity. Patient decided to stop all chemotherapy and CLL treatment and wanted conservative management only. Patient was also seen on 07/20/2019 here at [place] with fatigue . At that time patient was found to be anemic, AV malformation, and a CT abdomen and pelvis revealed multiple new and enlarging lymph nodes throughout the abdomen and pelvis with central necrosis/fluid. An stable appearance of the left lower lobe of the pulmonary nodule compatible with metastatic disease and a mild hydronephrosis probably from mass effect and liver suggesting cirrhosis with abdominal ascites. Patient had a urine culture done on 07/19/2019 which was positive for Citrobacter and Klebsiella. Patient also had a wound culture obtained from the groin which was also positive for Citrobacter pansensitive and klebsiella R: Ampicillin and cefazolin. Patient was treated with levofloxacin with a plan to treat for 10 days. Patient was transferred to [facility] for further workup and evaluation. Patient was discharged from [facility] about 1 week prior to admission and since then she has noted drainage and pain to the right inguinal area. Patient went to her PCP and she was started on levofloxacin 750 mg daily. Patient's pain got worse so she decided to come back to the emergency department for evaluation. Since admission, patient did not meet sepsis criteria. Presenting labs revealed a WBC of 92.5 with 87% lymphocytes which is typical from her CLL. BUN 11 creatinine 0.77. A urinalysis was within normal limits. Blood cultures 2 were obtained and are so far no growth. CT of the pelvis was read as "slightly increased anasarca and pelvic ascites. No discrete abscess identified. Symptoms may relate to cellulitis. Extensive necrotic pelvic lymphadenopathy has not significantly changed." Patient was started on vancomycin and cefepime and we were asked to evaluate the patient and make further recommendation. Please note that the patient is allergic to sulfa, Ceftin year, penicillin, ciprofloxacin. Currently patient lying in bed. Appears comfortable. She does not appear ill but no acute distress. Patient denies any headache no chest pain no shortness of breath no cough no sputum production. No nausea no vomiting. No diarrhea no urinary symptoms. She does have gauze over her draining lymph nodes. She tells me the gauze gets saturated probably twice 724 hours and need to be changed. Patient denies abdominal pain. - ROS Review of Systems: 10 point review of systems done, negative other for what mentioned in the history of present illness. - Results CBC & Chem 7: 08/16/19 06:09 08/16/19 06:09 - Exam Vitals: Temp Pulse Resp BP Pulse Ox 97.7 F 75 16 118/67 97 08/16/19 11:26 08/16/19 11:26 08/16/19 11:26 08/16/19 11:26 08/16/19 11:26 Exam: GENERAL: Laying in bed, appears comfortable. HEAD: Normocephalic atraumatic EYES: PERRLA, EOMI, no conjunctival hemorrhage, sclera anicteric ENT: Mucous membranes moist, no oral thrush NECK: Supple. No meningeal signs. No masses LUNGS: Chest expanding symmetrically. Lungs sounds audible both lung corbett. No wheezing, no rhonchi CV: RRR, S1S2, ABDOMEN: Soft, nontender, nondistended. Bowel sounds audible. Patient has significant palpable large lymphadenopathies bilateral inguinal region with some drainage and ulceration. BACK: No CVA tenderness. Normal inspection. No tenderness over the spine EXTREMITY: Adequate perfusion. No joint effusion. SKIN: Normal color. No rash. NEURO: Awake alert oriented 3. No obvious focal deficit PSYCH: Calm and appropriate. No agitation. Omeprazole [PriLOSEC] 40 mg PO BIDAC #60 capsule. 05/04/19 [Rx] Acetaminophen [Extra Strength Non-Aspirin] 500 mg PO Q4-6H PRN 07/19/19 [History] Albuterol Sulfate [Ventolin Hfa] 2 puff IH Q6H PRN 08/16/19 [History] levoFLOXacin [Levofloxacin] 750 mg PO DAILY 08/16/19 [History] Allergy/AdvReac Type Severity Reaction Status Date / Time Sulfa (Sulfonamide Allergy Unknown Unknown Verified 07/20/19 14:04 Antibiotics) cefdinir Allergy Redness of Verified 07/20/19 14:04 Skin Penicillins AdvReac Unknown increased Verified 07/20/19 14:04 heart rate ciprofloxacin [From Cipro] AdvReac increased Verified 07/20/19 14:04 heart rate ibrutinib [From Imbruvica] AdvReac See Verified 07/20/19 14:04 Comments - Assessment and Plan (1) Inguinal lymphadenitis Current Visit: Yes Status: Acute Likely secondary to CLL Cultures from previous admissions on 07/19/2019 from the groin were positive for Citrobacter pansensitive and klebsiella R: Ampicillin/cefazolin Progressively getting worse with worse drainage. SNOMED Code(s): 27435088, 138080450 (2) Cellulitis of groin, left Current Visit: Yes Status: Acute Secondary to inguinal lymphadenitis CT pelvis reviewed Patient is immunocompromised Multiple antibiotic allergies but she is tolerating cefepime even though she is allergic to another cephalosporin and penicillin SNOMED Code(s): 08123068 (3) CLL (chronic lymphocytic leukemia) Current Visit: Yes Status: Chronic Diagnosed in 2012 Stage IV No longer tolerating chemotherapy (last received in the spring) Appreciate hematology/oncology input Prognosis poor SNOMED Code(s): 67885215 (4) Allergy to multiple antibiotics Current Visit: Yes Status: Acute Sulfa, Ceftin, penicillin, ciprofloxacin Exact reaction not known. Patient does not remember. I believe most of them appears to be intolerances like nausea or feeling her heart racing. Denies history of anaphylaxis. SNOMED Code(s): 698175184203351 - Recommendations Recommendations: Please obtain wound culture Continue vancomycin/cefepime Goal vancomycin trough around 1015 Duration of treatment depends on the clinical picture but we can likely switch the patient to oral antibiotics I asked the patient if she had the cataracts or if she does have cats worried about including toxoplasmosis? Cat scratch fever? Fungal? Atypical mycobacterium? If she does not improve on antibiotics, we will consider discussing with hematology/oncology if a biopsy is warranted to rule out other causes. We will continue to follow Past Med Surg Social Fam HX - Past Medical History Medical history: cancer, DVT Additional medical history: CLL Psychiatric history: no psych history - Past Surgical History Surgical History: appendectomy, , hysterectomy Additional surgical history: A-Port. Labia Biopsy/Removal - Social History Smoking Status: Never smoker Smokeless Tobacco Status: No Alcohol use: none Drug use: none Consult Discharge Plan - Plan Referrals: Michelet Almeida Jr, MD [Primary Care Provider] -
[2019-08-16] MEDS: Cefepime HCl 2,000 MG in Water for inj. (sterile) 20 ML IVP SCH (19:08)
[2019-08-17] MEDS: Cefepime HCl 2,000 MG in Water for inj. (sterile) 20 ML IVP SCH ×2 (05:22→18:59)
[2019-08-17] MEDS: *HR* Heparin 5,000 UNIT/ML VIAL SQ SCH (05:22)
[2019-08-17 10:46] LABS: BUN/Creatinine Ratio 17 (6-26); Blood Urea Nitrogen 13 mg/dL (8-23); Carbon Dioxide 27 mEq/L (23-29); Chloride 100 mEq/L (98-107); Glucose 105 mg/dL (70-105); Osmolality,Calculated 274 (280-300); Potassium 3.9 mEq/L (3.5-5.1); Sodium 132 mEq/L (136-145); eGFR For African Americans > 60 (> 60); eGFR For Non-African Americans > 60 (> 60)
--- NOTE | 2019-08-17 12:01 | Palliative Progress Note ---
Date of Encounter: 08/17/19 Time of Encounter: 12:00 - Assessment and plan (1) Cellulitis of groin, left Current Visit: Yes Status: Acute Assessment and plan: Followed by ID, continues treatment. (2) Goals of care, counseling/discussion Current Visit: Yes Status: Acute Assessment and plan: F/u from yesterdays discussion. Patient desires to continue plan and will [facility] Continues to be full code. Daughter to bring in adv directives for our records. D/W primary nurse Monique. She will go home with [employer] Palliative currently not managing any symptoms and will sign off. Please call if needed. (3) Palliative care encounter Current Visit: Yes Status: Acute (4) CLL (chronic lymphocytic leukemia) Current Visit: Yes Status: Chronic - Time Spent With Patient Total time spent is greater than 50% in coordination of care (as documented) at patient's floor/unit and/or counseling patient: - Subjective Interval history: Patient awake and alert, c/o bilateral groin discomfort and drainage. Still with shortness of breath with exertion. No family present. WBC remains high at 87.9 consistent with CLL. Vitals stable. No other complaints. - Constitutional Vitals: Abnormal lab results WBC 87.9 K/mcL (4.3-11.1) H* 08/16/19 06:09 RBC 3.39 M/mcL (3.82-4.97) L 08/16/19 06:09 Hgb 8.3 g/dL (11.5-15.4) L 08/16/19 06:09 Hct 28.0 % (35.3-44.9) L 08/16/19 06:09 MCV 82.6 fL (83.0-100.0) L 08/16/19 06:09 MCH 24.5 pg (28.0-33.3) L 08/16/19 06:09 MCHC 29.6 g/dL (31.6-35.5) L 08/16/19 06:09 RDW 21.9 % (11.5-14.5) H 08/16/19 06:09 Plt Count 83 K/mcL (140-400) L 08/16/19 06:09 MPV 9.0 fL (9.4-12.4) L 08/16/19 06:09 Lymphocytes # 75.9 K/mcL (0.6-4.6) H 08/16/19 06:09 Monocytes # 9.1 K/mcL (0.0-1.3) H 08/16/19 06:09 Reactive Lymphocytes Present (Not Present) A 08/16/19 06:09 Smudge Cells Present (Not Present) A 08/16/19 06:09 Platelet Estimate Decreased (Normal) L 08/16/19 06:09 Anisocytosis 2+ (Not Present) A 08/15/19 15:31 Retic Hgb Equivalent 19.8 pg (28.61-36.33) L 08/16/19 06:09 Sodium 132 mEq/L (136-145) L 08/17/19 10:01 Chloride 97 mEq/L (98-107) L 08/15/19 15:31 Carbon Dioxide 31 mEq/L (23-29) H 08/15/19 15:31 Calculated Osmolality 274 (280-300) L 08/17/19 10:01 Calcium 8.0 mg/dL (8.6-10.3) L 08/17/19 10:01 Transferrin 96 mg/dL (203-362) L 08/16/19 06:09 Ferritin 207 ng/mL (10-120) H 08/16/19 06:09 AST 12 Units/L (13-39) L 08/16/19 06:09 ALT 3 Units/L (7-52) L 08/16/19 06:09 Alkaline Phosphatase 108 Units/L (34-104) H 08/16/19 06:09 Troponin I 0.08 ng/mL (< 0.04) H* 08/16/19 06:09 Serum Total Protein 4.6 g/dL (6.4-8.9) L 08/16/19 06:09 Albumin 2.8 g/dL (3.5-5.7) L 08/16/19 06:09 Globulin 1.8 g/dL (2.4-3.5) L 08/16/19 06:09 HDL Cholesterol 19 mg/dL (40-59) L 08/16/19 06:09 Procalcitonin 0.24 ng/mL (0.00-0.15) H 09/19/19 06:09 General appearance: Present: no acute distress - Respiratory Respiratory exam: Present: decreased breath sounds, CTAB - Cardiovascular Cardiovascular exam: Present: +S1, +S2 - GI/Abdominal GI/Abdominal exam: Present: normal bowel sounds, soft - Extremities Exam Extremities exam: Present: normal capillary refill, normal inspection - Neurological Exam Neurological exam: Present: alert, oriented X3, strengths equal and symetr throughout - Skin Skin exam: Present: dry, pallor, warm Palliative Quality Palliative Quality: Screen for Code Status: Yes, Screen for Goals of Care: Yes, Screen for Pain: Yes Code Status: 08/15/19 21:55 Resuscitation Status: Active [RES] Routine Comment: Resuscitation Status: Full Code - Labs CBC & Chem 7: 08/16/19 06:09 08/17/19 10:01 Labs: Laboratory Results - last 24 hr 08/17/19 08/17/19 10:01 10:01 Sodium 132 L Potassium 3.9 Chloride 100 Carbon Dioxide 27 BUN 13 Creatinine 0.75 Est GFR ( Amer) > 60 Est GFR (Non-Af Amer) > 60 BUN/Creatinine Ratio 17 Glucose 105 Calculated Osmolality 274 L Calcium 8.0 L Troponin I < 0.03 - ABG Interpretation ABG results: PT/INR, D-dimer PT 11.6 Seconds (9.4-12.1) 08/16/19 06:09 Palliative Scale - Palliative Performance Scale How ambulatory is this patient?: Reduced What is patient's level of activity and evidence of disease?: Unable normal gabriella b/work, Significant disease How much self-care assistance does patient require?: Occasional assistance necessary How much oral intake does the patient have?: Normal or reduced Palliative Performance Score: 40 % Consult Discharge Plan - Plan Referrals: Michelet Almeida Jr, MD [Primary Care Provider] -
--- NOTE | 2019-08-17 12:29 | Infectious Disease Progress No ---
ID Progress Note Date of Encounter: 08/17/19 Time of Encounter: 12:27 - Subjective Subjective: Patient seen and examined. No acute events noted overnight. Patient states she feels a little better today. Denies fevers, chills, or rigors. Denies chest pain or cough. Reports some intermittent shortness of breath. Denies oral thrush or skin rashes. STates the left groin pain is better and appears less red. - Objective CBC & Chem 7: 08/16/19 06:08/17/19 10:01 - Exam Vitals: Temp Pulse Resp BP Pulse Ox 97.5 F L 67 15 119/68 97 08/17/19 07:18 08/17/19 07:18 08/17/19 07:18 08/17/19 07:18 08/17/19 07:18 Exam: Head: Atraumatic, normal inspection, normocephalic. Eye: EOMI, PERRLA, no scleral icterus noted. ENT: Mucous membranes moist. No odontogenic infection noted. Neck: Normal inspection, no meningismus. Respiratory: Clear to auscultation. No rales, respiratory distress, rhonchi, or wheezes noted. Cardiovascular: Regular rate and rhythm, S1 and S2 audible. No murmurs, rubs, or gallops. GI: Soft, nondistended, normal bowel sounds. Non-tender. Extremities:No joint swelling, pedal edema, or tenderness noted. Left groing with a palpable, tender mass to the left upper thigh. Three small open areas noted with lymph tissue in the wound bed. Serous drainage noted. Surrounding erythema noted. Warm to touch and tender. No foul odor. Neurological: Alert, oriented 3, no focal deficits. Psychiatric: normal affect, normal mood. Skin: Dry, intact, warm. Normal color. No rashes. - Assessment and Plan (1) Inguinal lymphadenitis Current Visit: Yes Status: Acute Likely secondary to CLL. Location: bilateral. Cultures from previous admissions on 07/19/2019 from the groin were positive for Citrobacter pansensitive and klebsiella R: Ampicillin/cefazolin. Treated with PO levaquin. Failed outpatient oral antibiotics. Progressively getting worse with worse drainage. Continue vancomycin/cefepime Not sure if toxoplasmosis vs. cat scratch fever vs. fungal vs. NTM on the differential. If she does not improve on antibiotics, consider discussing with hem atology/oncology if a biopsy is warranted to rule out other causes. Currently on Vanc and Cefepime. SNOMED Code(s): 39891939, [id number] (2) Cellulitis of groin, left Current Visit: Yes Status: Acute Secondary to inguinal lymphadenitis. CT pelvis reviewed. Patient is immunocompromised. Causative organism unclear. Unsure if wound cultures were collected. Patient states they were done, but no cultures are pending. Will contact lab. Discussed with nursing. Improved per patient report. Currently on Vanc and Cefepime. SNOMED Code(s): 93584642 (3) CLL (chronic lymphocytic leukemia) Current Visit: Yes Status: Chronic Diagnosed in 2012. Stage IV. No longer tolerating chemotherapy (last received in the spring). Appreciate hematology/oncology input. Prognosis poor. Palliative care consulted and patient wishes to pursue treatment for her infection at this time. SNOMED Code(s): 61192841 (4) Allergy to multiple antibiotics Current Visit: Yes Status: Acute Sulfa, Ceftin, penicillin, ciprofloxacin. Exact reaction not known. Patient does not remember. I believe most of them appears to be intolerances like nausea or feeling her heart racing. Denies history of anaphylaxis. SNOMED Code(s): 052259030146545 - Recommendations Recommendations: Please obtain wound culture. Unsure if these were collected. Will contact lab. Discussed with nursing. Dressing changes per the wound care team. Continue Vancomycin IV. Pharmacy to dose. Goal trough ~15. Continue cefepime 2 grams IV Q12H. Duration of treatment depends on the clinical picture. Monitor renal function and for drug toxicity and dose-adjust antibiotics. Consult Discharge Plan - Plan Referrals: Michelet Almeida Jr, MD [Primary Care Provider] -
--- NOTE | 2019-08-17 12:55 | Internal Med Progress Note ---
Hospitalist Progress Note - Encounter Date of Encounter: 08/17/19 Time of Encounter: 10:00 - Subjective Interval History: No acute events overnight. Patient states that she generally feels better. She denies fever, chills, nausea, vomiting and pain in her inguinal region. - Exam Vitals: Temp Pulse Resp BP Pulse Ox 36.4 C L 67 15 119/68 97 08/17/19 07:18 08/17/19 07:18 08/17/19 07:18 08/17/19 07:18 08/17/19 07:18 Exam: GENERAL: Not in distress. Alert and Oriented HEENT: EOMI, PERRLA MOUTH: Moist oral mucosa NECK:No JVD, No lymph nodes. CHEST AND LUNGS: Normal breath sounds, no wheezes or crackles HEART: S1 and S2 normal, no murmurs ABDOMEN: Prominent bilateral lymphadenopathy with purulent discharge from punctum on the left side. Surrounding skin remains erythematous but less so compared to yesterday. Mild tenderness. SKIN: Normal color, no rahses, no lesions EXTREMITIES: No deformity, no edema, no tenderness, no joint swelling or clubbing NEUROLOGICAL: Normal cognition, normal motor and sensory exam. - Assessment and Plan (1) Inguinal lymphadenitis Current Visit: Yes Status: Acute Assessment and Plan: Lymph nodes not as tender as yesterday. Some purulent discharge observed today as well. ID on board. Recommend obtaining wound cultures. Continue Vanc and cefepime. (2) Cellulitis of groin, left Current Visit: Yes Status: Acute Assessment and Plan: Management as above (3) CLL (chronic lymphocytic leukemia) Current Visit: Yes Status: Chronic Assessment and Plan: Patient being followed by oncology Current treatment plan with palliative intent. Seen by palliative care. Pt understands and accepts current treatment with palliative intent for CLL. (4) Anemia Current Visit: No Status: Acute Assessment and Plan: Patient has microcytic anemia which may be inflammatory or related to her CLL We will monitor (5) Hyponatremia Current Visit: No Status: Acute Assessment and Plan: Sodium back down to 132 Will llimit free water intake. Monitor (6) DVT prophylaxis Current Visit: No Status: Acute Assessment and Plan: EPCDs. Hold heparin due to thrombocytopenia. - Time Spent with Patient Total time spent is greater than 50% in coordination of care (as documented) at patient's floor/unit and/or counseling patient: Internal Medicine: Result - Labs CBC & Chem 7: 08/16/19 06:09 08/17/19 10:01 Labs: BMP 08/17/19 10:01 Sodium 132 L Potassium 3.9 Chloride 100 Carbon Dioxide 27 BUN 13 Creatinine 0.75 Glucose 105 Calcium 8.0 L Cardiac Enzymes 08/17/19 Range/Units 10:01 Troponin I < 0.03 (< 0.04) ng/mL - ABG Interpretation ABG results: PT/INR, D-dimer PT 11.6 Seconds (9.4-12.1) 08/16/19 06:09 Consult Discharge Plan - Plan Referrals: Michelet Almeida Jr, MD [Primary Care Provider] - __ (4) Anemia Qualifiers: Anemia type: bone marrow failure Bone marrow failure anemia type: unspecified bone marrow failure Qualified Code(s): D61.9 - Aplastic anemia, unspecified
--- NOTE | 2019-08-17 13:25 | Oncology Inp Progress Note ---
<Don Quintanilla Jr - Last Filed: 08/17/19 13:23> Date of Encounter: 08/17/19 Time of Encounter: 13:23 (1) CLL (chronic lymphocytic leukemia) Current Visit: Yes Status: Chronic Assessment and plan: This is a very pleasant 73 year old female well-known to [facility] last several years for diagnosis and treatment of chronic lymphocytic leukemia. Patient feels better, much less sore of left groin and right groin. Discharge and cellulitis from nectrotic lymphadenopathy due to CLL. This condition has been chronic since taking and stopping Ibrutinib oral treatment 3 months ago. Recommendations: 1. Appreciate ID input to treat her cellulitis with IV antibiotics and assistanc e for PO antibiotics at home and wound care. The necrotic nodes will be a chronic issue to deal with as an outpatient. 2. At discharge, she will continue with [facility] with Dr Almeida, as is shavon jeffers. 3. She was seen this afternoon by myself and Dr Howard with a discussion with patient and her daughter in law (Di). Patient will continue conservative observation of her blood counts with no treatment for CLL at this time. She will follow us as an outpateint for managing counts and transfusions. Her elevated WBC is in her baselines as part of current admission, exacerbated by cellulitis. She looks much better to us than yesterday. We will continue to follow along. Dr Howard is production team manager the next 7 days for oncology, and will most likely see her over the weekend. (2) Cellulitis of groin, left Current Visit: Yes Status: Acute Oncology: Subj Interval history: Patient supine in bed with daughter in law (Di) at bedside. Patient feels better today, bilateral groin not as sore as it was yesterday. - Constitutional General appearance: cooperative, no acute distress - Head Head exam: Present: normal inspection, normocephalic - Eye Eye exam: Present: normal appearance, PERRL - ENT ENT exam: Present: mucous membranes moist - Neck Neck exam: Present: full ROM - Respiratory Respiratory exam: Present: decreased breath sounds - Cardiovascular Cardiovascular exam: Present: RRR - GI/Abdominal GI/Abdominal exam: Present: normal bowel sounds, soft - Extremities Exam Extremities exam: Present: full ROM, normal inspection - Neurological Exam Neurological exam: Present: alert, oriented X3, no focal deficits - Psychiatric Psychiatric exam: Present: normal affect, normal mood Oncology: Obj Data - Labs CBC & Chem 7: 08/16/19 06:09 08/17/19 10:01 Consult Discharge Plan - Plan Referrals: Michelet Almeida Jr, MD [Primary Care Provider] - <Kelly Howard - Last Filed: 08/17/19 17:11> Date of Encounter: 08/17/19 Oncology: Subj Interval history: Patient seen and examined bedside lab works reviewed, infectious disease recommendations reviewed. I examined this patient and my medical decision-making was reviewed with the Advanced Practice Nurse, Don Quintanilla. I agree with the documented findings, disposition and treatment plan as described except to the extent set forth below. Oncology: Obj Data - Labs CBC & Chem 7: 08/16/19 06:09 08/17/19 10:01 Inpatient Charges Provider: Dr. Steve Howard Follow up - Inpatient: [id number]
[2019-08-18 02:39] LABS: BUN/Creatinine Ratio 24 (6-26); Blood Urea Nitrogen 17 mg/dL (8-23); Carbon Dioxide 28 mEq/L (23-29); Chloride 100 mEq/L (98-107); Glucose 95 mg/dL (70-105); Osmolality,Calculated 275 (280-300); Potassium 5.2 mEq/L (3.5-5.1); Sodium 132 mEq/L (136-145); eGFR For African Americans > 60 (> 60); eGFR For Non-African Americans > 60 (> 60)
[2019-08-18] MEDS: Cefepime HCl 2,000 MG in Water for inj. (sterile) 20 ML IVP SCH ×2 (06:32→18:02)
--- NOTE | 2019-08-18 11:48 | Internal Med Progress Note ---
Hospitalist Progress Note - Encounter Date of Encounter: 08/18/19 Time of Encounter: 08:15 - Subjective Interval History: No acute events overnight. Patient admits that she thinks she is generally improving. She denies fever, chills and groin pain. - Exam Vitals: Temp Pulse Resp BP Pulse Ox 36.5 C 71 16 93/56 99 08/18/19 11:28 08/18/19 11:28 08/18/19 11:28 08/18/19 11:28 08/18/19 11:28 Exam: GENERAL: Not in distress. Alert and Oriented HEENT: EOMI, PERRLA MOUTH: Moist oral mucosa NECK:No JVD, No lymph nodes. CHEST AND LUNGS: Normal breath sounds, no wheezes or crackles HEART: S1 and S2 normal, no murmurs ABDOMEN: Prominent bilateral inguinal lymphadenopathy Surrounding skin less erythematous. SKIN: Normal color, no rahses, no lesions EXTREMITIES: No deformity, no edema, no tenderness, no joint swelling or clubbing NEUROLOGICAL: Normal cognition, normal motor and sensory exam. - Assessment and Plan (1) Inguinal lymphadenitis Current Visit: Yes Status: Acute Assessment and Plan: Clean dressing over bilateral inguinal lymph nodes. ID on board. Wound cultures pending Continue Vanc and cefepime. (2) Cellulitis of groin, left Current Visit: Yes Status: Acute Assessment and Plan: Skin less erythematous than yesterday. Continue IV antibiotics (3) CLL (chronic lymphocytic leukemia) Current Visit: Yes Status: Chronic Assessment and Plan: Patient being followed by oncology Current treatment plan with palliative intent. Seen by palliative care. Pt understands and accepts current treatment with palliative intent for CLL. Oncology plans conservative observation of her blood counts. (4) Anemia Current Visit: No Status: Acute Assessment and Plan: Patient has microcytic anemia which may be inflammatory or related to her CLL We will monitor (5) Hyponatremia Current Visit: No Status: Acute Assessment and Plan: Sodium remains at 132 Limit free water intake. Continue to monitor (6) DVT prophylaxis Current Visit: No Status: Acute Assessment and Plan: EPCDs. Hold heparin due to thrombocytopenia. - Time Spent with Patient Total time spent is greater than 50% in coordination of care (as documented) at patient's floor/unit and/or counseling patient: Internal Medicine: Result - Labs CBC & Chem 7: 08/16/19 06:19 01:55 Labs: [facility] 08/18/19 01:55 Sodium 132 L Potassium 5.2 H D Chloride 100 Carbon Dioxide 28 BUN 17 Creatinine 0.72 Glucose 95 Calcium 8.0 L - ABG Interpretation ABG results: PT/INR, D-dimer PT 11.6 Seconds (9.4-12.1) 08/16/19 06:09 Consult Discharge Plan - Plan Referrals: Michelet Almeida Jr, MD [Primary Care Provider] - (4) Anemia Qualifiers: Anemia type: bone marrow failure Bone marrow failure anemia type: unspecified bone marrow failure Qualified Code(s): D61.9 - Aplastic anemia, unspecified
[2019-08-19 04:29] LABS: BUN/Creatinine Ratio 30 (6-26); Blood Urea Nitrogen 18 mg/dL (8-23); Calcium 7.6 mg/dL (8.6-10.3); Carbon Dioxide 27 mEq/L (23-29); Chloride 101 mEq/L (98-107); Glucose 81 mg/dL (70-105); Osmolality,Calculated 277 (280-300); Potassium 5.1 mEq/L (3.5-5.1); Sodium 133 mEq/L (136-145); eGFR For African Americans > 60 (> 60); eGFR For Non-African Americans > 60 (> 60)
[2019-08-19] MEDS: Cefepime HCl 2,000 MG in Water for inj. (sterile) 20 ML IVP SCH ×2 (05:53→18:44)
--- NOTE | 2019-08-19 09:31 | Oncology Inp Progress Note ---
Date of Encounter: 08/19/19 Time of Encounter: 08:00 (1) CLL (chronic lymphocytic leukemia) Current Visit: Yes Status: Chronic Assessment and plan: Stable labs, labs to be repeated next wk. Wound drainage-adenopathy pelvic-material inspected in the container. Wound care evaluation for bed side procedure. Transfuse blood products as needed. Drinking ensure daily. Denies pain issues. Oncology: Subj Interval history: Resting comfortably, denies complaints. - Constitutional General appearance: no acute distress - Head Head exam: Present: atraumatic, normal inspection - Eye Eye exam: Present: sclera anicteric - ENT ENT exam: Present: mucous membranes dry - Cardiovascular Cardiovascular exam: Present: +S1, +S2 - GI/Abdominal GI/Abdominal exam: Present: distended, normal bowel sounds, soft Additional comments: lymphadenopathy, wound drainage/dressing - Neurological Exam Neurological exam: Present: alert, CN II-XII intact, oriented X3 Additional comments: gen wkness Oncology: Obj Data - Labs CBC & Chem 7: 08/16/19 06:09 08/19/19 03:47 Consult Discharge Plan - Plan Referrals: Michelet Almeida Jr, MD [Primary Care Provider] - Inpatient Charges Provider: Dr. Steve Howard Follow up - Inpatient: [id number]
--- NOTE | 2019-08-19 11:06 | Internal Med Progress Note ---
Hospitalist Progress Note - Encounter Date of Encounter: 08/19/19 Time of Encounter: 07:50 - Subjective Interval History: No acute events overnight. Nurse was at bedside and showed me about 80ml of thick curdy purulent material that she extracted this morning from patient's left groin. Patient states that she only has tenderness when her groin is touched. She also denies fever, chills, nausea and vomiting. - Exam Vitals: Temp Pulse Resp BP Pulse Ox 36.7 C 82 16 103/61 98 08/19/19 02:52 08/19/19 02:52 08/19/19 02:52 08/19/19 02:52 08/19/19 02:52 Exam: GENERAL: Not in distress. Alert and Oriented HEENT: EOMI, PERRLA MOUTH: Moist oral mucosa. CHEST AND LUNGS: Normal breath sounds, no wheezes or crackles HEART: S1 and S2 normal, no murmurs ABDOMEN: Prominent bilateral inguinal lymphadenopathy Patient has open wounds in the left inguinal region (more lower aspect of iliac region of abdomen) where the collection of pus had been. SKIN: Normal color, no rahses, no lesions EXTREMITIES: No deformity, no edema, no tenderness, no joint swelling or clubbing NEUROLOGICAL: Normal cognition, normal motor and sensory exam. - Assessment and Plan (1) Inguinal lymphadenitis Current Visit: Yes Status: Acute Assessment and Plan: Serosanguinous discharge ion right side. Curdy discharge from left side as already described. ID on board. Wound cultures pending Continue Vanc and cefepime. (2) Cellulitis of groin, left Current Visit: Yes Status: Acute Assessment and Plan: Skin tender and erythematous. Continue IV antibiotics (3) CLL (chronic lymphocytic leukemia) Current Visit: Yes Status: Chronic Assessment and Plan: Patient being followed by oncology Current treatment plan with palliative intent. Seen by palliative care. Pt understands and accepts current treatment with palliative intent for CLL. Oncology plans conservative observation of her blood counts. To transfuse as needed. (4) Anemia Current Visit: No Status: Acute Assessment and Plan: Patient has microcytic anemia which may be inflammatory or related to her CLL We will monitor (5) Hyponatremia Current Visit: No Status: Acute Assessment and Plan: Sodium remains at 133 Limit free water intake. Continue to monitor (6) DVT prophylaxis Current Visit: No Status: Acute Assessment and Plan: EPCDs. Hold heparin due to thrombocytopenia. - Time Spent with Patient Total time spent is greater than 50% in coordination of care (as documented) at patient's floor/unit and/or counseling patient: Internal Medicine: Result - Labs CBC & Chem 7: 08/16/19 06:09 08/19/19 03:47 Labs: BMP 08/19/19 03:47 Sodium 133 L Potassium 5.1 Chloride 101 Carbon Dioxide 27 BUN 18 Creatinine 0.61 Glucose 81 Calcium 7.6 L - ABG Interpretation ABG results: PT/INR, D-dimer PT 11.6 Seconds (9.4-12.1) 08/16/19 06:09 Consult Discharge Plan - Plan Referrals: Michelet Almeida Jr, MD [Primary Care Provider] - (4) Anemia Qualifiers: Anemia type: bone marrow failure Bone marrow failure anemia type: unspecified bone marrow failure Qualified Code(s): D61.9 - Aplastic anemia, unspecified
[2019-08-20] MEDS: Cefepime HCl 2,000 MG in Water for inj. (sterile) 20 ML IVP SCH ×2 (05:43→17:14)
[2019-08-20 05:54] LABS: Mean Corpuscular Hemoglobin 24.3 pg (28.0-33.3); Mean Platelet Volume 9.4 fL (9.4-12.4)
[2019-08-20 05:56] LABS: Hematocrit 27.9 % (35.3-44.9); Hemoglobin 8.2 g/dL (11.5-15.4); Mean Corpuscular HGB Conc 29.4 g/dL (31.6-35.5); Mean Corpuscular Volume 82.5 fL (83.0-100.0); Red Blood Count 3.38 M/mcL (3.82-4.97); Red Cell Distribution Width 22.3 % (11.5-14.5)
[2019-08-20 06:03] LABS: Platelet Count 99 K/mcL (140-400)
[2019-08-20 06:04] LABS: White Blood Count 130.7 K/mcL (4.3-11.1)
[2019-08-20 06:07] LABS: BUN/Creatinine Ratio 27 (6-26); Blood Urea Nitrogen 18 mg/dL (8-23); Calcium 8.2 mg/dL (8.6-10.3); Carbon Dioxide 28 mEq/L (23-29); Chloride 100 mEq/L (98-107); Glucose 81 mg/dL (70-105); Osmolality,Calculated 277 (280-300); Sodium 133 mEq/L (136-145); eGFR For African Americans > 60 (> 60); eGFR For Non-African Americans > 60 (> 60)
[2019-08-20 07:08] LABS: Lymphocytes # 125.5 K/mcL (0.6-4.6); Neutrophils # 5.2 K/mcL (1.6-8.9)
[2019-08-20 07:09] LABS: Platelet Estimate Decreased (Normal); Reactive Lymphocytes Present (Not Present); Smudge Cells Present (Not Present)
--- NOTE | 2019-08-20 15:19 | Internal Med Progress Note ---
Hospitalist Progress Note - Encounter Date of Encounter: 08/20/19 Time of Encounter: 15:16 - Exam Vitals: Temp Pulse Resp BP Pulse Ox 36.9 C 78 14 109/65 99 08/20/19 14:34 08/20/19 14:34 08/20/19 14:34 08/20/19 14:34 08/20/19 14:34 Exam: GENERAL: Not in distress. Alert and Oriented HEENT: EOMI, PERRLA MOUTH: Moist oral mucosa. CHEST AND LUNGS: Normal breath sounds, no wheezes or crackles HEART: S1 and S2 normal, no murmurs ABDOMEN: Prominent bilateral inguinal lymphadenopathy. Brownish serosanguinous fluid draining from the right side. alft [id number] SKIN: Normal color, no rahses, no lesions EXTREMITIES: No deformity, no edema, no tenderness, no joint swelling or clubbing NEUROLOGICAL: Normal cognition, normal motor and sensory exam. - Assessment and Plan (1) Inguinal lymphadenitis Current Visit: Yes Status: Acute Assessment and Plan: Serosanguinous discharge ion right side. Curdy discharge from left side as already described. ID on board. Wound cultures pending Continue Vanc and cefepime. (2) Cellulitis of groin, left Current Visit: Yes Status: Acute Assessment and Plan: Skinerythematous. Continue IV antibiotics (3) CLL (chronic lymphocytic leukemia) Current Visit: Yes Status: Chronic Assessment and Plan: Patient being followed by oncology Current treatment plan with palliative intent. Seen by palliative care. Pt understands and accepts current treatment with palliative intent for CLL. Oncology plans conservative observation of her blood counts. To transfuse as needed. (4) Anemia Current Visit: No Status: Acute Assessment and Plan: Patient has microcytic anemia which may be inflammatory or related to her CLL We will monitor (5) Hyponatremia Current Visit: No Status: Acute Assessment and Plan: Sodium remains at 133 Limit free water intake. Continue to monitor (6) DVT prophylaxis Current Visit: No Status: Acute Assessment and Plan: EPCDs. Hold heparin due to thrombocytopenia. - Time Spent with Patient Total time spent is greater than 50% in coordination of care (as documented) at patient's floor/unit and/or counseling patient: Internal Medicine: Result - Labs CBC & Chem 7: 08/20/19 05:23 08/20/19 05:23 Labs: Short CBC 08/20/19 Range/Units 05:23 WBC 130.7 H* (4.3-11.1) K/mcL Hgb 8.2 L (11.5-15.4) g/dL Hct 27.9 L (35.3-44.9) % Plt Count 99 L (140-400) K/mcL Neutrophils # 5.2 (1.6-8.9) K/mcL BMP 08/20/19 05:23 Sodium 133 L Potassium 5.0 Chloride 100 Carbon Dioxide 28 BUN 18 Creatinine 0.67 Glucose 81 Calcium 8.2 L - ABG Interpretation ABG results: PT/INR, D-dimer PT 11.6 Seconds (9.4-12.1) 08/16/19 06:09 Consult Discharge Plan - Plan Referrals: Michelet Almeida Jr, MD [Primary Care Provider] - __ (4) Anemia Qualifiers: Anemia type: bone marrow failure Bone marrow failure anemia type: unspecified bone marrow failure Qualified Code(s): D61.9 - Aplastic anemia, unspecified
--- NOTE | 2019-08-20 15:56 | Infectious Disease Progress No ---
ID Progress Note Date of Encounter: 08/20/19 Time of Encounter: 15:51 - Subjective Subjective: Patient seen and examined, no change clinically. no NAILS, NO CP, no diarrhea drainage from wounds unchaged VS noted labs noted cultures no growth to date - Objective CBC & Chem 7: 08/20/19 05:23 08/20/19 05:23 - Exam Vitals: Temp Pulse Resp BP Pulse Ox 98.4 F 78 14 109/65 99 08/20/19 14:34 08/20/19 14:34 08/20/19 14:34 08/20/19 14:34 08/20/19 14:34 Exam: GENERAL: Not in distress. Alert and Oriented HEENT: EOMI, PERRLA MOUTH: Moist oral mucosa. CHEST AND LUNGS: Normal breath sounds, no wheezes or crackles HEART: S1 and S2 normal, no murmurs ABDOMEN: soft no guarding lymph: bilateral inguinal lymphadenopathy with brownish serosanguinous drainage SKIN: Normal color, no rahses, no lesions EXTREMITIES: No deformity, no edema, no tenderness, no joint swelling or clubbing NEUROLOGICAL: Normal cognition, normal motor and sensory exam. - Assessment and Plan (1) Inguinal lymphadenitis Current Visit: Yes Status: Acute Likely secondary to CLL. Location: bilateral. Cultures from previous admissions on 07/19/2019 from the groin were positive for Citrobacter pansensitive and klebsiella R: Ampicillin/cefazolin. Treated with PO levaquin. Failed outpatient oral antibiotics. Progressively getting worse with worse drainage. Currently on vancomycin/cefepime will d/w heme/onc prognosis guarded at best SNOMED Code(s): 00860935, 522716773 (2) Cellulitis of groin, left Current Visit: Yes Status: Acute Secondary to inguinal lymphadenitis. CT pelvis reviewed. Patient is immunocompromised. Causative organism unclear. Unsure if wound cultures were collected. Patient states they were done, but no cultures are pending. Will contact lab. Discussed with nursing. Improved per patient report. Currently on Vanc and Cefepime. SNOMED Code(s): 53983406 (3) CLL (chronic lymphocytic leukemia) Current Visit: Yes Status: Chronic Diagnosed in 2012. Stage IV. No longer tolerating chemotherapy (last received in the spring). Appreciate hematology/oncology input. Prognosis poor. Palliative care consulted and patient wishes to pursue treatment for her infection at this time. SNOMED Code(s): 01550204 (4) Allergy to multiple antibiotics Current Visit: Yes Status: Acute Sulfa, Ceftin, penicillin, ciprofloxacin. Exact reaction not known. Patient does not remember. I believe most of them appears to be intolerances like nausea or feeling her heart racing. Denies hist ory of anaphylaxis. SNOMED Code(s): 749554541985008 Consult Discharge Plan - Plan Referrals: Michelet Almeida Jr, MD [Primary Care Provider] -
[2019-08-21] MEDS: Cefepime HCl 2,000 MG in Water for inj. (sterile) 20 ML IVP SCH (05:22)
[2019-08-21 06:55] LABS: Hematocrit 26.4 % (35.3-44.9); Hemoglobin 7.9 g/dL (11.5-15.4); Mean Corpuscular HGB Conc 29.9 g/dL (31.6-35.5); Mean Platelet Volume 8.9 fL (9.4-12.4); Red Cell Distribution Width 22.5 % (11.5-14.5)
[2019-08-21 06:56] LABS: Mean Corpuscular Hemoglobin 24.3 pg (28.0-33.3); Mean Corpuscular Volume 81.2 fL (83.0-100.0); Platelet Count 100 K/mcL (140-400); Red Blood Count 3.25 M/mcL (3.82-4.97)
[2019-08-21 06:59] LABS: White Blood Count 128.1 K/mcL (4.3-11.1)
[2019-08-21 07:57] VITALS: BP 123/70
[2019-08-21 08:00] LABS: Lymphocytes # 107.6 K/mcL (0.6-4.6); Monocytes # 2.6 K/mcL (0.0-1.3); Neutrophils # 17.9 K/mcL (1.6-8.9)
[2019-08-21 08:01] LABS: Anisocytosis 1+ (Not Present); Platelet Estimate Decreased (Normal); Smudge Cells Present (Not Present)
--- NOTE | 2019-08-21 09:27 | Discharge Summary ---
Orders not resulted at time of discharge: Pending orders 08/17/19 14:05 Culture,Anaerobic [RM] Stat Culture,Anaerobic [RM] Stat Date of Encounter: 08/21/19 Time of Encounter: 09:21 - Discharge Diagnosis (1) Inguinal lymphadenitis Priority: Primary Status: Acute (2) Cellulitis of groin, left Priority: Secondary Status: Acute (3) CLL (chronic lymphocytic leukemia) Priority: Secondary Status: Chronic (4) Anemia Priority: Secondary Status: Acute Qualifiers: Anemia type: bone marrow failure Bone marrow failure anemia type: unspecified bone marrow failure Qualified Code(s): D61.9 - Aplastic anemia, unspecified (5) Hyponatremia Priority: Secondary Status: Acute (6) DVT prophylaxis Priority: Secondary Status: Acute Hospital course: Ms. Vega is a 73 year old female with a PMHx of CLL with generalized lymphadenopathy who presented with right groin pain and discharge from the groin. She has significant inguinal lymphadenopathy with serosanguinous discharg e on the right and purulent discharge on the left. CT scan revealed extensive necrotic inguinal lymphadenopathy and no discrete abscess. She is not an ideal surgical candiate for removal of the inguinal lymohnodes since she will not heal properly and is likely not to survive the stress of surgery. Patient will be discharged on oral antibiotics with instruction for wound care for [facility] staff. Discharge discussed with: patient, nurse, social work, case management, life consultant - Time Spent with Patient Total time spent providing and/or coordinating discharge services: Time spent: Greater than 30 minutes (45 minutes) - Discharge Medications Prescriptions: New Doxycycline 100 mg PO BID 9 Days #18 capsule Continued Omeprazole [PriLOSEC] 40 mg PO BIDAC #60 capsule. Acetaminophen [Extra Strength Non-Aspirin] 500 mg PO Q4-6H PRN PRN Reason: Pain Albuterol Sulfate [Ventolin Hfa] 2 puff IH Q6H PRN PRN Reason: Shortness Of Breath levoFLOXacin [Levofloxacin] 750 mg PO DAILY 9 Days #9 tab Home Medications: Omeprazole [PriLOSEC] 40 mg PO BIDAC #60 capsule. 05/04/19 [Rx] Acetaminophen [Extra Strength Non-Aspirin] 500 mg PO Q4-6H PRN 07/19/19 [History] Albuterol Sulfate [Ventolin Hfa] 2 puff IH Q6H PRN 08/16/19 [History] Doxycycline 100 mg PO BID 9 Days #18 capsule 08/21/19 [Rx] levoFLOXacin [Levofloxacin] 750 mg PO DAILY 9 Days #9 tab 08/21/19 [Rx] Allergies/Adverse Reactions: Allergy/AdvReac Type Severity Reaction Status Date / Time Sulfa (Sulfonamide Allergy Unknown Unknown Verified 07/20/19 14:04 Antibiotics) cefdinir Allergy Redness of Verified 07/20/19 14:04 Skin Penicillins AdvReac Unknown increased Verified 07/20/19 14:04 heart rate ciprofloxacin [From Cipro] AdvReac increased Verified 07/20/19 14:04 heart rate ibrutinib [From Imbruvica] AdvReac See Verified 07/20/19 14:04 Comments Date of admission: 08/17/19 18:07 Primary care physician: Michelet Almeida Jr, MD Consults: 08/15/19 22:19 Consult to Nutrition [CONS] Routine Comment: Consulting Provider: NUTRITION Reason for Dietary Consult: Other Other:: Severe malnutrition. 08/16/19 06:00 Consult to Oncology Hematology [CONS] Routine Consulting Provider: Don Quintanilla Jr Reason for Consult: Stage 4 CLL, prognosis, and multiple admissions. Call Completed: No 08/16/19 14:01 Consult to Infectious Diseases [CONS] Routine Consulting Provider: Infectious Disease Eileen Reason for Consult: Bilateral inguinal lymphadenitis with purulent discharge. Call Completed: No 08/16/19 15:08 Consult to Palliative Care [CONS] Routine Comment: Consulting Provider: Palliative Care Eileen Reason for Consult: Patient with CLL currently being treated by oncology with palliative intent. Currently full code. But also states she wants to "give up" Call Completed: Yes 08/18/19 00:09 Consult to Wound Care [CONS] Routine Reason for Consult: wounds to bilateral groin Call Completed: No - Constitutional Vitals: Temp Pulse Resp BP Pulse Ox 36.6 C 69 14 123/70 100 08/21/19 07:56 08/21/19 07:56 08/21/19 07:56 08/21/19 07:56 08/21/19 07:56 Exam: GENERAL: Not in distress. Alert and Oriented HEENT: EOMI, PERRLA MOUTH: Moist oral mucosa. CHEST AND LUNGS: Normal breath sounds, no wheezes or crackles HEART: S1 and S2 normal, no murmurs ABDOMEN: Prominent bilateral inguinal lymphadenopathy. Brownish serosanguinous fluid draining from the right side. Open wound in left inguinal area from inital site of discharge. SKIN: Normal color, no rahses, no lesions EXTREMITIES: No deformity, no edema, no tenderness, no joint swelling or clubbing NEUROLOGICAL: Normal cognition, normal motor and sensory exam. - Patient Status Disposition: Home Health Service Condition: Fair Functional capacity at discharge: uses cane/walker Overall status at discharge: patient is progressing back to baseline - Discharge Instructions Follow Up With: Michelet Almeida Jr, MD [Primary Care Provider] - Forms: ED Satisfaction Letter - Diet and Activity Activity: resume usual activities as tolerated Diet: advance to your usual diet
--- NOTE | 2019-08-21 09:54 | Physician Discharge Referral ---
Home Health/Hosp Referral Info Transfer to: Home Health Provider in Charge Post Discharge: PCP - Diagnosis (1) Inguinal lymphadenitis Priority: Primary Status: Acute (2) Cellulitis of groin, left Priority: Secondary Status: Acute (3) CLL (chronic lymphocytic leukemia) Priority: Secondary Status: Chronic (4) Anemia Priority: Secondary Status: Acute (5) Hyponatremia Priority: Secondary Status: Acute (6) DVT prophylaxis Priority: Secondary Status: Acute - Respiratory Orders Smoking Cessation: Smoking cessation has been advised. For more information, call the [place] Tobacco Quit Line at 6-839-CUJB-NOW. - Dressing/Wound Care Site: Bilateral groin area Type of Dressing/Treatments w/Frequency: Wash with soap and water . Rinse well. Pat dry. lightly pack with mesalt ribbon. Cover with gauze and secure with tape. PLEASE DO THIS DAILY. - Services Needed Following services are medically necessary services: Nursing, Home Health Aide, Med Social Work - Transfer Medications Prescriptions: Doxycycline 100 mg PO BID 9 Days #18 capsule Transmission Status: Received by [facility] levoFLOXacin [Levofloxacin] 750 mg PO DAILY 9 Days #9 tab Transmission Status: Received by [facility] Home Medications: Omeprazole [PriLOSEC] 40 mg PO BIDAC #60 capsule. 05/04/19 [Rx] Acetaminophen [Extra Strength Non-Aspirin] 500 mg PO Q4-6H PRN 07/19/19 [History] Albuterol Sulfate [Ventolin Hfa] 2 puff IH Q6H PRN 08/16/19 [History] Doxycycline 100 mg PO BID 9 Days #18 capsule 08/21/19 [Rx] levoFLOXacin [Levofloxacin] 750 mg PO DAILY 9 Days #9 tab 08/21/19 [Rx] Allergies/Adverse Reactions: Allergy/AdvReac Type Severity Reaction Status Date / Time Sulfa (Sulfonamide Allergy Unknown Unknown Verified 07/20/19 14:04 Antibiotics) cefdinir Allergy Redness of Verified 07/20/19 14:04 Skin Penicillins AdvReac Unknown increased Verified 07/20/19 14:04 heart rate ciprofloxacin [From Cipro] AdvReac increased Verified 07/20/19 14:04 heart rate ibrutinib [From Imbruvica] AdvReac See Verified 07/20/19 14:04 Comments Certification: Further, I certify that my clinical findings support that this patient is homebound (i.e. absences from home require considerable and taxing effort and are for medical reasons or yazidism services or infrequently or short duration when for other reasons) because: Homebound Reason: Leaving home requires considerable and taxing effort due to condition Attestation: My signature below is to certify that this patient is under my care and that I, or nurse practitioner, or a physician's tiler's assistant working with me, has a yoew-mn-guae encounter with this patient.
--- NOTE | 2019-08-21 12:14 | Infectious Disease Progress No ---
ID Progress Note Date of Encounter: 08/21/19 Time of Encounter: 12:12 - Subjective Subjective: Patient seen and examined. No acute events noted overnight. Patient states she is exhausted and wants to go home because she hasn't slept in days. Denies fevers, chills, or rigors. Denies chest pain or cough. Reports some intermittent shortness of breath that is chronic. Denies oral thrush or skin rashes. STates the left groin pain is better and appears less red. She states the only pain she has is from removing the tape from her groin wounds. - Objective CBC & Chem 7: 08/21/19 05:34 08/20/19 05:23 - Exam Vitals: Temp Pulse Resp BP Pulse Ox 97.9 F 69 14 123/70 100 08/21/19 07:56 08/21/19 07:56 08/21/19 07:56 08/21/19 07:56 08/21/19 07:56 Exam: Head: Atraumatic, normal inspection, normocephalic. Eye: EOMI, PERRLA, no scleral icterus noted. ENT: Mucous membranes moist. No odontogenic infection noted. Neck: Normal inspection, no meningismus. Respiratory: Clear to auscultation. No rales, respiratory distress, rhonchi, or wheezes noted. Cardiovascular: Regular rate and rhythm, S1 and S2 audible. No murmurs, rubs, or gallops. GI: Soft, nondistended, normal bowel sounds. Non-tender. Extremities:No joint swelling, pedal edema, or tenderness noted. Left groin with a palpable, tender mass to the left upper thigh. Bilateral groin dressings C/d/I without surrounding erythema, warmth, or tenderness. Neurological: Alert, oriented 3, no focal deficits. Psychiatric: normal affect, normal mood. Skin: Dry, intact, warm. Normal color. No rashes. - Assessment and Plan (1) Inguinal lymphadenitis Status: Acute Likely secondary to CLL. Location: bilateral. Cultures from previous admissions on 07/19/2019 from the groin were positive for Citrobacter pansensitive and klebsiella R: Ampicillin/cefazolin. Treated with PO levaquin. Failed outpatient oral antibiotics. Progressively g etting worse with worse drainage. Clinically improved since admission. Wound cultures from this admission are no growth. Currently on vancomycin/cefepime. SNOMED Code(s): 52691791, 180998650 (2) Cellulitis of groin, left Status: Acute Secondary to inguinal lymphadenitis. CT pelvis reviewed. Patient is immunocompromised. Causative organism unclear. Wound culture is no growth. Improved. Currently on Vanc and Cefepime. SNOMED Code(s): 68408217 (3) CLL (chronic lymphocytic leukemia) Status: Chronic Diagnosed in 2012. Stage IV. No longer tolerating chemotherapy (last received in the spring). Appreciate hematology/oncology input. Prognosis poor. Palliative care consulted and patient wishes to pursue treatment for her infection at this time. SNOMED Code(s): 84391740 (4) Allergy to multiple antibiotics Status: Acute Sulfa, Ceftin, penicillin, ciprofloxacin. Exact reaction not known. Patient does not remember. I believe most of them appears to be intolerances like nausea or feeling her heart racing. Denies history of anaphylaxis. SNOMED Code(s): 082069319043586 - Recommendations Recommendations: Dressing changes per the wound care team. Case discussed with Hem/Onc. States the drainage could be due to necrosis. Continue Vancomycin IV. Pharmacy to dose. Goal trough ~15. Continue cefepime 2 grams IV Q12H. Duration of treatment depends on the clinical picture. Monitor renal function and for drug toxicity and dose-adjust antibiotics. Further recommendations to follow from Dr. Ponce. Consult Discharge Plan - Plan Instructions: Doxycycline (By mouth), Levofloxacin (By mouth), Urinary Tract Infection in Women (DC), Cellulitis (DC) Referrals: Michelet Almeida Jr, MD [Primary Care Provider] - (Web request. Office will call with date and time of appointment. Thank you) Prescriptions: Doxycycline 100 mg PO BID 9 Days #18 capsule Transmission Status: Received by [facility] levoFLOXacin [Levofloxacin] 750 mg PO DAILY 9 Days #9 tab Transmission Status: Received by [facility] - Attending Attestation I have personally performed a face to face evaluation on this patient. I have reviewed and agree with the care plan. History and Exam by me shows: Assessment and Plan: Inguinal lymphadenitis Celluliis of gorin left CLL multiple antibiotics allergies REcommendations: AT this point I had a long discuss with heme/onc and with patients. all cutlures remain negative. I'm not sure we need to pursue ordering toxo, catscratch dz, AFB and fungal cultures. most likely cause of her drainage is due to necrotic lymphadenitis for the CLL itself. no further recommendations d/w family at bedside and explained to them the situation prognosis poor
[2019-08-21] MEDS ORDERED: Aminoglycoside Consult 1 EACH MC ONE (14:11)
--- NOTE | 2019-08-23 11:44 | Electrocardiograph Report ---
[address] [place], [place] [address] Test Date: 2019-08-16 Pat Name: Miguelina Vega Department: 115 Room: 3A32 Gender: F Senior Front End Engineer: : [id number] Requested By: Kris Mckay Order Number: [id number] Reading MD: Tank Huynh Measurements Intervals [place] Rate: 68 P: 20 NM: 164 QRS: -51 QRSD: 121 T: 18 QT: 388 QTc: 405 Interpretive Statements SINUS RHYTHM LEFT ANTERIOR FASCICULAR BLOCK Electronically Signed On 08-23-2019 11:42:37 EDT by Tank Huynh
== END 2019-08-21 14:12 | disposition home health service (06) | DRG 602 ==
LOC: 3ANU 14:58 → EMEROOARM 14:58 → SUATTDRO 19:21 → 3ANU 19:48
PROVIDERS: ADMIT Internal Medicine; ATTEND Internal Medicine

== ENCOUNTER 2019-09-15 16:56 | Inpatient (IN) ==
[2019-09-15 17:32] LABS: Eosinophils % 0.1 %; Nucleated Red Blood Cells 0.1 /100 WBC (0)
[2019-09-15 17:33] LABS: Eosinophils # 0.1 K/mcL (0.0-0.6); Hemoglobin 7.3 g/dL (11.5-15.4); Immature Granulocytes % 0.6 % (0-4); Lymphocytes % 80.7 %; Mean Corpuscular HGB Conc 30.4 g/dL (31.6-35.5); Mean Corpuscular Hemoglobin 24.6 pg (28.0-33.3); Mean Corpuscular Volume 80.8 fL (83.0-100.0); Mean Platelet Volume 9.1 fL (9.4-12.4); Monocytes % 13.7 %; Red Blood Count 2.97 M/mcL (3.82-4.97); Red Cell Distribution Width 23.9 % (11.5-14.5); Segmented Neutrophils % 4.9 %
[2019-09-15 17:34] LABS: Lymphocytes # 85.9 K/mcL (0.6-4.6); Monocytes # 14.6 K/mcL (0.0-1.3); Neutrophils # 5.2 K/mcL (1.6-8.9); Platelet Count 55 K/mcL (140-400)
[2019-09-15 17:40] LABS: White Blood Count 106.4 K/mcL (4.3-11.1)
[2019-09-15 17:49] LABS: BUN/Creatinine Ratio 18 (6-26); Blood Urea Nitrogen 17 mg/dL (8-23); Carbon Dioxide 25 mEq/L (23-29); Chloride 102 mEq/L (98-107); Glucose 88 mg/dL (70-105); Osmolality,Calculated 279 (280-300); Potassium 5.2 mEq/L (3.5-5.1); Sodium 134 mEq/L (136-145); eGFR For African Americans > 60 (> 60); eGFR For Non-African Americans 56 (> 60)
[2019-09-15 17:57] LABS: Platelet Estimate Marked Decrease (Normal); Reactive Lymphocytes Present (Not Present)
[2019-09-15] MEDS ORDERED: Naloxone 0.4 MG/ML INJ IVP PRN (23:03)
[2019-09-15] MEDS ORDERED: 0.9 % Sodium Chloride 1,000 ML IVC SCH (23:15)
[2019-09-15] MEDS ORDERED: Calcium Gluconate 1gm/50mL 1 GM/50 ML BAG IVPB ONE (23:30)
[2019-09-16 00:44] LABS: Nucleated Red Blood Cells 0.1 /100 WBC (0); Red Cell Distribution Width 22.8 % (11.5-14.5)
[2019-09-16 00:46] LABS: Hematocrit 24.3 % (35.3-44.9); Hemoglobin 7.5 g/dL (11.5-15.4); Mean Corpuscular HGB Conc 30.9 g/dL (31.6-35.5); Mean Corpuscular Hemoglobin 25.3 pg (28.0-33.3); Mean Corpuscular Volume 81.8 fL (83.0-100.0); Red Blood Count 2.97 M/mcL (3.82-4.97)
[2019-09-16 00:54] LABS: INR 1.1; Prothrombin Time 12.5 Seconds (9.4-12.1)
[2019-09-16 00:57] LABS: Platelet Count 46 K/mcL (140-400)
[2019-09-16 00:59] LABS: White Blood Count 93.4 K/mcL (4.3-11.1)
[2019-09-16 01:04] LABS: Alanine Aminotransferase 3 Units/L (7-52); Albumin 2.6 g/dL (3.5-5.7); Albumin/Globulin Ratio 1.5 (1.1-2.2); Alkaline Phosphatase 84 Units/L (34-104); Aspartate Amino Transferase 11 Units/L (13-39); BUN/Creatinine Ratio 18 (6-26); Bilirubin,Total 0.6 mg/dL (0.3-1.0); Blood Urea Nitrogen 17 mg/dL (8-23); Calcium 7.7 mg/dL (8.6-10.3); Carbon Dioxide 24 mEq/L (23-29); Chloride 103 mEq/L (98-107); Globulin 1.7 g/dL (2.4-3.5); Glucose 80 mg/dL (70-105); Magnesium 1.5 mg/dL (1.6-2.6); Osmolality,Calculated 281 (280-300); Phosphorous 3.2 mg/dL (2.7-4.5); Sodium 135 mEq/L (136-145); Total Protein 4.3 g/dL (6.4-8.9); eGFR For African Americans > 60 (> 60); eGFR For Non-African Americans 57 (> 60)
[2019-09-16 01:19] LABS: Anisocytosis 3+ (Not Present); Lymphocytes # 74.7 K/mcL (0.6-4.6); Monocytes # 1.9 K/mcL (0.0-1.3); Neutrophils # 16.8 K/mcL (1.6-8.9); Platelet Estimate Marked Decrease (Normal); Smudge Cells Present (Not Present)
[2019-09-16 01:20] LABS: Microcytosis Present (Not Present); Polychromasia 2+ (Not Present)
[2019-09-16] MEDS: *HR* Heparin 5,000 UNIT/ML VIAL SQ SCH ×3 (06:28→20:20)
[2019-09-16 07:21] LABS: Troponin I < 0.03 ng/mL (< 0.04)
[2019-09-16 08:02] LABS: Red Cell Distribution Width 22.6 % (11.5-14.5)
[2019-09-16 08:03] LABS: Hematocrit 24.4 % (35.3-44.9); Hemoglobin 7.6 g/dL (11.5-15.4); Mean Corpuscular HGB Conc 31.1 g/dL (31.6-35.5); Mean Corpuscular Hemoglobin 25.3 pg (28.0-33.3); Mean Corpuscular Volume 81.3 fL (83.0-100.0); Mean Platelet Volume 9.4 fL (9.4-12.4)
[2019-09-16 08:05] LABS: Platelet Count 49 K/mcL (140-400)
[2019-09-16 08:07] LABS: White Blood Count 99.8 K/mcL (4.3-11.1)
[2019-09-16] MEDS ORDERED: Ondansetron ODT 4 MG TAB.RAPDIS SL PRN (09:47)
[2019-09-16 10:11] LABS: Lactate Dehydrogenase 172 Units/L (140-271)
[2019-09-16] MEDS ORDERED: 0.9 % Sodium Chloride 250 ML ONE (10:49)
[2019-09-16 17:10] LABS: Hematocrit 27.8 % (35.3-44.9); Hemoglobin 9.3 g/dL (11.5-15.4)
[2019-09-17 01:59] LABS: Red Cell Distribution Width 22.2 % (11.5-14.5)
[2019-09-17 02:00] LABS: Hematocrit 28.1 % (35.3-44.9); Hemoglobin 8.8 g/dL (11.5-15.4); Mean Corpuscular HGB Conc 31.3 g/dL (31.6-35.5); Mean Corpuscular Hemoglobin 25.7 pg (28.0-33.3); Mean Corpuscular Volume 82.2 fL (83.0-100.0); Red Blood Count 3.42 M/mcL (3.82-4.97)
[2019-09-17 02:06] LABS: Platelet Count 45 K/mcL (140-400); White Blood Count 114.9 K/mcL (4.3-11.1)
[2019-09-17 02:14] LABS: BUN/Creatinine Ratio 19 (6-26); Blood Urea Nitrogen 18 mg/dL (8-23); Carbon Dioxide 24 mEq/L (23-29); Chloride 102 mEq/L (98-107); Glucose 92 mg/dL (70-105); Osmolality,Calculated 278 (280-300); Potassium 4.4 mEq/L (3.5-5.1); Sodium 133 mEq/L (136-145); eGFR For African Americans > 60 (> 60); eGFR For Non-African Americans 58 (> 60)
[2019-09-17] MEDS: *HR* Heparin 5,000 UNIT/ML VIAL SQ SCH (05:36)
[2019-09-17 07:06] VITALS: BP 93/58
== END 2019-09-17 11:33 | disposition home health service (06) | DRG 841 ==
LOC: 3BNU 16:56 → EMEROOARM 16:56 → 3BNU 21:14
PROVIDERS: ADMIT Family Medicine; ATTEND Family Medicine